=== PATIENT | male | born 1935 | race Caucasian/White ===

== ENCOUNTER 2017-10-01 02:05 | Day surgery (SDC) | payer MEDICARE, BC ==
--- NOTE | 2017-09-27 19:56 | HISTORY AND PHYSICAL ---
DATE OF ADMISSION: October 01, 2017 CHIEF COMPLAINT Lymphoma. HISTORY OF PRESENT ILLNESS This is an 82-year-old male with lung cancer who developed two asymptomatic lumps in subcutaneous tissue on his left chest. These underwent biopsy and these were found to be a lymphoma. He is admitted at this time for port placement and bone marrow biopsy. ALLERGIES IODINE. MEDICATIONS 1. Aspirin 81 mg per day. 2. Cardura. 3. Cymbalta. 4. Diltiazem. 5. Hydrochlorothiazide. 6. Metoprolol. 7. Pravastatin. PAST SURGICAL HISTORY 1. He had a back operation. 2. Bilateral hernia repair. 3. Colonoscopy. 4. Lobectomy of the lung in 2014. 5. Subcutaneous mass biopsy. PHYSICAL EXAMINATION GENERAL: An 82-year-old male in no acute distress. LUNGS: Breath sounds bilaterally. HEART: Regular rhythm. He has a healing biopsy site in the left chest. IMPRESSION Lymphoma. PLAN PowerPort placement and bone marrow biopsy. [facility]
[~2017-10-01] VITALS: Ht 172.7 cm; Wt 74.8 kg
[2017-10-01] VITALS (8 sets, daily range): BP systolic 102–154; BP diastolic 69–109
[~2017-10-01 02:05] MED LIST changes: -HYDR-4309 PO
[2017-10-01] MEDS ORDERED: HEPARIN SOD LCK FLSH 100 UN/ML ONE ×2 (06:22)
[2017-10-01] MEDS ORDERED: NS(*) 0.9% 10 ML VIAL 10 ML ONE (06:23)
[2017-10-01] MEDS ORDERED: ceFAZolin(*) 2GM/D5W 50ML 50 ML IVPB ONE (07:35)
[2017-10-01] MEDS ORDERED: NORMOSOL R SOLN(*) 1000 ML BAG 1,000 ML IV PRN (08:00)
[2017-10-01] MEDS ORDERED: LIDOCAINE/SOD BICARB 8.4% SYR ID ONE (08:00)
[2017-10-01] MEDS ORDERED: MIDAZOLAM 2 MG/2 ML VIAL IVP PRN (08:00)
[2017-10-01] MEDS ORDERED: FAMOTIDINE 20 MG TAB PO ONE (08:00)
[2017-10-01] MEDS ORDERED: LIDO/EPI 1% MDV 1:100,000 20ML INFIL ONE (08:16)
[2017-10-01 08:51] LABS: PLATELET COUNT, AUTOMATED 196 K/uL (150-450)
[2017-10-01] MEDS ORDERED: PROPOFOL EMUL(*) 10MG/ML 20 ML 60 ML ONE (09:54)
[2017-10-01] MEDS ORDERED: LIDOCAINE MPF 1% 5 ML VIAL ONE (09:54)
[2017-10-01] MEDS ORDERED: SUGAMMADEX SOD 200 MG/2 ML SDV ONE (10:00)
[2017-10-01] MEDS ORDERED: KETAMINE HCL 200 MG/20 ML MDV ONE (10:43)
[2017-10-01] MEDS ORDERED: LIDOCAINE 2% JELLY 5 ML TUBE ONE (10:55)
[2017-10-01] MEDS ORDERED: HYDR-4309 PO (11:35)
--- NOTE | 2017-10-01 13:01 | RADIOLOGY IMAGING REPORT ---
FACILITY: [facility] PATIENT NAME: Yung Jha : 1935 MR: [id number] V: [id number] EXAM DATE: ORDERING PHYSICIAN: BINU OROPEZA TECHNOLOGIST: Location: [facility] - [place] Patient: Yung Jha : 1935 Visit/Account:[id number] Date of Sevice: 10/01/2017 Exam: C-ARM FLUORO PORT/CATH Indication: CHEMO PORT PLACEMENT, RAD Comparison: None available Findings: Fluoroscopy is provided for Mediport placement images show placement of right IJ Mediport w ith catheter tip in the superior vena cava. Fluoroscopy time 9.5 seconds DOSE: DAP was 0.86795 mGy*m2. IMPRESSION: Fluoroscopy for Mediport placement Report Dictated By: Jon Harris at 10/01/2017 12:55 PM Report E-Signed By: Jon Harris at 10/01/2017 12:56 PM WSN:[email or web address]
--- NOTE | 2017-10-01 20:00 | RADIOLOGY IMAGING REPORT ---
FACILITY: [facility] - [place] PATIENT NAME: OSMAR LEIVA : [id number] MR: [id number] V: [id number] EXAM DATE: ORDERING PHYSICIAN: JOESPH MCCARTY TECHNOLOGIST: Jasmin Ricardo EXAMINATION:TWO-DIMENSIONAL ECHOCARDIOGRAPH REASON: 2D Measurements (normal values in centimeters) LV endLV endRV endVent.LV PostAorticLeftPercent DiastolicSystolicDiastolicSeptumWallRootAtriumShortening (3.5-5.7)(0.9-2.6)(0.6-1.1)(0.6-1.1)(2.0-3.7)(1.9-4.0)(25-35%) [id number]% STROKE VOLUME: 53 mL ESTIMATED EJECTION FRACTION:63% PARASTERNAL LONG AXIS: Overall left ventricular systolic function appears to be normal. Right ventricle is enlarged. The left atrium is enlarged. There is mild left ventricular thickening but no evidence for any outflow tract obstruction. Mild mitral annular calcification and some aortic sclerosis. Color examination of the valves reveals some mitral insufficiency as well as tricuspid insufficiency present. PARASTERNAL SHORT AXIS: Overall left ventricular function again appears to be normal with mild concentric left ventricular thickening present. The aortic valve is trileaflet in configuration. It is sclerotic but does not appear to be stenotic. Pulmonic valve appears to open normally. Color examination of the pulmonic valve reveals a mild amount of pulmonic insufficiency. Color examination of the aortic valve was unremarkable. Color examination of the tricuspid valve revealed some tricuspid insufficiency. APICAL FOUR AND TWO CHAMBER: Overall left ventricular systolic function appears to be normal. Right ventricle, right atrium and left atrium appear to be enlarged. The left atrium and right atrium are severely enlarged. Left atrial volume is measured at 41 mL/m2. Right atrial volume measured at 39 mL/m2. Mild to moderate amount of both mitral and tricuspid insufficiency is noted. The tricuspid regurgitation V-max is measured at 3.33 m/sec. Estimated right atrial pressure is 15 mmHg giving a total right ventricular systolic pressure of 59 mmHg. No wall motion abnormalities were noted. SUBCOSTAL VIEW: No pericardial effusion is noted. No atrial septal or ventricular septal defects were appreciated. The patient appears to be in atrial flutter with a controlled rate. No thrombi are noted in any of the chambers but the left atrial appendage is not seen. OVERALL IMPRESSION: 1. Normal left ventricular ejection fraction. We were unable to accurately identify the diastolic function as the patient is in atrial flutter. No thrombi are noted in any of the chambers. The left atrial appendage is not seen. 2. There is mild concentric left ventricular thickening. No evidence for any outflow tract obstruction. 3. Mild right ventricular enlargement and severe left atrial and right atrial enlargement. 4. A trileaflet aortic valve with aortic sclerosis but no stenosis. The valve area was measured at 2.9 cm2. 5. A moderate amount of both mitral and tricuspid insufficiency. Estimated right ventricular systolic pressure is 59 mmHg which does include an estimated right atrial pressure of 15 mmHg indicating severe pulmonary hypertension and increased right ventricular systolic pressures. 6. A mild amount of pulmonic insufficiency present. Dictated by: Silvio Torres M.D. on 10/01/2017 at 9:16 Transcribed by: SANTANA on 10/01/2017 at 13:41 Approved by: Silvio Torres M.D. on 10/01/2017 at 19:58 [facility]
--- NOTE | 2017-10-01 21:40 | OPERATIVE REPORT 1 ---
EVENT DATE: October 01, 2017 SURGEON: Gasper Hernandez MD ANESTHESIOLOGIST: Rodríguez Bird MD ANESTHESIA: Sedation. PREOPERATIVE DIAGNOSIS Lymphoma. POSTOPERATIVE DIAGNOSIS Lymphoma. PROCEDURE PERFORMED PowerPort placement. DESCRIPTION OF PROCEDURE The patient was placed in the supine position and given intravenous sedation. His right neck and chest were prepped and draped in a sterile fashion. We anesthetized the skin with 1% Xylocaine with epinephrine. We identified the right internal jugular vein with the ultrasound and used the ultrasound to help guide the needle into position into the internal jugular vein. The guidewire was then passed. Fluoroscopy was used to show the guidewire in place in the superior vena cava. We anesthetized the anterior chest wall and made an incision. We created a pocket for the port. We then tunneled the catheter from the chest site through the neck site. We passed the dilator introducer sheath over the guidewire. We removed the guidewire and dilator and passed the catheter through the sheath. We used fluoroscopy to position the catheter in the superior vena cava. We cut the catheter to the appropriate length and attached it to the port. The port was sutured down with 3-0 nylon. It was aspirated and flushed with saline and heparin. The subcutaneous tissue was reapproximated with 4-0 Maxon. The skin was closed with interrupted 4-0 Maxon. Steri-Strips and Airstrip were placed. The patient tolerated the procedure well with no apparent complications. [facility]
== END 2017-10-01 13:13 | disposition home or self-care (01) ==
LOC: OR 02:05
PROVIDERS: ATTEND Surgery
DX: C85.90 Non-Hodgkin lymphoma, unspecified, unspecified site (principal)
CPT/HCPCS: 36415; 36561; 76942; 77001; 85025; 93306; A9270; C1788; J1642; J2001; J2704; J3490; J0690

== ENCOUNTER → 2017-10-01 | Outpatient (CLI) | payer MEDICARE, BC ==
[~2017-10-01] MED LIST: ASPI-1471 PO; ASPI-715 PO; ASPI-816 PO; DILT-104 PO; DILT180C86 PO; DOXA4TAB58 PO; DOXA8TAB62 PO; DULO30CA35 PO; FLEC50TA16 PO; FLU IM; HYDR-2963 PO; HYDR-2970 PO; HYDR-385 PO; HYDR-4309 PO; METO50TA19 PO; PRAV10TA45 PO
== END ==
LOC: RAD 07:14
PROVIDERS: ATTEND Surgery Vascular Surgery
DX: I51.7 Cardiomegaly (principal); I35.8 Other nonrheumatic aortic valve disorders; I34.0 Nonrheumatic mitral (valve) insufficiency; I27.20 Pulmonary hypertension, unspecified; I37.1 Nonrheumatic pulmonary valve insufficiency

== ENCOUNTER → 2017-11-08 | Outpatient (CLI) | payer MEDICARE, BC ==
[~2017-11-08] MED LIST changes: +APIX5TAB PO; +HYDR-4309 PO; +LORA-1455 PO; +ONDA8TAB94 PO; +PRED50TA22 PO; +PROC10TA4 PO; +TRAM-420 PO
--- NOTE | 2017-11-11 19:27 | RADIOLOGY IMAGING REPORT ---
FACILITY: [facility] [place] PATIENT NAME: OSMAR LEIVA : [id number] MR: [id number] V: [id number] EXAM DATE: ORDERING PHYSICIAN: KAY CLOUD TECHNOLOGIST: Marianne Koehler EXAMINATION:TWO-DIMENSIONAL ECHOCARDIOGRAPH REASON:CHEMO 2D Measurements (normal values in centimeters) LV endLV endRV endVent.LV PostAorticLeftPercent DiastolicSystolicDiastolicSeptumWallRootAtriumShortening (3.5-5.7)(0.9-2.6)(0.6-1.1)(0.6-1.1)(2.0-3.7)(1.9-4.0)(25-35%) [id number] STROKE VOLUME: 48ml ESTIMATED EJECTION FRACTION:63% PARASTERNAL LONG AXIS: Overall left ventricular systolic function appears to be normal. Left atrium appears to be enlarged. There is mild aortic sclerosis but does not appear to be stenotic. Moderate amount of mitral insufficiency is noted. Patient appears to be in atrial flutter. No thrombi are noted & the left atrial appendage is not seen. PARASTERNAL SHORT AXIS: Overall left ventricular systolic function appears to be normal. No wall motion abnormalities are noted. Aortic valve is sclerotic but does not appear to be stenotic. It is trileaflet in configuration. Pulmonic valve also appears to open normally. There is a mild amount of pulmonic insufficiency noted. APICAL FOUR AND TWO CHAMBER: Normal left ventricular ejection fraction. Both atrium are enlarged. The left atrial volume & right atrial volume are increased at 33 & 42ml/m2. Left atrium is mild to moderately enlarged. The right atrium is severely enlarged. Right ventricle is enlarged. This also decreased right ventricular function has a TAPSE measured at 1.4 indicating mild decrease in right ventricular function. No thrombi are noted in the chambers. Left atrial appendage is not seen. Moderate amount of mitral insufficiency is noted. Mitral regurgitant volume is 5ml 10% regurgitant fraction & effective regurgitant orifice is .3. SUBCOSTAL VIEW: No pericardial effusion was noted. No atrioseptal or ventriculoseptal defects were appreciated. The PISA of the mitral regurgitation is .3cm at an aliasing velocity of 31. OVERALL IMPRESSION: 1. Normal left ventricular ejection fraction of 63%. We were unable to accurately characterize the diastolic function as the patient is in atrial fib flutter. No thrombi are noted in the chambers but the left atrial appendage is not seen. 2. Mild decrease in right ventricular function. 3. Mild enlargement of the left atrium & severe enlargement of the right atrium. The right ventricle is also mildly enlarged. 4. A trileaflet aortic valve with aortic sclerosis but no stenosis & no insufficiency was noted. 5. A mild amount of pulmonic insufficiency. 6. A moderate amount of mitral insufficiency but no mitral stenosis. 7. A mild to moderate amount of tricuspid insufficiency with estimated right ventricular systolic pressures of 63mm Hg which does include an estimated right atrial pressure of 15mm Hg indicating severe pulmonary hypertension & increased right ventricular systolic pressures. 8. In comparison to the examination done on 10/01/17 no appreciable change was noted. Dictated by: Silvio Torres M.D. on 11/08/2017 at 18:26 Transcribed by: RIGOBERTO on 11/11/2017 at 13:37 Approved by: Silvio Torres M.D. on 11/11/2017 at 19:26 [facility]
== END ==
LOC: US 14:22
PROVIDERS: ATTEND Nurse Practitioner Family
DX: I48.91 Unspecified atrial fibrillation (principal); I51.7 Cardiomegaly; I25.10 Atherosclerotic heart disease of native coronary artery without angina pectoris; I37.1 Nonrheumatic pulmonary valve insufficiency; I34.0 Nonrheumatic mitral (valve) insufficiency; I27.20 Pulmonary hypertension, unspecified
CPT/HCPCS: 93308; 93325

== ENCOUNTER 2017-11-21 10:00 | Outpatient (RCR) | payer MEDICARE, BC ==
--- NOTE | 2017-10-11 13:20 | PT INITIAL EVALUATION ---
MEDICAL DIAGNOSIS: Lymphoma TREATMENT DIAGNOSIS: Lymphoma, Neuropathy of hands and feet, Generalized Weakness DATE OF ONSET: 10/11/17 SUBJECTIVE: Yung is a 82 year old male presenting to physical therapy following development and initiation of treatment for Lymphoma. Pt is to start R-CHOP regime today, with Neulasta and is to be evaluated for functional well- being. Oncology nurse practitioner is present for pt education. 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 Pt reports that he used to be very active and would work out regularly, but over the last 6 months has had great decline in status. REHAB PROBLEM LIST: Increased Pain Decreased ROM Decreased Strength Impaired Transfers Decreased Endurance Decreased Balance Decreased Function Decreased ADL's Decreased Mobility Decreased Gait PREVIOUS MEDICAL HISTORY: See EMR OCCUPATION: Retired OBJECTIVE: B fingers are tight, swollen and shiny in appearance. Posture: Pt has forward head posture with B rounded shoulders. ROM: ROM to be tested at next visit. Strength: Strength to be tested at next visit. Sensation: Pt reports numbness in distal fingers and toes B. In addition pt reports occasional L arm numbness and numbness in feet that radiates up to the level of the knee with associated swelling. Mobility: Pt must utilize B UE for support with transfer from seated<>standing. Balance: 4 stage balance: NBOS: 30 with increased sway, Mod-Tandem: L fwd: 30 sec, R fwd: 10 sec. Other Objective Findings: ECOG Performance Status: grade 3 FACT-G: PWB: 16, SWB: , EWB: , FWB: 09/26, Total Score: 61/108 ASSESSMENT: Pt shows signs and symptoms consistent with generalized weakness, neuropathy and fatigue associated with lymphoma diagnosis. Physical therapy is indicated to address the above listed impairments as well as decrease further side-effects with oncology intervention. Short Term Goals In 3 months pt will improve static standing balance to >30 tandem B, and >15 seconds SLS B for improved functional mobility and stability, and decreased fall risk. In 3 months pt will maintain and improve FACT-G score to >66/108 for improved well being status with ongoing oncological care. In 6 months pt will be independent with neuropathy program and report no increase in neuropathy in hands or feet. In 3 months pt will maintain and improve FACT-G score to >66/108 for improved well being status with ongoing oncological care. In 6 months pt will improve ECOG Performance Status to grade 2 or lower for improved functional mobility and activity for improved oncological outcomes. In 6 months pt will be independent with HEP to maintain functional strength and mobility for ADL's. Patient's Goals Decrease neuropathy, maintain and improve function. PLAN: Patient to be seen for Manual Therapy/STM/MET Strengthening/condition Ice/Heat Range of Motion Spinal Stabilization Ultrasound Stretching Iontophoresis Neuromuscular Re-ed Closed Chain Program Electrical Stim Posture/Body mechanics Gait Trg/Balance Trg Biofeedback Home Exercise Program Mech./Manual Traction Therapeutic Activities Pelvic Floor 1x/Week for 4 Months If you have any questions, comments, or concerns about this report or plan, please contact me at . Thank you, Christine Iraheta, PT, DPT, CLT MTDD
--- NOTE | 2017-11-04 14:34 | Oncology Note ---
Patient called the clinic on 11-01-17 to report that he will not use the tramadol as prescribed. He reports that it is an opiod "strong opiod" and he was not happy that it was prescribed. In review, he is currently taking ibuprofen 400- 600mg twice daily to three times daily for pain management and is currently on Eliquis. The risks were reviewed with patient to include bleeding and bruising with instructions to avoid any NSAIDS which included Ibuprofen. Tylenol was encouraged if he will not use tramadol. Patient verbalized that he heard my words and understood what I was saying but also reported that he has been fine so far so implied that he was not inclined to make a change. KAY CLOUD JANITORIAL TECH-BC, ONC Nov 04, 2017 14:34
[2017-11-27] MEDS ORDERED: LORA1TAB69 PO (13:04)
== END 2018-01-09 ==
LOC: PT 10:00
PROVIDERS: ATTEND Internal Medicine Hematology
DX: C85.90 Non-Hodgkin lymphoma, unspecified, unspecified site (principal); G62.9 Polyneuropathy, unspecified; M62.81 Muscle weakness (generalized); M54.5 Low back pain; R20.2 Paresthesia of skin; R53.83 Other fatigue
CPT/HCPCS: 97162

== ENCOUNTER 2017-11-27 10:55 | Emergency (ER) | payer MEDICARE, BC ==
--- NOTE | 2017-11-27 11:23 | EKG ---
FACILITY: [facility] PATIENT NAME: OSMAR LEIVA : [id number] MR: [id number] V: [id number] EXAM DATE: ORDERING PHYSICIAN: MARTINEZ BATRES TECHNOLOGIST: Test Reason : AFIB Blood Pressure : / mmHG Vent. Rate : 115 BPM Atrial Rate : 101 BPM P-R Int : 000 ms QRS Dur : 128 ms QT Int : 364 ms P-R-T Axes : 000 081 -20 degrees QTc Int : 503 ms Atrial fibrillation with rapid ventricular response Right bundle branch block Abnormal ECG No previous ECGs available Confirmed by BINH ROBERTS ([id number] on 11/27/2017 7:35:13 PM Referred By: Confirmed By:BINH ROBERTS
--- NOTE | 2017-11-27 11:26 | ER Report ---
History and Physical Time Seen By MD: 11:11 Hx. of Stated Complaint: Patient reported to [facility] he had trouble breathing yesterday. Cancer center reporting weight gain and new onset afib/flutter HPI/ROS CHIEF COMPLAINT: Short of breath HISTORY OF PRESENT ILLNESS: This is an 82-year-old male who presents to the emergency department from the [facility] for a rapid heart rate. 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 Patient is currently receiving chemotherapy for the B cell lymphoma and had his 3rd round of chemotherapy last since then he has not been feeling well progressively getting worse. Patient did call the [facility] yesterday spoke with Gregoria Sloan who suggested that with his increased shortness of breath he should start wearing his oxygen 22/04, however he states that he still having some increased shortness of breath. He did go in for follow -up today to the [facility] they noted his heart rate was in the 130s and subsequently sent him to the emergency department for further evaluation. Patient does have a history of atrial fibrillation. Patient states as long as he is on his oxygen he doesn't feel short of breath. Patient also has increased swelling in his lower extremities since last . He states that normally he has a small amount of edema but not this much. He denies headaches, chills, visual changes, headaches, rashes or chest pain. REVIEW OF SYSTEMS: Constitutional: No fever, no chills. Eyes: No discharge. ENT: No sore throat. Cardiovascular: No chest pain, no palpitations. Respiratory: As above. Gastrointestinal: No abdominal pain, no vomiting. Genitourinary: No hematuria. Musculoskeletal: No back pain. Skin: As above. Neurological: No headache. Allergies: Coded Allergies: Iodinated Contrast Media - IV Dye (Verified Allergy, Mild, RASH, 06/17/15) Home Meds Reported Medications Loratadine/Pseudoephedrine (CLARITIN-D 24 HOUR TABLET) 1 Each Tab.er.24h, 1 EACH PO 11/27/17 Apixaban (ELIQUIS) 5 Mg Tablet, 5 MG PO 1-2XD 10/09/17 Metoprolol Succinate (METOPROLOL SUCCINATE) 50 Mg Tab.er.24h, 1 TAB PO QDAY for Blood Pressure, TAB 08/15/15 Diltiazem Hcl (CARTIA XT) 180 Mg Cap.er.24h, 1 CAP PO BID, #180 CAP 3 Refills 08/06/14 Doxazosin Mesylate (Cardura) 8 Mg Tablet, 8 MG PO DAILY, 0 Refills 05/21/11 Pravastatin Sodium (Pravachol) 10 Mg Tablet, 10 MG PO QDAY, 0 Refills 05/21/11 Hydrochlorothiazide (Hydrochlorothiazide) 50 Mg Tablet, 50 MG PO DAILY, 0 Refills 05/21/11 Discontinued Scripts Prednisone (PREDNISONE) 50 Mg Tablet, 100 MG PO QDAY for 5 Days, #30 TAB 1 Refill Prov:PEDRO LUISGREGORIA Lisa METAL BUFFER-BC, ONC 10/31/17 Past Medical/Surgical History Patient has a past medical and surgical history of A. fib, hypertension, hypercholesterolemia, left upper lobectomy, enlarged prostate, wears glasses, hearing aides, lymphoma, hernia repair, cataracts, tonsillectomy, laminectomy. Reviewed Nurses Notes: Yes Hx Smoking: Yes Smoking Status: Former Smoker Exposure to Second Hand Smoke?: No Hx Substance Use Disorder: No Hx Alcohol Use: Yes Constitutional Vital Sign - Last 24 Hours 11/27/17 11/27/17 11/27/17 11/27/17 11:02 11:02 11:05 11:10 Temp 97.5 Pulse 150 167 121 Resp 20 13 B/P (MAP) 136/101 136/101 (113) Pulse Ox 97 96 98 O2 Delivery Nasal Cannula O2 Flow Rate 2.0 11/27/17 11/27/17 11/27/17 11/27/17 11:25 11:40 11:45 11:50 Pulse 103 100 86 91 Resp 12 16 16 11 Pulse Ox 99 99 99 98 11/27/17 11/27/17 11/27/17 11/27/17 11:53 11:55 12:00 12:10 Pulse 93 86 Resp 15 13 12 B/P (MAP) 129/86 (100) 125/88 (100) Pulse Ox 99 99 98 11/27/17 11/27/17 11/27/17 11/27/17 12:20 12:25 12:35 12:40 Pulse 87 95 ? Resp 11 10 B/P (MAP) 119/88 (98) Pulse Ox 98 99 11/27/17 11/27/17 11/27/17 2/28/18 12:45 12:50 12:55 13:00 Pulse 95 111 111 100 Resp 21 18 15 16 B/P (MAP) 143/84 (103) Pulse Ox 97 98 98 97 11/27/17 11/27/17 11/27/17 11/27/17 13:05 13:08 13:13 13:18 Pulse 104 111 107 99 Resp 13 12 9 13 Pulse Ox 98 97 95 92 11/27/17 11/27/17 11/27/17 11/27/17 13:20 13:23 13:28 13:33 Pulse 101 97 94 Resp 19 17 13 B/P (MAP) 127/78 (94) Pulse Ox 97 97 97 11/27/17 11/27/17 11/27/17 11/27/17 13:38 13:41 13:46 13:47 Pulse 89 85 93 Resp 12 14 16 B/P (MAP) 141/90 (107) Pulse Ox 97 97 98 Physical Exam General Appearance: The patient is alert, has no immediate need for airway protection and no signs of toxicity. Eyes: Pupils equal and round no pallor or injection. ENT, Mouth: Mucous membranes are moist. Respiratory: There are no retractions, lungs are clear to auscultation, no lung sounds to the left upper lobe due to left upper lobectomy. No crackles or course sounds. Cardiovascular: Irregular rate and rhythm, no murmurs, clicks or rubs. Gastrointestinal: Abdomen is soft and non tender, no masses, bowel sounds normal. Neurological: Alert and oriented 4. Moving all extremities. Following all commands. No focal neuro deficits. Skin: Warm and dry, no rashes. Musculoskeletal: Neck is supple non tender. Extremities bilateral lower extremity 1+ pitting edema. No erythema or cellulitic appearing skin. DIFFERENTIAL DIAGNOSIS: After history and physical exam differential diagnosis was considered for shortness of breath including but not limited to pulmonary infectious process, COPD, asthma, pulmonary embolus and congestive heart failure. Medical Decision Making Data Points Result Diagram: 11/27/17 1123 11/27/17 1123 Laboratory Hematology Test 11/27/17 11:23 Red Blood Count 3.66 M/uL (4.00-5.60) Mean Corpuscular Volume 92.1 fL (80.0-96.0) Mean Corpuscular Hemoglobin 31.2 pg (26.0-33.0) Mean Corpuscular Hemoglobin Concent 33.9 g/dL (32.0-36.0) Red Cell Distribution Width 16.2 % (11.5-14.5) Mean Platelet Volume 9.4 fL (7.2-11.1) Neutrophils (%) (Auto) 91.8 % (39.4-72.5) Lymphocytes (%) (Auto) 2.5 % (17.6-49.6) Monocytes (%) (Auto) 5.0 % (4.1-12.4) Eosinophils (%) (Auto) 0.4 % (0.4-6.7) Basophils (%) (Auto) 0.3 % (0.3-1.4) Nucleated RBC Relative Count (auto) 0.0 /100WBC Neutrophils # (Auto) 12.6 K/uL (2.0-7.4) Lymphocytes # (Auto) 0.3 K/uL (1.3-3.6) Monocytes # (Auto) 0.7 K/uL (0.3-1.0) Eosinophils # (Auto) 0.0 K/uL (0.0-0.5) Basophils # (Auto) 0.0 K/uL (0.0-0.1) Nucleated RBC Absolute Count (auto) 0.00 K/uL Peripheral Blood Smear Yes Y/N D-Dimer Quantitative (PE/DVT) 1.44 ug/ml (0-0.50) Sodium Level 131 mmol/L (137-145) Potassium Level 3.6 mmol/L (3.5-5.0) Chloride Level 91 mmol/L (98-107) Carbon Dioxide Level 31 mmol/L (22-30) Blood Urea Nitrogen 21 mg/dl (9-21) Creatinine 0.80 mg/dl (0.66-1.25) Glomerular Filtration Rate Calc > 60.0 Random Glucose 90 mg/dl (75-110) Calcium Level 8.6 mg/dl (8.4-10.2) Total Bilirubin 0.9 mg/dl (0.2-1.3) Aspartate Amino Transf (AST/SGOT) 24 U/L (0-35) Alanine Aminotransferase (ALT/SGPT) 62 U/L (0-56) Alkaline Phosphatase 141 U/L (0-126) Troponin I < 0.012 ng/ml B-Type Natriuretic Peptide 205 pg/ml (0-100) Total Protein 5.9 gm/dl (6.3-8.2) Albumin 3.0 g/dl (3.5-5.0) Chemistry Test 11/27/17 11:23 White Blood Count 13.7 k/uL (4.5-11.0) Red Blood Count 3.66 M/uL (4.00-5.60) Hemoglobin 11.4 g/dL (14.0-18.0) Hematocrit 33.7 % (42.0-52.0) Mean Corpuscular Volume 92.1 fL (80.0-96.0) Mean Corpuscular Hemoglobin 31.2 pg (26.0-33.0) Mean Corpuscular Hemoglobin Concent 33.9 g/dL (32.0-36.0) Red Cell Distribution Width 16.2 % (11.5-14.5) Platelet Count 59 K/uL (150-450) Mean Platelet Volume 9.4 fL (7.2-11.1) Neutrophils (%) (Auto) 91.8 % (39.4-72.5) Lymphocytes (%) (Auto) 2.5 % (17.6-49.6) Monocytes (%) (Auto) 5.0 % (4.1-12.4) Eosinophils (%) (Auto) 0.4 % (0.4-6.7) Basophils (%) (Auto) 0.3 % (0.3-1.4) Nucleated RBC Relative Count (auto) 0.0 /100WBC Neutrophils # (Auto) 12.6 K/uL (2.0-7.4) Lymphocytes # (Auto) 0.3 K/uL (1.3-3.6) Monocytes # (Auto) 0.7 K/uL (0.3-1.0) Eosinophils # (Auto) 0.0 K/uL (0.0-0.5) Basophils # (Auto) 0.0 K/uL (0.0-0.1) Nucleated RBC Absolute Count (auto) 0.00 K/uL Peripheral Blood Smear Yes Y/N D-Dimer Quantitative (PE/DVT) 1.44 ug/ml (0-0.50) Glomerular Filtration Rate Calc > 60.0 Calcium Level 8.6 mg/dl (8.4-10.2) Total Bilirubin 0.9 mg/dl (0.2-1.3) Aspartate Amino Transf (AST/SGOT) 24 U/L (0-35) Alanine Aminotransferase (ALT/SGPT) 62 U/L (0-56) Alkaline Phosphatase 141 U/L (0-126) Troponin I < 0.012 ng/ml B-Type Natriuretic Peptide 205 pg/ml (0-100) Total Protein 5.9 gm/dl (6.3-8.2) Albumin 3.0 g/dl (3.5-5.0) Coagulation Test 11/27/17 11:23 D-Dimer Quantitative (PE/DVT) 1.44 ug/ml EKG/Imaging EKG Interpretation 12 lead EKG: Time of EKG 1113. Rhythm: Atrial fibrillation, RVR with a rate of 1:15. [place]: Right bundle branch block. QRS: normal ST segments: No ST segment elevation or depression identified. Inverted T waves in V1, V2, V3, V4. No reciprocal changes. This is significantly different from the 06/17/2015 EKG, the previous EKG showing sinus spray cardiac with a right bundle branch block. 12 lead EKG: Repeat EKG time 1227. Rhythm: Atrial fibrillation with PACs, 97 bpm. [place]: Bundle-branch block. QRS: normal ST segments: No ST depression or elevation identified. Imaging Location: [facility] Patient: Yung Jha : 1935 Visit/Account:[id number] Date of Sevice: 11/27/2017 CHEST W/O CONTRAST History: increased shortness of breath history of left lung cancer TECHNIQUE: Contiguous axial images were performed through the chest to the level of the adrenal glands. No IV contrast was administered. Coronal and sagittal reformatting was also performed. Dose Lowering Technique One of the following dose optimization techniques was utilized in the performance of this exam: Automated exposure control; adjustment of the mA and/ or kV according to the patient's size; or use of an iterative reconstruction technique. Specific details can be referenced in the facility's radiology CT exam operational policy. COMPARISON STUDIES: PET/CT September 10, 2017 Lungs / Pleura: There has been a decrease in the left pleural effusion although remains moderate in size. There is now a tiny right pleural effusion Subtle patchy groundglass opacities in the right lung appears similar to the prior study. Postsurgical changes about the left hilum with adjacent soft tissue density material appears similar to the prior study.. Mediastinum/nodes: There are calcified pretracheal and right hilar lymph nodes. The previous enlarged lymph nodes just anterior to the inferior right atrium are no longer seen Heart and vessels: At least moderate vascular calcifications are seen in the thoracic aorta and branch vessels including the coronary arteries. Musculoskeletal / Body wall: No aggressive appearing bone lesions are seen Upper abdomen: There is a large hiatal hernia. Calcified granulomas are present in the spleen IMPRESSION: Post surgical changes about the left hilum again noted with adjacent soft tissue density material that appears similar to the prior PET/CT There has been a partial decrease in left pleural effusion although remains moderate in size New tiny right pleural effusion Subtle patchy groundglass opacities throughout the right lung appears some are to the prior study may be chronic although an acute infectious/inflammatory process not excluded Evidence of a prior granulomatous process The previously enlarged lymph nodes just anterior and inferior to the right atrium are no longer seen Large hiatal hernia Report Dictated By: Tamara Flores MD at 11/27/2017 12:06 PM Report E-Signed By: Tamara Flores MD at 11/27/2017 12:18 PM WSN:TERENCE ED Course/Re-evaluation Clinical Indication for ER IV: IV Access ED Course The patient was admitted to room. His general physical obtained. Different diagnoses were considered. Patient's port was accessed. A CBC, CMP and d-dimer were obtained. Patient's WBCs 13.7, neutrophils 91.8 hemoglobin 11.4, hematocrit 33.7, sodium 131, BNP 205, d-dimer 1.44. Noncontrast CT showing similar postsurgical changes on the left hilum, decreased left pleural effusion although still moderate in size, small right pleural effusion, subtle groundglass opacities through the right lung which may be chronic or acute infectious and inflammatory. The previously enlarged lymph nodes in the right atrium are no longer seen and a large hiatal hernia. I did review these results with the patient and his . I also had Dr. Guzman with patient regarding his disease process and the concerns about the lower extremity edema his increased shortness of breath. The patient was adamant about speaking with Dr. Tellez from the oncology unit before he made any decisions. We also wanted to ultrasound his lower extremities to evaluate for possible DVTs. which he refused as noted below. We also wanted to admit the patient to the hospital for a VQ scan as his d-dimer was elevated which he refused. Could not use contrast with the chest CT as he does have an allergy to IV contrast. Dr. Biggs did come speak with patient and ultimately the patient decided to go home and will follow up with the oncology unit. Patient did sign out AMA as it was my recommendation that he stay in the hospital. The patient did not want to start any other medications at this time. Patient is very adamant about leaving and does not want stay in the hospital, does not want any further at this time. I did explain to the patient that even though he's signing out AMA he concerned they come back any time if he chooses to patient expressed understanding and was discharged home. Patient was in agreement with this plan of care. 11/27/2017 1:15:17 pm patient refused the bilateral venous ultrasound. Decision to Disposition Date: Nov 27, 2017 Decision to Disposition Time: 13:39 Depart Departure Latest Vital Signs Vital Signs Date Time Temp Pulse Resp B/P (MAP) Pulse Ox O2 Delivery O2 Flow Rate FiO2 11/27/17 13:47 141/90 (107) 11/27/17 13:46 93 16 98 11/27/17 11:02 2.0 11/27/17 11:02 97.5 Nasal Cannula Impression: Primary Impression: Lower extremity edema Additional Impressions: Atrial fibrillation with RVR Left against medical advice Condition: Condition Unchanged Disposition: AGAINST MED ADV / DISCONT CARE Referrals: DURGA TELLEZ MD Patient Instructions: A-fib (Atrial Fibrillation) (ED), Leg Edema (ED) Additional Instructions: It was our recommendation that you stay in the hospital for your edema in the legs, the afib and a possible echo and VQ scan, you have elected to go home, even though you have singed out AMA, this does not mean that you cannot return to the ED. Drink plenty of fluids. Get plenty of rest. Continue with your current medications. Follow-up with Dr. Tellez as indicated. Please return to the emergency department for any other concerns or worsening symptoms. Problem Qualifiers MARTINEZ BATRES METAL BUFFER-BC Nov 27, 2017 11:26
[2017-11-27 11:39] LABS: PLATELET COUNT, AUTOMATED 59 K/uL (150-450)
--- NOTE | 2017-11-27 12:21 | RADIOLOGY IMAGING REPORT ---
FAC[place] [facility] [place] NAME: Yung Jha : 1935 MR: [id number] V: [id number] EXAM DATE: ORDERING PHYSICIAN: MARTINEZ BATRES TECHNOLOGIST: Location: [facility] Patient: Yung Jha : 1935 Visit/Account:[id number] Date of Sevice: 11/27/2017 CHEST W/O CONTRAST History: increased shortness of breath history of left lung cancer TECHNIQUE: Contiguous axial images were performed through the chest to the level of the adrenal gla nds. No IV contrast was administered. Coronal and sagittal reformatting was also performed. Dose Lowe ring Technique One of the following dose optimization techniques was utilized in the performance of this exam: Autom ated exposure control; adjustment of the mA and/or kV according to the patient's size; or use of an i terative reconstruction technique. Specific details can be referenced in the facility's radiology C T exam operational policy. COMPARISON STUDIES: PET/CT September 10, 2017 Lungs / Pleura: There has been a decrease in the left pleural effusion although remains moderate in size. There is now a tiny right pleural effusion Subtle patchy groundglass opacities in the right lung appears similar to the prior study. Postsurgical changes about the left hilum with adjacent sof t tissue density material appears similar to the prior study.. Mediastinum/nodes: There are calcified pretracheal and right hilar lymph nodes. The previous enlarg ed lymph nodes just anterior to the inferior right atrium are no longer seen Heart and vessels: At least moderate vascular calcifications are seen in the thoracic aorta and bran ch vessels including the coronary arteries. Musculoskeletal / Body wall: No aggressive appearing bone lesions are seen Upper abdomen: There is a large hiatal hernia. Calcified granulomas are present in the spleen IMPRESSION: Post surgical changes about the left hilum again noted with adjacent soft tissue density material lisa t appears similar to the prior PET/CT There has been a partial decrease in left pleural effusion although remains moderate in size New tiny right pleural effusion Subtle patchy groundglass opacities throughout the right lung appears some are to the prior study may be chronic although an acute infectious/inflammatory process not excluded Evidence of a prior granulomatous process The previously enlarged lymph nodes just anterior and inferior to the right atrium are no longer seen Large hiatal hernia Report Dictated By: Tamara Flores MD at 11/27/2017 12:06 PM Report E-Signed By: Tamara Flores MD at 11/27/2017 12:18 PM WSN:TERENCE
[2017-11-27] MEDS ORDERED: DILTIAZEM 5 MG/ML 5ML IVPUSH IVP ONE (12:55)
[2017-11-27] MEDS ORDERED: LORA1TAB69 PO (13:04)
--- NOTE | 2017-11-27 13:04 | EKG ---
FACILITY: [facility] PATIENT NAME: OSMAR LEIVA : [id number] MR: [id number] V: [id number] EXAM DATE: ORDERING PHYSICIAN: MARTINEZ BATRES TECHNOLOGIST: DANIE Duckworth Reason : REPEAT Blood Pressure : / mmHG Vent. Rate : 097 BPM Atrial Rate : 208 BPM P-R Int : 000 ms QRS Dur : 134 ms QT Int : 370 ms P-R-T Axes : 000 082 -30 degrees QTc Int : 469 ms Atrial fibrillation Right bundle branch block Abnormal ECG Confirmed by BINH ROBERTS ([id number] on 11/27/2017 7:37:49 PM Referred By: MARTINEZ Confirmed By:BINH ROBERTS
[2017-11-27 13:47] VITALS: BP 141/90
[2017-11-27] MEDS ORDERED: HEPARIN FLSH (PORT) 500 UN/5ML ONE (13:55)
== END 2017-11-27 14:06 ==
LOC: ER 11:01
DX: I48.91 Unspecified atrial fibrillation (principal); I45.10 Unspecified right bundle-branch block; J90 Pleural effusion, not elsewhere classified; R60.0 Localized edema
CPT/HCPCS: 71250; 83880; 84484; 85025; 85379; 93005; 96374; 99284; J1642; J3490; 82040; 82247; 82310; 82374; 82435; 82565; 82947; 84075; 84132; 84155; 84295; 84450; 84460; 84520

== ENCOUNTER → 2017-12-25 | Outpatient (RCR) | payer MEDICARE, BC ==
[2017-09-27 12:28] VITALS: BP 125/77
--- NOTE | 2017-09-27 16:57 | ONC Progress Note - NP.Halsey ---
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 Patient had PET-CT scan concerning for metastatic disease which was followed by a biopsy of soft tissue nodule by Dr. Hernandez. Results indicated diffuse large B-cell lymphoma. Patient verbalized knowledge of the diagnosis and was seen today to discuss possible treatment options with R CHOP or R CVP. In preparation patient will need a bone marrow biopsy for complete staging studies, echocardiogram, port placement , and education. In discussion of staging studies and the necessity, patient shares that he does not have recurrent lung cancer and that on the recent PET there was no evidence of recurrent lung cancer. I did not argue with the patient or disagree because there is no proof of what the disease may be, however he does have interval development of hypermetabolic subcutaneous nodules within the chest, left chest wall, left neck, right cardiophrenic angle and curvilinear soft tissue anterior to the left heart metabolic activity. In addition there is new osseous metastasis within the proximal left humerus as well as multiple ribs which are concerning for lung metastasis versus B-cell lymphoma. Problem List (1) Fatigue (2) Adenocarcinoma of left lung (3) Encounter for peripherally inserted central catheter flush (4) Bilateral inguinal hernia (5) Bronchospasm (6) Dyspnea on exertion (7) History of lung cancer (8) Hypertension (9) Hypercholesteremia Oncology History 1. 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 April 15, 2017, CT chest: No significant change from September 2016; previous left upper lobectomy without locally recurrent or measurable metastatic disease; small partially loculated left pleural effusion, moderate-sized hiatal hernia, moderate coronary artery and aortic valve calcification. Stage IIIA (pT2a N2 M0) adenocarcinoma of the left upper lobe, status post left upper lobectomy with mediastinal sampling. A MET splice site variant is present (exon 14) Medical Oncologist: Dr. Tellez. Radiation Oncologist: Dr. Shaikh. Cardiothoracic Surgeon: Dr. Zavala. Certified Procedural Coder: Dr. Carballo. - April 03, 2015 CT Chest: Left upper lobe mass abutting left superior mediastinum and upper left hilum with mildly prominent left hilar lymph nodes, borderline prominent mediastinal lymph nodes. - April 20, 2015: Bronchoscopy. Pathology: Subcarinal lymph node negative, hilar lymph node negative, left upper lobe brushing consistent with adenocarcinoma, left upper lobe needle aspirate consistent with adenocarcinoma. - April 25, 2015 CT-PET: Spiculated mass of the medial left upper lobe measuring 3 x 4.6 cm, SUV = 21.4. Left suprahilar lymph node with an SUV of 9.6 , but no hypermetabolic mediastinal lymphadenopathy and no evidence of metastatic disease. - May 11, 2015: Left upper lobectomy with mediastinal sampling complicated by pneumothorax. 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 Perineural invasion was present, however. One peribronchial lymph node was positive and one AP window lymph node was positive (2 of 20 lymph nodes total). Surgical stage: pT2a pN0 cM0. Molecular profiling: ALK, EGFR, BRAF, and HER2/dayne are negative. The sample was positive for a KRAS mutation as well as a MET splice site variant (exon 14). - July 18, 2015: Initiation of adjuvant carboplatin/paclitaxel with plan for two cycles, followed by adjuvant radiation therapy. All treatment was complete in September 2015. - January 02, 2016 CT-PET: Interval left lobectomy, moderate left pleural effusion ; no evidence of residual or metastatic glucose-active disease; minimal ascites. - April 13, 2016 CT Chest: Postop changes to the left lung, moderate left pleural effusion; no evidence of recurrent disease. - October 15, 2016 CT Chest: Stable postoperative changes of left upper lobectomy. No evidence of recurrent lung carcinoma or metastatic disease. There is a large gastric hiatal hernia. - September 10, 2017 CT PET Scan: Interval development of multifocal areas of hypermetabolic metastatic disease; multiple hypermetabolic subcutaneous nodules within chest; interval development of hypermetabolic left neck base lymph node, right cardiophrenic angle lymph nodes; ill-defined curvilinear soft tissue anterior to left heart with new hypermetabolic activity; new osseous metastasis within proximal left humerus and multiple ribs; sclerosis within right cricoid cartilage with low level metabolic uptake; post surgical changes from left upper lobectomy. 10/01/2017, bone marrow biopsy and port placement with Dr. Hernandez. Medical History Family History: CLL (chronic lymphoid leukemia) BROTHER OR SISTER (CLL) FH: bladder cancer FATHER (95) Psychosocial History Smoking History: Yes Smoking Status: Former Smoker Medications and Allergies Reported Medications Duloxetine Hcl (CYMBALTA) 30 Mg Capsule.dr, 30 MG PO QDAY, #5 CAP 08/28/17 Aspirin (ASPIR 81) 81 Mg Tablet.dr, 162 MG PO QDAY, TAB 10/23/16 Metoprolol Succinate (METOPROLOL SUCCINATE) 50 Mg Tab.er.24h, 1 TAB PO QDAY for Blood Pressure, TAB 08/15/15 Diltiazem Hcl (CARTIA XT) 180 Mg Cap.er.24h, 1 CAP PO BID, #180 CAP 3 Refills 08/06/14 Doxazosin Mesylate (Cardura) 8 Mg Tablet, 8 MG PO DAILY, 0 Refills 05/21/11 Pravastatin Sodium (Pravachol) 10 Mg Tablet, 10 MG PO QDAY, 0 Refills 05/21/11 Hydrochlorothiazide (Hydrochlorothiazide) 50 Mg Tablet, 50 MG PO DAILY, 0 Refills 05/21/11 Allergies: Coded Allergies: Iodinated Contrast Media - IV Dye (Verified Allergy, Mild, RASH, 06/17/15) Review of System/Physical Exam Review of Systems All Systems Reviewed/Normal: Yes, Except as Noted Respiratory: Positive for Shortness of Breath Hematologic: Positive for Fatigue, Positive for Weakness Psychiatric: Anxiety, Depression Physical Exam Vital Signs Temperature: 97.1 Pulse: 76 BP Systolic: 125 BP Diastolic: 77 Respiratory Rate: 16 O2 SAT: 92 O2 Delivery: Height (inches) 68.50 Weight lb: 188 Weight oz: Weight Kg (Bryant): Pain: 0 ECOG Score: 2 General: Stable, Well Developed, Well Nourished, Not In Acute Distress Psychiatric: Mood appears normal, Affect appears normal Other The rest of the exam was deferred today. I'm was spent reviewing pathology, PET/ CT, and upcoming studies and the necessity of the studies. Assessment and Plan Assessment & Plan 1. Stage III adenocarcinoma of the left lung: PET/CT suggesting new osseous metastasis within the proximal left humerus as well as multiple ribs on 2016. This is only suggestive of metastatic recurrence 2. 09/18/2017 subcutaneous nodule biopsy indicating diffuse large B-cell lymphoma. Staging studies to be completed include bone marrow biopsy, FISH on the current pathology 2-D echocardiogram for left ventricular ejection fraction , and a port placement. Discussion regarding possible treatment with R CHOP or RV CP reviewed with patient today. Patient is concerned of his current cardiac status. I had a lengthy discussion with patient regarding treatment, side effects, management of side effects and his current status with increasing fatigue and weakness causing the inability for him to do any physical activity at this time. Patient is willing to complete staging studies with Dr. Hernandez which will occur next Saturday. Results will be obtained and patient will follow with Dr. Chris on 10/07/2017 to discuss plan of care. I spent a total of 40 minutes of time face to face with the patient today with over 50% of the time spent in direct counseling and coordination of care. Copies to: YENI FONG MD; DURGA TELLEZ MD, NANCY J RED HAT ENGINEER-BC, ONC Sep 27, 2017 16:57
[2017-10-09 15:10] VITALS: BP 115/69
--- NOTE | 2017-10-09 22:48 | ONCOLOGY FOLLOW UP NOTE ---
EVENT DATE: October 09, 2017 REASON FOR FOLLOWUP 1. Stage III adenocarcinoma of left lung, status post resection and sequential adjuvant chemotherapy and radiation. 2. Newly diagnosed diffuse large B cell lymphoma. INTERIM HISTORY Geovany returns to clinic for a follow-up visit today. He is accompanied by his . He reports that he still continues to feel rather miserable in general. He feels quite fatigued, but he does his best to push through it. His pain is about the same as prior, he reports no high spiking fevers or drenching sweats. He feels like he may have lost some weight. He just feels generally run down. He reports that the "knots" under his skin have grown since our prior visit. He has undergone a biopsy of one of these nodules, and the biopsy has revealed evidence of diffuse large B cell lymphoma, as opposed to lung cancer recurrence that had previously been suspected. Since that time, he has undergone port placement, echocardiogram, and bone marrow biopsy. REVIEW OF SYSTEMS Otherwise negative, and all systems were reviewed. ONCOLOGY HISTORY 1. 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 April 15, 2017, CT chest: No significant change from September 2016; previous left upper lobectomy without locally recurrent or measurable metastatic disease; small partially loculated left pleural effusion, moderate-sized hiatal hernia, moderate coronary artery and aortic valve calcification. * Stage IIIA (pT2a N2 M0) adenocarcinoma of the left upper lobe, status post left upper lobectomy with mediastinal sampling. A MET splice site variant is present (exon 14) * Medical Oncologist: Dr. Kelly. * Radiation Oncologist: Dr. Shaikh. * Cardiothoracic Surgeon: Dr. Zavala. * Assistant Professor Sculpture: Dr. Carballo. - April 03, 2015 CT Chest: Left upper lobe mass abutting left superior mediastinum and upper left hilum with mildly prominent left hilar lymph nodes, borderline prominent mediastinal lymph nodes. - April 20, 2015: Bronchoscopy. Pathology: Subcarinal lymph node negative, hilar lymph node negative, left upper lobe brushing consistent with adenocarcinoma, left upper lobe needle aspirate consistent with adenocarcinoma. - April 25, 2015 CT-PET: Spiculated mass of the medial left upper lobe measuring 3 x 4.6 cm, SUV = 21.4. Left suprahilar lymph node with an SUV of 9.6 , but no hypermetabolic mediastinal lymphadenopathy and no evidence of metastatic disease. - May 11, 2015: Left upper lobectomy with mediastinal sampling complicated by pneumothorax. 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 Perineural invasion was present, however. One peribronchial lymph node was positive and one AP window lymph node was positive (2 of 20 lymph nodes total). Surgical stage: pT2a pN0 cM0. Molecular profiling: ALK, EGFR, BRAF, and HER2/dayne are negative. The sample was positive for a KRAS mutation as well as a MET splice site variant (exon 14). - July 18, 2015: Initiation of adjuvant carboplatin/paclitaxel with plan for two cycles, followed by adjuvant radiation therapy. All treatment was complete in September 2015. - January 02, 2016 CT-PET: Interval left lobectomy, moderate left pleural effusion ; no evidence of residual or metastatic glucose-active disease; minimal ascites. - April 13, 2016 CT Chest: Postop changes to the left lung, moderate left pleural effusion; no evidence of recurrent disease. - October 15, 2016 CT Chest: Stable postoperative changes of left upper lobectomy. No evidence of recurrent lung carcinoma or metastatic disease. There is a large gastric hiatal hernia. - September 10, 2017 CT PET Scan: Interval development of multifocal areas of hypermetabolic metastatic disease; multiple hypermetabolic subcutaneous nodules within chest; interval development of hypermetabolic left neck base lymph node, right cardiophrenic angle lymph nodes; ill-defined curvilinear soft tissue anterior to left heart with new hypermetabolic activity; new osseous metastasis within proximal left humerus and multiple ribs; sclerosis within right cricoid cartilage with low level metabolic uptake; post surgical changes from left upper lobectomy. 2. Diffuse large B cell lymphoma. - Diagnosis made by way of biopsy of subcutaneous nodule that had presented on follow-up imaging for surveillance of his lung cancer. - Status post bone marrow biopsy that shows no involvement of diffuse large B cell lymphoma. PAST MEDICAL HISTORY 1. Hyperlipidemia. 2. Hypertension. 3. History of paroxysmal atrial fibrillation. 4. Gastroesophageal reflux disease with hiatal hernia. 5. History of reflux esophagitis. 6. History of renal insufficiency. 7. BPH. 8. Stage 3 chronic kidney disease. 9. History of nocturia. CURRENT MEDICATIONS 1. Cymbalta (patient recently discontinued due to fatigue). 2. Metoprolol. 3. Diltiazem. 4. Cardura. 5. Pravastatin. 6. Hydrochlorothiazide. 7. Eliquis. ALLERGIES IV CONTRAST DYE, which reportedly causes rash. IMAGING Please see recent CT PET scan results. Echocardiogram recently performed reveals an estimated ejection fraction of 63%. The patient was in atrial flutter at the time of his study, making estimation of diastolic function difficult. PATHOLOGY Recent bone biopsy reveals no evidence of diffuse large B cell lymphoma involvement. ASSESSMENT AND PLAN 1. Diffuse large B cell lymphoma. I had an extensive visit with Geovany and his today. We discussed his recent diagnosis of diffuse large B cell lymphoma , the nature of the malignancy, and the goals of treatment, should he choose to receive it. He understands well that the cornerstone of therapy for diffuse large B cell lymphoma is chemotherapy, and the CT-PET scan is indicative of multifocal extranodal disease. We also did discuss that we cannot guarantee 100 % that he is not simultaneously experiencing a relapse of his lung cancer. Geovany understands this. We did discuss the possibility of having him go for an additional biopsy, perhaps of the humerus lesion, but he would much rather get started on treatment for his lymphoma, and this is certainly reasonable. We discussed that if he receives chemotherapy, and he has follow-up imaging that shows somewhat of a "mixed response" to lymphoma-directed chemo, the likelihood of simultaneous recurrence of his lung cancer is made much more likely. We will need to pay particular attention to this on follow-up imaging. The next topic today was for his atrial flutter. He has been aware of this for some time, but he has absolutely refused to start any type of anticoagulation despite recommendations for this by Cardiology. He has recently discussed things with Cardiology, and he has agreed to begin Eliquis. He started it a few days ago, and so far it is going well. He has had no abnormal bleeding. As discussed, I would like to discuss his situation further with Dr. Chan, who is his umbrella tipper in Electrophysiology. I would like to have his input, as we do need to make important decisions about his chemotherapy regimen (R-CHOP versus omission of adriamycin for R-CVP). We extensively discussed this decision today, as well. For his current age and performance status, as well as comorbidities, R-CHOP is likely the most aggressive regimen that Geovany would be able to tolerate. That said, R-CHOP would be our preference for his chemotherapy regimen to give him the best chance at complete remission that is sustained over time. If there is particular concern for cardiotoxicity, I would opt to either dose reduce or omit his adriamycin completely. Today, we have decided to have Geovany start with R-CVP, as he is very anxious to get started with treatment. After review with Cardiology, we may be able to add adriamycin to his regimen. Stage III lung adenocarcinoma. We had previously planned to try crizotinib therapy on the assumption that his CT-PET scan findings represented metastatic recurrence of his previously diagnosed lung adenocarcinoma, which does harbor a MET splice site variant. Please see above discussion. At this point, we will hold off on any further systemic therapy for his lung cancer, unless we have solid evidence in the future to strongly suggest that he is dealing with both a recurrence of his lung cancer and simultaneous new diagnosis of diffuse large B cell lymphoma. 2. Atrial flutter. As above. I spent a total of 45 minutes of [id number] time with Geovany and his today, and 40 minutes of this was spent in direct counseling and coordination of care. I will plan to see him back during my next visit to [facility] [place]. He will need to undergo chemotherapy education, and begin his chemotherapy as soon as possible. MTDD
[2017-10-11 08:14] VITALS: BP 118/75
[2017-10-11] MEDS: NS(*) 0.9% 500 ML BAG 500 ML IV PRN (08:37)
[2017-10-11] MEDS: PALONOSETRON 0.25 MG/5 ML VIAL IVP PRN (09:35)
[2017-10-11] MEDS: diphenhydrAMINE 50 MG/ML VIAL IVP PRN (09:36)
[2017-10-11] MEDS: ACETAMINOPHEN 325 MG TAB PO PRN (09:36)
--- NOTE | 2017-10-11 10:03 | ONC Progress Note - NP.Halsey ---
Patient History Date of Service Oct 11, 2017 Reason For Visit/HPI Patient is seen in the clinic today for education prior to starting R CVP for his newly diagnosed diffuse large B-cell lymphoma. Patient recently followed with Dr. Kelly and plan of care was discussed. Dr. Kelly plans to visit with Dr. Chan regarding Adriamycin therapy. Cycle 2 may be changed to R CHOP depending on their decision. Patient is aware of side effects related to treatment. Patient currently is experiencing increased fatigue, night sweats last night, weakness related to the fatigue and occasional cough. 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 Recent PET/CT scan was concerning for metastatic disease of the lung. Currently the plan of care will be to monitor with a repeat PET/CT scan post 2-3 cycles and this information should help determine how patient is responding to current chemotherapy. If there are areas that are not responding this may highly suggest recurrent lung cancer. Patient verbalizes understanding. Oncology History 1. 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 April 15, 2017, CT chest: No significant change from September 2016; previous left upper lobectomy without locally recurrent or measurable metastatic disease; small partially loculated left pleural effusion, moderate-sized hiatal hernia, moderate coronary artery and aortic valve calcification. Stage IIIA (pT2a N2 M0) adenocarcinoma of the left upper lobe, status post left upper lobectomy with mediastinal sampling. A MET splice site variant is present (exon 14) Medical Oncologist: Dr. Kelly. Radiation Oncologist: Dr. Shaikh. Cardiothoracic Surgeon: Dr. Zavala. Golf Course Manager: Dr. Carballo. - April 03, 2015 CT Chest: Left upper lobe mass abutting left superior mediastinum and upper left hilum with mildly prominent left hilar lymph nodes, borderline prominent mediastinal lymph nodes. - April 20, 2015: Bronchoscopy. Pathology: Subcarinal lymph node negative, hilar lymph node negative, left upper lobe brushing consistent with adenocarcinoma, left upper lobe needle aspirate consistent with adenocarcinoma. - April 25, 2015 CT-PET: Spiculated mass of the medial left upper lobe measuring 3 x 4.6 cm, SUV = 21.4. Left suprahilar lymph node with an SUV of 9.6 , but no hypermetabolic mediastinal lymphadenopathy and no evidence of metastatic disease. - May 11, 2015: Left upper lobectomy with mediastinal sampling complicated by pneumothorax. 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 Perineural invasion was present, however. One peribronchial lymph node was positive and one AP window lymph node was positive (2 of 20 lymph nodes total). Surgical stage: pT2a pN0 cM0. Molecular profiling: ALK, EGFR, BRAF, and HER2/dayne are negative. The sample was positive for a KRAS mutation as well as a MET splice site variant (exon 14). - July 18, 2015: Initiation of adjuvant carboplatin/paclitaxel with plan for two cycles, followed by adjuvant radiation therapy. All treatment was complete in September 2015. - January 02, 2016 CT-PET: Interval left lobectomy, moderate left pleural effusion ; no evidence of residual or metastatic glucose-active disease; minimal ascites. - April 13, 2016 CT Chest: Postop changes to the left lung, moderate left pleural effusion; no evidence of recurrent disease. - October 15, 2016 CT Chest: Stable postoperative changes of left upper lobectomy. No evidence of recurrent lung carcinoma or metastatic disease. There is a large gastric hiatal hernia. - September 10, 2017 CT PET Scan: Interval development of multifocal areas of hypermetabolic metastatic disease; multiple hypermetabolic subcutaneous nodules within chest; interval development of hypermetabolic left neck base lymph node, right cardiophrenic angle lymph nodes; ill-defined curvilinear soft tissue anterior to left heart with new hypermetabolic activity; new osseous metastasis within proximal left humerus and multiple ribs; sclerosis within right cricoid cartilage with low level metabolic uptake; post surgical changes from left upper lobectomy. 10/01/2017, bone marrow biopsy and port placement with Dr. Hernandez indicating diffuse large B cell lymphoma. 10/11/2017, patient to start RVC P which may changed to R CHOP in the future after discussion with speech assistant, Dr. Chan regarding use of anthracycline. Medical History Family History: CLL (chronic lymphoid leukemia) BROTHER OR SISTER (CLL) FH: bladder cancer FATHER (95) Psychosocial History Social History Patient is . He is retired Alcohol History He denies abuse Smoking History: Yes Smoking Status: Former Smoker Exposure to Second Hand Smoke?: No Medications and Allergies Active Scripts Ondansetron (ZOFRAN ODT) 8 Mg Tab.rapdis, 8 MG PO Q8H for Nausea, #30 TAB 3 Refills Prov:KAY CLOUD ELECTRIC SWITCH TESTER-BC, ONC 10/11/17 Prednisone (PREDNISONE) 50 Mg Tablet, 100 MG PO QDAY for 5 Days, #10 TAB 7 Refills Prov:KAY CLOUD ELECTRIC SWITCH TESTER-BC, ONC 10/11/17 Hydrocodone Bit/Acetaminophen (NORCO 5-325 TABLET) 1 Each Tablet, 1 EACH PO Q4H Y for PAIN, #20 TAB Prov:BINU HERNANDEZ MD 10/01/17 Reported Medications Apixaban (ELIQUIS) 5 Mg Tablet, 5 MG PO 1-2XD 10/09/17 Metoprolol Succinate (METOPROLOL SUCCINATE) 50 Mg Tab.er.24h, 1 TAB PO QDAY for Blood Pressure, TAB 08/15/15 Diltiazem Hcl (CARTIA XT) 180 Mg Cap.er.24h, 1 CAP PO BID, #180 CAP 3 Refills 08/06/14 Doxazosin Mesylate (Cardura) 8 Mg Tablet, 8 MG PO DAILY, 0 Refills 05/21/11 Pravastatin Sodium (Pravachol) 10 Mg Tablet, 10 MG PO QDAY, 0 Refills 05/21/11 Hydrochlorothiazide (Hydrochlorothiazide) 50 Mg Tablet, 50 MG PO DAILY, 0 Refills 05/21/11 Discontinued Reported Medications Duloxetine Hcl (CYMBALTA) 30 Mg Capsule.dr, 30 MG PO QDAY, #5 CAP 08/28/17 Aspirin (ASPIR 81) 81 Mg Tablet.dr, 162 MG PO QDAY, TAB 10/23/16 Discontinued Scripts Lorazepam (ATIVAN) 0.5 Mg Tablet, 0.5 MG PO Q4-6H Y for NAUSEA for 14 Days, #30 TAB 0 Refills Prov:KAY CLOUD ELECTRIC SWITCH TESTER-BC, ONC 10/11/17 Prochlorperazine Maleate (Compazine) 10 Mg Tablet, 10 MG PO Q6-8H for Nausea, # 30 TAB 3 Refills Prov:KAY CLOUD ELECTRIC SWITCH TESTER-BC, ONC 10/11/17 Allergies: Coded Allergies: Iodinated Contrast Media - IV Dye (Verified Allergy, Mild, RASH, 06/17/15) Review of System/Physical Exam Review of Systems All Systems Reviewed/Normal: Yes, Except as Noted Hematologic: Positive for Fatigue, Positive for Weakness Neurologic: Numbness of Hands, Numbness of Feet, Other (numbness in the left arm and lower legs bilaterally) Psychiatric: Depression Physical Exam Vital Signs Temperature: 97.4 Pulse: 93 BP Systolic: 118 BP Diastolic: 75 Respiratory Rate: 16 O2 SAT: 95 O2 Delivery: Height (inches) 68.00 Weight lb: 169 Weight oz: Weight Kg (Bryant): Pain: 0 ECOG Score: 1 General: Stable, Well Developed, Well Nourished, Not In Acute Distress HEENT: No Trauma, No Conjunctivitis, No Oral Thrush Psychiatric: Mood appears normal, Affect appears normal Chemo Education Chemotherapy Education: Patient is seen today for education regarding chemotherapy with RVC P for his diffuse large B-cell lymphoma. The treatment schedule and associated appointments were discussed and reviewed. A print out will be given to the patient. The intent for treatment is unknown at this time due to patient's primary diagnosis of stage III lung cancer with the possibility of metastatic disease. Consent for treatment was completed prior to receiving treatment. Mechanism of action and associated side effects of chemotherapy with Rituxan, vincristine and Cytoxan and premedications were discussed. The patient is at increased risk for infection related to bone marrow suppression with chemotherapy. Signs and symptoms of infection were reviewed with recommendation of calling the clinic if fever, chills or a temperature of 100.5 or greater is experienced. Regular monitoring of blood work will be completed. The patient is at increased risk of nausea and vomiting related to chemotherapy. Home antiemetics were reviewed with a schedule of when to take them. Script (s) for Zofran and prednisone 100 mg given on days 1 through 5 with each cycle were called to [facility]. Patient refused Ativan and Compazine at this time. Increased bowel movements or diarrhea may occur. The use of [id number] antidiarrheal other then Imodium which patient reports that he cannot tolerate was reviewed and encouraged to have on hand. Dehydration from decreased intake, nausea or diarrhea could also occur. Side effects of dehydration were reviewed and hydration will be given as needed. Self-care strategies to minimize any symptoms from treatment were taught and written material was given for further review at home. The strategies included: dietary modifications for nausea, diarrhea, fatigue and/or mouth sores, exercise and resting for fatigue, hydration for dehydration, and skin care for dry skin reactions. In addition, safety measures for IV and oral chemotherapy to prevent teratogenic side effects to others was reviewed in detail to include good hand washing, double flushing, and what to do during sexual intercourse. Physical therapy evaluated patient and discussed plan of care. A consent was signed Diagnostic Studies Diagnostic Studies Laboratory Laboratory Tests 10/11/17 08:30 Laboratory Tests 10/11/17 08:30: White Blood Count 4.8, Hemoglobin 13.1, Hematocrit 38.0, Platelet Count 181, Neutrophils (%) (Auto) 71.9, Lymphocytes (%) (Auto) 10.7, Neutrophils # (Auto) 3.5, Lymphocytes # (Auto) 0.5, Sodium Level 136, Potassium Level 3.3, Chloride Level 98, Carbon Dioxide Level 28, Blood Urea Nitrogen 14, Creatinine 1.00, Glomerular Filtration Rate Calc > 60.0, Random Glucose 110, Uric Acid 4.3, Calcium Level 8.9, Phosphorus Level 2.9, Total Bilirubin 1.0, Aspartate Amino Transf (AST/SGOT) 28, Alanine Aminotransferase (ALT/SGPT) 39, Alkaline Phosphatase 162, Lactate Dehydrogenase 341, Total Protein 6.9, Albumin 3.5, Hepatitis B Surface Antigen Negative Assessment and Plan Assessment & Plan 1. Diffuse large B cell lymphoma. I Patient has discussed with Dr. Biggs his recent diagnosis of diffuse large B cell lymphoma, the nature of the malignancy, and the goals of treatment.He understands well that the cornerstone of therapy for diffuse large B cell lymphoma is chemotherapy, and the CT PET scan is indicative of multifocal extranodal disease. Patient will start cycle 1 of R VCP today. He will receive Neulasta using the on body injector 27 hours posttreatment. Side effects and management of side effects as well as consent were completed today. Patient verbalized understanding that he needs to take 100 mg of prednisone on days one through 5 with each treatment. 2. Stage III lung adenocarcinoma. He previously was scheduled to try crizotinib therapy on the assumption that his CT PET scan findings represented metastatic recurrence of his previously diagnosed lung adenocarcinoma, which does harbor a MET splice site variant. At this point, disease will be montiored and plan of care may change if he has increased disease rather than a response as expected with R-CVP. 3. Atrial flutter. Dr. Biggs will review treatment with Adriamycin with Cardiology and may add it to cycle 2 treatment for his B-cell lymphoma. He is currently tolerating anticoagulation well with Eliquis. His rate is normal. I spent a total of 40 minutes of [id number] time with Geovany today, and 35 minutes of this was spent in direct counseling and coordination of care, education and management of side effects with education. Zofran and prednisone were called in to [facility]. Patient refused Compazine and Ativan at this time. I spent a total of 40 minutes of time face to face with the patient today with over 50% of the time spent in direct counseling and coordination of care. KAY CLOUD ELECTRIC SWITCH TESTER-BC, ONC Oct 11, 2017 10:03
[2017-10-11 16:00] VITALS: BP 126/81
[2017-10-11] MEDS: PEGFILGRASTIM 6 MG/0.6 ML KIT SUBQ PRN (16:02)
[2017-10-17 09:23] VITALS: BP 148/98
[2017-10-17 09:44] LABS: PLATELET COUNT, AUTOMATED 88 K/uL (150-450)
[2017-10-24 09:10] VITALS: BP 113/85
[2017-10-24 09:13] LABS: PLATELET COUNT, AUTOMATED 122 K/uL (150-450)
[2017-10-30 09:32] VITALS: BP 140/79
--- NOTE | 2017-10-30 17:28 | ONCOLOGY FOLLOW UP NOTE ---
EVENT DATE: October 30, 2017 REASON FOR FOLLOWUP 1. Stage III adenocarcinoma of left lung, status post resection and sequential adjuvant chemotherapy and radiation. 2. Diffuse large B cell lymphoma, status post initiation of chemotherapy. INTERIM HISTORY Geovany returns to clinic for a follow-up visit today. He is accompanied by his . He has received his first cycle of chemotherapy for his diffuse large B cell lymphoma. He received R-CVP while cardiac considerations continued. He reports that the first cycle was generally horrible. Fatigue was rather profound for both the first and second week of chemotherapy. His peripheral neuropathy has worsened somewhat. He has had no significant nausea. His appetite has been good, although his eating habits have changed somewhat. He denies fever. He notes that the previously palpable cutaneous nodules are now gone. REVIEW OF SYSTEMS Positive for diffuse arthralgias, which also seemingly have worsened. Otherwise negative. All systems reviewed. ONCOLOGY HISTORY 1. 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 April 15, 2017, CT chest: No significant change from September 2016; previous left upper lobectomy without locally recurrent or measurable metastatic disease; small partially loculated left pleural effusion, moderate-sized hiatal hernia, moderate coronary artery and aortic valve calcification. * Stage IIIA (pT2a N2 M0) adenocarcinoma of the left upper lobe, status post left upper lobectomy with mediastinal sampling. A MET splice site variant is present (exon 14) * Medical Oncologist: Dr. Kelly. * Radiation Oncologist: Dr. Shaikh. * Cardiothoracic Surgeon: Dr. Zavala. * Fur Designer: Dr. Carballo. - April 03, 2015 CT Chest: Left upper lobe mass abutting left superior mediastinum and upper left hilum with mildly prominent left hilar lymph nodes, borderline prominent mediastinal lymph nodes. - April 20, 2015: Bronchoscopy. Pathology: Subcarinal lymph node negative, hilar lymph node negative, left upper lobe brushing consistent with adenocarcinoma, left upper lobe needle aspirate consistent with adenocarcinoma. - April 25, 2015 CT-PET: Spiculated mass of the medial left upper lobe measuring 3 x 4.6 cm, SUV = 21.4. Left suprahilar lymph node with an SUV of 9.6 , but no hypermetabolic mediastinal lymphadenopathy and no evidence of metastatic disease. - May 11, 2015: Left upper lobectomy with mediastinal sampling complicated by pneumothorax. 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 Perineural invasion was present, however. One peribronchial lymph node was positive and one AP window lymph node was positive (2 of 20 lymph nodes total). Surgical stage: pT2a pN0 cM0. Molecular profiling: ALK, EGFR, BRAF, and HER2/dayne are negative. The sample was positive for a KRAS mutation as well as a MET splice site variant (exon 14). - July 18, 2015: Initiation of adjuvant carboplatin/paclitaxel with plan for two cycles, followed by adjuvant radiation therapy. All treatment was complete in September 2015. - January 02, 2016 CT-PET: Interval left lobectomy, moderate left pleural effusion ; no evidence of residual or metastatic glucose-active disease; minimal ascites. - April 13, 2016 CT Chest: Postop changes to the left lung, moderate left pleural effusion; no evidence of recurrent disease. - October 15, 2016 CT Chest: Stable postoperative changes of left upper lobectomy. No evidence of recurrent lung carcinoma or metastatic disease. There is a large gastric hiatal hernia. - September 10, 2017 CT PET Scan: Interval development of multifocal areas of hypermetabolic metastatic disease; multiple hypermetabolic subcutaneous nodules within chest; interval development of hypermetabolic left neck base lymph node, right cardiophrenic angle lymph nodes; ill-defined curvilinear soft tissue anterior to left heart with new hypermetabolic activity; new osseous metastasis within proximal left humerus and multiple ribs; sclerosis within right cricoid cartilage with low level metabolic uptake; post surgical changes from left upper lobectomy. 2. Diffuse large B cell lymphoma. - Diagnosis made by way of biopsy of subcutaneous nodule that had presented on follow-up imaging for surveillance of his lung cancer. - Status post bone marrow biopsy that shows no involvement of diffuse large B cell lymphoma. - September 2015: Initiation of chemotherapy with R-CVP, potential future plans for R-CHOP, based on cardiac input. PAST MEDICAL HISTORY 1. Hyperlipidemia. 2. Hypertension. 3. History of paroxysmal atrial fibrillation. 4. Gastroesophageal reflux disease with hiatal hernia. 5. History of reflux esophagitis. 6. History of renal insufficiency. 7. BPH. 8. Stage 3 chronic kidney disease. 9. History of nocturia. CURRENT MEDICATIONS 1. Cymbalta (patient recently discontinued due to fatigue). 2. Metoprolol. 3. Diltiazem. 4. Cardura. 5. Pravastatin. 6. Hydrochlorothiazide. 7. Eliquis. 8. Prednisone as part of his chemotherapy regimen. 9. Apixaban. ALLERGIES IV CONTRAST DYE, which reportedly causes rash. VITAL SIGNS Temperature 96.4, blood pressure 140/79, heart rate is 88, respirations 86, oxygen saturation is 93% on room air. Weight is 76.9 kg. PHYSICAL EXAMINATION GENERAL: Patient is alert and oriented times three, in no apparent distress, sitting in the exam room chair. Affect is somewhat flat, but he is pleasant and interactive. HEENT: Exam reveals anicteric sclerae. NEUROLOGIC: Exam is grossly nonfocal and his gait is normal. EXTREMITIES: Exam reveals no edema, clubbing or cyanosis. SKIN: Exam reveals no concerning rash or lesions. LABORATORY STUDIES Reviewed per the Wardrobe Housekeeper record. ASSESSMENT AND PLAN 1. Diffuse large B cell lymphoma. Geovany has received his first cycle of chemotherapy (R-CVP). He initially had stated that the experience was horrible , but with further discussion today, it did seem that his tolerance of chemotherapy was reasonable. Fatigue is going to be a problem for him, which we discussed today. His peripheral neuropathy has worsened a bit, as well. We spent a great deal of time today discussing his oncologic history, including his lung cancer, the surprise diagnosis of diffuse large B cell lymphoma, and decisions made since then. We have gotten cardiac clearance for the use of adriamycin, if we choose to do so. We also discussed this in detail today. Geovany , despite his reported experience with his first cycle, is very much in favor of adding the adriamycin. As such, we will move forward with R-CHOP, but his dose of adriamycin will be reduced 50%. Also, given his worsening peripheral neuropathy, we will take his vincristine dose down by 20%. He will continue to have close followup here. I will plan to see him during my next trip to [facility]. 2. Stage IIIA Lung Adenocarcinoma. There is no definitive evidence of recurrence of lung cancer at this time. We will evaluate his upcoming reimaging in the context of his known risk for lung cancer recurrence. I spent a total of 30 minutes of [id number] time with the patient and his today. Twenty-five minutes of this was spent in direct counseling and coordination of care. TORI
[2017-10-31 09:46] VITALS: BP 126/88
[2017-10-31] MEDS: ACETAMINOPHEN 325 MG TAB PO PRN (10:33)
[2017-10-31] MEDS: PALONOSETRON 0.25 MG/5 ML VIAL IVP PRN (10:33)
[2017-10-31] MEDS: diphenhydrAMINE 50 MG/ML VIAL IVP PRN (10:34)
--- NOTE | 2017-10-31 10:48 | ONC Progress Note - NP.Halsey ---
Patient History Date of Service Oct 31, 2017 Reason For Visit/HPI Patient is seen in the clinic today for follow-up prior to starting cycle 2 of chemotherapy with R CHOP. His dose of Adriamycin was decreased by 50% and due to worsening of his peripheral neuropathy to vincristine was decreased by 20%. Patient followed with Dr. Kelly yesterday to discuss plan of care and the addition of Adriamycin to his regimen. He reports that overall he is feeling relatively well and feels like he has recovered from cycle 1 to at least 80% recovery. Patient does report that he has continued pain in his pelvis and discomfort in his left scapular area status post lobectomy approximately 2 years ago. He is following with physical therapy. Patient reports that he has been taken ibuprofen 2-3 tablets 1-2 times a day for pain and discomfort. He was reminded that ibuprofen is not recommended while he is on eliquis. I have recommended that we try tramadol because he is not interested in a narcotic pain med at this time. Status post Neulasta he does report having difficulty sleeping due to bone aches. Patient also had insomnia related to oral prednisone that he takes on days 1 through 5 with treatment. He is not willing to take Ativan or any sleep agent at this time. He does report that the previous palpable cutaneous nodules are no longer palpable. We did discuss the addition of Adriamycin and a new consent was signed today. Review of the chemotherapy regimen was completed today. Patient has not taken his oral prednisone so he will receive a prescription from the hospital pharmacy for today's dose. Problem List (1) Peripheral neuropathy (2) Adenocarcinoma of left lung (3) Lymphoma (4) Hypertension (5) Hypercholesteremia (6) Fatigue (7) S/P lobectomy of lung Oncology History 1. 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 April 15, 2017, CT chest: No significant change from September 2016; previous left upper lobectomy without locally recurrent or measurable metastatic disease; small partially loculated left pleural effusion, moderate-sized hiatal hernia, moderate coronary artery and aortic valve calcification. Stage IIIA (pT2a N2 M0) adenocarcinoma of the left upper lobe, status post left upper lobectomy with mediastinal sampling. A MET splice site variant is present (exon 14) Medical Oncologist: Dr. Kelly. Radiation Oncologist: Dr. Shaikh. Cardiothoracic Surgeon: Dr. Zavala. Funeral Greeter: Dr. Carballo. - April 03, 2015 CT Chest: Left upper lobe mass abutting left superior mediastinum and upper left hilum with mildly prominent left hilar lymph nodes, borderline prominent mediastinal lymph nodes. - April 20, 2015: Bronchoscopy. Pathology: Subcarinal lymph node negative, hilar lymph node negative, left upper lobe brushing consistent with adenocarcinoma, left upper lobe needle aspirate consistent with adenocarcinoma. - April 25, 2015 CT-PET: Spiculated mass of the medial left upper lobe measuring 3 x 4.6 cm, SUV = 21.4. Left suprahilar lymph node with an SUV of 9.6 , but no hypermetabolic mediastinal lymphadenopathy and no evidence of metastatic disease. - May 11, 2015: Left upper lobectomy with mediastinal sampling complicated by pneumothorax. 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 Perineural invasion was present, however. One peribronchial lymph node was positive and one AP window lymph node was positive (2 of 20 lymph nodes total). Surgical stage: pT2a pN0 cM0. Molecular profiling: ALK, EGFR, BRAF, and HER2/dayne are negative. The sample was positive for a KRAS mutation as well as a MET splice site variant (exon 14). - July 18, 2015: Initiation of adjuvant carboplatin/paclitaxel with plan for two cycles, followed by adjuvant radiation therapy. All treatment was complete in September 2015. - January 02, 2016 CT-PET: Interval left lobectomy, moderate left pleural effusion ; no evidence of residual or metastatic glucose-active disease; minimal ascites. - April 13, 2016 CT Chest: Postop changes to the left lung, moderate left pleural effusion; no evidence of recurrent disease. - October 15, 2016 CT Chest: Stable postoperative changes of left upper lobectomy. No evidence of recurrent lung carcinoma or metastatic disease. There is a large gastric hiatal hernia. - September 10, 2017 CT PET Scan: Interval development of multifocal areas of hypermetabolic metastatic disease; multiple hypermetabolic subcutaneous nodules within chest; interval development of hypermetabolic left neck base lymph node, right cardiophrenic angle lymph nodes; ill-defined curvilinear soft tissue anterior to left heart with new hypermetabolic activity; new osseous metastasis within proximal left humerus and multiple ribs; sclerosis within right cricoid cartilage with low level metabolic uptake; post surgical changes from left upper lobectomy. 2. Diffuse large B cell lymphoma. - Diagnosis made by way of biopsy of subcutaneous nodule that had presented on follow-up imaging for surveillance of his lung cancer. - Status post bone marrow biopsy that shows no involvement of diffuse large B cell lymphoma. - September 2015: Initiation of chemotherapy with R-CVP, potential future plans for R-CHOP, based on cardiac input. -10/31/2017 R CHOP initiated, Adriamycin 50% dose reduction, vincristine 20% dose reduction. She is scheduled for 5 total cycles. Medical History Family History: CLL (chronic lymphoid leukemia) BROTHER OR SISTER (CLL) FH: bladder cancer FATHER (95) Psychosocial History Social History Patient is . He is retired Alcohol History He denies abuse Smoking History: Yes Smoking Status: Former Smoker Exposure to Second Hand Smoke?: No Medications and Allergies Active Scripts Prednisone (PREDNISONE) 50 Mg Tablet, 100 MG PO QDAY for 5 Days, #30 TAB 1 Refill Prov:KAY CLOUD TIN FLOPPER-BC, ONC 10/31/17 Reported Medications Apixaban (ELIQUIS) 5 Mg Tablet, 5 MG PO 1-2XD 10/09/17 Metoprolol Succinate (METOPROLOL SUCCINATE) 50 Mg Tab.er.24h, 1 TAB PO QDAY for Blood Pressure, TAB 08/15/15 Diltiazem Hcl (CARTIA XT) 180 Mg Cap.er.24h, 1 CAP PO BID, #180 CAP 3 Refills 08/06/14 Doxazosin Mesylate (Cardura) 8 Mg Tablet, 8 MG PO DAILY, 0 Refills 05/21/11 Pravastatin Sodium (Pravachol) 10 Mg Tablet, 10 MG PO QDAY, 0 Refills 05/21/11 Hydrochlorothiazide (Hydrochlorothiazide) 50 Mg Tablet, 50 MG PO DAILY, 0 Refills 05/21/11 Discontinued Scripts Ondansetron (ZOFRAN ODT) 8 Mg Tab.rapdis, 8 MG PO Q8H for Nausea, #30 TAB 3 Refills Prov:KAY CLOUD TIN FLOPPER-BC, ONC 10/11/17 Hydrocodone Bit/Acetaminophen (NORCO 5-325 TABLET) 1 Each Tablet, 1 EACH PO Q4H Y for PAIN, #20 TAB Prov:BINU OROPEZA MD 10/01/17 Allergies: Coded Allergies: Iodinated Contrast Media - IV Dye (Verified Allergy, Mild, RASH, 06/17/15) Review of System/Physical Exam Review of Systems All Systems Reviewed/Normal: Yes, Except as Noted HEENT: Hearing Problems (patient wears hearing aids) Hematologic: Positive for Fatigue, Positive for Weakness Musculoskeletal: Positive for Muscle Pain, Positive for Bone Pain Neurologic: Numbness of Hands Psychiatric: Other (patient is alone today) Physical Exam Vital Signs Temperature: 97.0 Pulse: 83 BP Systolic: 126 BP Diastolic: 88 Respiratory Rate: 16 O2 SAT: 96 O2 Delivery: Height (inches) 68.00 Weight lb: 169 Weight oz: Weight Kg (Bryant): Pain: 0 General: Stable, Well Developed, Well Nourished, Not In Acute Distress HEENT: No Trauma, No Conjunctivitis, No Icterus, No Mucositis, No Oral Thrush Neck: Supple Lungs: Clear to Auscultation Heart: Irregular Rate, Irregular Rhythm Abdomen: Soft and Nontender, No Hepatosplenomegaly, No Masses, Other (bowel sounds are active) Lymphadenopathy: No Cervical Psychiatric: Mood appears normal, Affect appears normal Skin: No Skin Rashes, No Bruising, No Purpura Diagnostic Studies Diagnostic Studies Laboratory Laboratory Tests 10/31/17 09:21 Laboratory Tests 10/11/17 08:30: Phosphorus Level 2.9, Hepatitis B Surface Antigen Negative, Hepatitis B Core Total Antibody Negative 10/24/17 09:04: Red Blood Count 4.51, Mean Corpuscular Volume 90.8, Mean Corpuscular Hemoglobin 30.8, Mean Corpuscular Hemoglobin Concent 33.9, Red Cell Distribution Width 14.2 , Mean Platelet Volume 8.5, Monocytes (%) (Auto) , Eosinophils (%) (Auto) , Basophils (%) (Auto) , Nucleated RBC Relative Count (auto) , Monocytes # (Auto) , Eosinophils # (Auto) , Basophils # (Auto) , Nucleated RBC Absolute Count (auto ) , Neutrophils % (Manual) 52, Band Neutrophils % 35, Lymphocytes % (Manual) 8, Monocytes % (Manual) 5, Eosinophils % (Manual) 0, Basophils % (Manual) 0, Peripheral Blood Smear Yes 10/31/17 09:21: White Blood Count 6.9, Hemoglobin 12.6, Hematocrit 36.5, Platelet Count 200, Neutrophils (%) (Auto) 81.7, Lymphocytes (%) (Auto) 6.0, Neutrophils # (Auto) 5.7, Lymphocytes # (Auto) 0.4, Sodium Level 132, Potassium Level 3.4, Chloride Level 95, Carbon Dioxide Level 26, Blood Urea Nitrogen 16, Creatinine 1.00, Glomerular Filtration Rate Calc > 60.0, Random Glucose 141, Uric Acid 5.0, Calcium Level 8.9, Total Bilirubin 0.8, Aspartate Amino Transf (AST/SGOT) 30, Alanine Aminotransferase (ALT/SGPT) 41, Alkaline Phosphatase 161, Lactate Dehydrogenase 335, Total Protein 6.8, Albumin 3.4 Assessment and Plan Assessment & Plan 1. Diffuse large B cell lymphoma. Patient received his 1st cycle of chemotherapy (R-CVP) with fairly reasonable tolerance and expected side effects. Patient has recovered approximately 80% on today's exam. Patient had increased fatigue and neuropathy which will probably be continued throughout his treatment. Patient completed cardiac clearance for Adriamycin. This was added to his regimen and he will complete cycle one today. Dose is decreased by 50% as well as vincristine decreased by 20%. Education regarding side effects were reviewed with patient today and written information was given to him to review. A new consent was signed. We will continue close follow-up and possibly repeat an echocardiogram if indicated. -Patient had insomnia probably related to the oral prednisone on days 1 through 5 posttreatment. At this time he is not interested in Ativan or any sleep agent. -Patient experienced bone ache probably related to Neulasta after his 1st treatment. Patient has been taking ibuprofen which was reviewed with him today has been contraindicated with Eliquis. Patient is not interested in a pain medication such as hydrocodone but is willing to try tramadol. I will send a prescription in to his pharmacy. Side effects were reviewed with patient especially to watch for constipation. Patient verbalized understanding. -He is currently receiving physical therapy for his discomfort in his left shoulder and pelvis area on the right. He seems to be very happy with the services and the thought that they can help decrease his fatigue. We will continue. I spent a total of 30 minutes of time face to face with the patient today with over 50% of the time spent in direct counseling and coordination of care. KAY CLOUD TIN FLOPPER-BC, ONC Oct 31, 2017 10:48
[2017-10-31] MEDS: FOSAPREPITANT DIM 150 MG/5 ML 150 MG in NS(*) 0.9% 250 ML BAG 245 ML IVPB PRN (11:08)
[2017-10-31] MEDS: PEGFILGRASTIM 6 MG/0.6 ML KIT SUBQ PRN (15:45)
[2017-11-06 09:21] VITALS: BP 112/74
[2017-11-06 09:32] LABS: PLATELET COUNT, AUTOMATED 52 K/uL (150-450)
--- NOTE | 2017-11-06 11:13 | ONC Progress Note - NP.Halsey ---
Patient History Date of Service Nov 06, 2017 Reason For Visit/HPI Patient is seen in follow-up one week post cycle 2 of chemotherapy with R CHOP. Adriamycin was added to this cycle at a 50% dose reduction and due to peripheral neuropathy from cycle one vincristine was decreased by 20%. Patient reports today that he has had increased restlessness to the legs out to be produced by the prednisone that he takes post-each cycle. This causes decreased sleep. He feels that this is resolving. Patient has had postnasal discharge with blood noted. Patient reports that his eyes have a change in vision but he denies blurring or burning. Patient has a cough that is dry and nonproductive but reports that it is resolving today. He shares that his heart rate has increased and he feels more palpitations in his chest. Patient has a history of atrial fib and is currently on Eliquis for management. Patient had no nausea or vomiting. He has been taking stool softeners and vegetable laxatives to prevent constipation. This is worked well however he is having some rectal bleeding with each stool thought to be caused by irritation from increased stool amount. Patient continues to have muscle pain and joint pain. He has avoided ibuprofen until last night he took 600 mg prior to bedtime because both hips were hurting significantly. He did have Neulasta and believes that this is caused from the injection. We have had that discussion regarding avoiding ibuprofen with this current to coagulation therapy. He was prescribed Tramadol and has refused to take it due to the possible side effects that it could cause. He is not interested in any type of narcotic. He does not like to use Tylenol. He feels that he has more neuropathy in his legs than he experienced with this 1st cycle. His fatigue is increased with this 2nd cycle and he does not feel that he recovered from the 1st cycle back to his baseline. Problem List (1) TYPICAL ATRIAL FLUTTER (2) Adenocarcinoma of left lung (3) History of lung cancer (4) Peripheral neuropathy (5) Hypertension (6) Hypercholesteremia (7) Fatigue Oncology History 1. 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 April 15, 2017, CT chest: No significant change from September 2016; previous left upper lobectomy without locally recurrent or measurable metastatic disease; small partially loculated left pleural effusion, moderate-sized hiatal hernia, moderate coronary artery and aortic valve calcification. Stage IIIA (pT2a N2 M0) adenocarcinoma of the left upper lobe, status post left upper lobectomy with mediastinal sampling. A MET splice site variant is present (exon 14) Medical Oncologist: Dr. Tellez. Radiation Oncologist: Dr. Shaikh. Cardiothoracic Surgeon: Dr. Zavala. Python Django Developer: Dr. Carballo. - April 03, 2015 CT Chest: Left upper lobe mass abutting left superior mediastinum and upper left hilum with mildly prominent left hilar lymph nodes, borderline prominent mediastinal lymph nodes. - April 20, 2015: Bronchoscopy. Pathology: Subcarinal lymph node negative, hilar lymph node negative, left upper lobe brushing consistent with adenocarcinoma, left upper lobe needle aspirate consistent with adenocarcinoma. - April 25, 2015 CT-PET: Spiculated mass of the medial left upper lobe measuring 3 x 4.6 cm, SUV = 21.4. Left suprahilar lymph node with an SUV of 9.6 , but no hypermetabolic mediastinal lymphadenopathy and no evidence of metastatic disease. - May 11, 2015: Left upper lobectomy with mediastinal sampling complicated by pneumothorax. 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 Perineural invasion was present, however. One peribronchial lymph node was positive and one AP window lymph node was positive (2 of 20 lymph nodes total). Surgical stage: pT2a pN0 cM0. Molecular profiling: ALK, EGFR, BRAF, and HER2/dayne are negative. The sample was positive for a KRAS mutation as well as a MET splice site variant (exon 14). - July 18, 2015: Initiation of adjuvant carboplatin/paclitaxel with plan for two cycles, followed by adjuvant radiation therapy. All treatment was complete in September 2015. - January 02, 2016 CT-PET: Interval left lobectomy, moderate left pleural effusion ; no evidence of residual or metastatic glucose-active disease; minimal ascites. - April 13, 2016 CT Chest: Postop changes to the left lung, moderate left pleural effusion; no evidence of recurrent disease. - October 15, 2016 CT Chest: Stable postoperative changes of left upper lobectomy. No evidence of recurrent lung carcinoma or metastatic disease. There is a large gastric hiatal hernia. - September 10, 2017 CT PET Scan: Interval development of multifocal areas of hypermetabolic metastatic disease; multiple hypermetabolic subcutaneous nodules within chest; interval development of hypermetabolic left neck base lymph node, right cardiophrenic angle lymph nodes; ill-defined curvilinear soft tissue anterior to left heart with new hypermetabolic activity; new osseous metastasis within proximal left humerus and multiple ribs; sclerosis within right cricoid cartilage with low level metabolic uptake; post surgical changes from left upper lobectomy. 2. Diffuse large B cell lymphoma. - Diagnosis made by way of biopsy of subcutaneous nodule that had presented on follow-up imaging for surveillance of his lung cancer. - Status post bone marrow biopsy that shows no involvement of diffuse large B cell lymphoma. - September 2015: Initiation of chemotherapy with R-CVP x 1 cycle. -10/31/2017 R CHOP initiated, Adriamycin 50% dose reduction, vincristine 20% dose reduction. He is scheduled for 5 total cycles. Patient experienced increased heart rate and fatigue. Echocardiogram for left ventricular ejection fraction was scheduled. Medical History Family History: CLL (chronic lymphoid leukemia) BROTHER OR SISTER (CLL) FH: bladder cancer FATHER (95) Psychosocial History Social History Patient is . He is retired Alcohol History He denies abuse Smoking History: Yes Smoking Status: Former Smoker Exposure to Second Hand Smoke?: No Medications and Allergies Active Scripts Prednisone (PREDNISONE) 50 Mg Tablet, 100 MG PO QDAY for 5 Days, #30 TAB 1 Refill Prov:KAY CLOUD SOFTWARE TEST AUTOMATION ENGINEER-BC, ONC 10/31/17 Reported Medications Apixaban (ELIQUIS) 5 Mg Tablet, 5 MG PO 1-2XD 10/09/17 Metoprolol Succinate (METOPROLOL SUCCINATE) 50 Mg Tab.er.24h, 1 TAB PO QDAY for Blood Pressure, TAB 08/15/15 Diltiazem Hcl (CARTIA XT) 180 Mg Cap.er.24h, 1 CAP PO BID, #180 CAP 3 Refills 08/06/14 Doxazosin Mesylate (Cardura) 8 Mg Tablet, 8 MG PO DAILY, 0 Refills 05/21/11 Pravastatin Sodium (Pravachol) 10 Mg Tablet, 10 MG PO QDAY, 0 Refills 05/21/11 Hydrochlorothiazide (Hydrochlorothiazide) 50 Mg Tablet, 50 MG PO DAILY, 0 Refills 05/21/11 Discontinued Scripts Tramadol Hcl (TRAMADOL HCL) 50 Mg Tablet, 50-100 MG PO Q4-6H, #30 TAB 2 Refills Prov:KAY CLOUD, ONC 10/31/17 Ondansetron (ZOFRAN ODT) 8 Mg Tab.rapdis, 8 MG PO Q8H for Nausea, #30 TAB 3 Refills Prov:KAY CLOUDBC, ONC 10/11/17 Hydrocodone Bit/Acetaminophen (NORCO 5-325 TABLET) 1 Each Tablet, 1 EACH PO Q4H Y for PAIN, #20 TAB Prov:BINU OROPEZA MD 10/01/17 Allergies: Coded Allergies: Iodinated Contrast Media - IV Dye (Verified Allergy, Mild, RASH, 06/17/15) Review of System/Physical Exam Review of Systems All Systems Reviewed/Normal: Yes, Except as Noted Cardiovascular: Positive for Palpitations Respiratory: Positive for Cough, Positive for Shortness of Breath Gastrointestinal: Diarrhea, Constipation Hematologic: Positive for Fatigue, Positive for Weakness Musculoskeletal: Positive for Muscle Pain, Positive for Joint Pain, Positive for Bone Pain Psychiatric: Depression Physical Exam Vital Signs Temperature: 97.1 Pulse: 100 BP Systolic: 112 BP Diastolic: 74 Respiratory Rate: 18 O2 SAT: 93 O2 Delivery: Height (inches) 68.00 Weight lb: 169 Weight oz: Weight Kg (Bryant): Pain: 4 ECOG Score: 1 General: Stable, Well Developed, Well Nourished, Not In Acute Distress HEENT: No Trauma, No Conjunctivitis, No Icterus, No Mucositis, No Oral Thrush Neck: Supple Lungs: Clear to Auscultation Heart: Irregular Rate, Irregular Rhythm Abdomen: Soft and Nontender, No Hepatosplenomegaly Extremities: No Cyanosis, No Clubbing, No Edema Lymphadenopathy: No Cervical Psychiatric: Mood appears normal, Affect appears normal Skin: No Skin Rashes, No Bruising, No Purpura Diagnostic Studies Diagnostic Studies Laboratory Laboratory Tests 11/06/17 09:15 Laboratory Tests 10/11/17 08:30: Phosphorus Level 2.9, Hepatitis B Surface Antigen Negative, Hepatitis B Core Total Antibody Negative 10/24/17 09:04: Neutrophils % (Manual) 52, Band Neutrophils % 35, Lymphocytes % (Manual) 8, Monocytes % (Manual) 5, Eosinophils % (Manual) 0, Basophils % (Manual) 0, Peripheral Blood Smear Yes 10/31/17 09:21: Uric Acid 5.0, Lactate Dehydrogenase 335 11/06/17 09:15: White Blood Count 6.7, Red Blood Count 3.85, Hemoglobin 12.1, Hematocrit 35.6, Mean Corpuscular Volume 92.4, Mean Corpuscular Hemoglobin 31.4, Mean Corpuscular Hemoglobin Concent 34.0, Red Cell Distribution Width 15.3, Platelet Count 52, Mean Platelet Volume 9.7, Neutrophils (%) (Auto) 89.6, Lymphocytes (% ) (Auto) 3.6, Monocytes (%) (Auto) 6.1, Eosinophils (%) (Auto) 0.5, Basophils (% ) (Auto) 0.2, Nucleated RBC Relative Count (auto) 0.0, Neutrophils # (Auto) 6.0 , Lymphocytes # (Auto) 0.2, Monocytes # (Auto) 0.4, Eosinophils # (Auto) 0.0, Basophils # (Auto) 0.0, Nucleated RBC Absolute Count (auto) 0.00, Sodium Level 133, Potassium Level 3.5, Chloride Level 94, Carbon Dioxide Level 30, Blood Urea Nitrogen 27, Creatinine 1.00, Glomerular Filtration Rate Calc > 60.0, Random Glucose 104, Calcium Level 8.7, Total Bilirubin 1.1, Aspartate Amino Transf (AST/SGOT) 27, Alanine Aminotransferase (ALT/SGPT) 55, Alkaline Phosphatase 149, Total Protein 6.0, Albumin 3.0 Assessment and Plan Assessment & Plan 1. Diffuse large B cell lymphoma. Patient received his 1st cycle of chemotherapy (R-CVP) with fairly reasonable tolerance and expected side effects. Patient has recovered approximately 80% Post cycle 2 with Adriamycin at a 50% dose reduction in vincristine at a 20% dose reduction, patient reports increased fatigue, cough, increased atrial fib with palpitations and generalized cardiac changes that patient reports he feels, loose stools related to stool softeners for prevention of constipation, bone pain related to Neulasta , increased neuropathy in the legs bilaterally, and generally not feeling well. 2. Thrombocytopenia. Patient's platelet level is currently at 52,000. I had a long discussion regarding if his platelets drop below 50,000 that I would hold Eliquis until platelet recovery above 50,000. In addition it is recommended the patient does not take ibuprofen. He verbalized understanding however this does not mean that he will be compliant. I shared the risks of any trauma to the head increasing a brain bleed. I will repeat a CBC this Steve and if platelet level is below 50,000 patient is instructed to hold Eliquis and labs will be repeated on Saturday and if above 50,000 he can restart the medication. Patient agrees with this plan of care. 3. Increased cardiac symptoms with elevated pulse rate and palpitations. I will repeat a 2-D echocardiogram for left ventricular ejection fraction this Saturday. If there are changes it may be most appropriate to discontinue Adriamycin. 4. Patient has a previous history of lung cancer with known lung nodules. Patient reports a decreased trust in Dr. Tellez at this time related to his treatment and in regards to our the lung nodules a lymphoma or recurrent cancer of the lung. It has been explained to the patient previously by Dr. Tellez and myself that without a biopsy of those lung nodules it is unknown at this time. The plan of care was to treat the B-cell lymphoma and rescan to see if patient is responding. If these lung nodules decrease in size then it is most evident that they are related to lymphoma. If the lung nodules increase in size then it is more probable that they are recurrent lung cancer. This was explained to patient again today. I would like to repeat either a CT scan or a PET scan for evaluation of patient's disease given the fact that he is having significant side effects with current treatment. I have placed a phone call out to Dr. Tellez to ask for his expertise and recommendation of when he would like to repeat a scan. We could do one prior to cycle 3 or we could do it post cycle 3. I have explained this to the patient, he verbalizes understanding and believes that I am an advocate for his healthcare. 5. Bone pain related to Neulasta. Patient took ibuprofen 600 mg last night with relief. He refuses to use tramadol or any narcotic. He refuses to use Tylenol. Risks of concurrent ibuprofen with Eliquis was again reviewed today. Patient has decreased his dose of ibuprofen since our last conversation. 6. Patient continues to receive physical therapy but reports that today he does not feel well and will not go to his appointment. Plan: Repeat CBC this Saturday for evaluation of platelet level and management of eliquis Echocardiogram for left ventricular ejection fraction to determine appropriate agents for cycle 3 of treatment Phone call to Dr. Tellez regarding when to repeat CT scan or PET scan for evaluation of disease process. Patient would like to have his scans completed in [facility]. I spent a total of 40 minutes of time face to face with the patient today with over 50% of the time spent in direct counseling and coordination of care. Copies to: DURGA TELLEZ MD,KAY Gonzalez SOFTWARE TEST AUTOMATION ENGINEER-BC, ONC Nov 06, 2017 11:12
[2017-11-08 14:04] VITALS: BP 125/73
[2017-11-13 12:43] LABS: PLATELET COUNT, AUTOMATED 172 K/uL (150-450)
[2017-11-13 13:17] VITALS: BP 102/57
--- NOTE | 2017-11-13 22:01 | ONCOLOGY FOLLOW UP NOTE ---
EVENT DATE: November 13, 2017 REASON FOR FOLLOWUP 1. Stage III adenocarcinoma of left lung, status post resection and sequential adjuvant chemotherapy and radiation. 2. Diffuse large B cell lymphoma, status post initiation of chemotherapy. INTERIM HISTORY Geovany is seen today in the [facility], accompanied by his . He has now received two cycles of chemotherapy for his diffuse large B cell lymphoma. The first cycle was R-CVP, and the second cycle was R-CHOP, after clearance from Cardiology. Geovany reports that his second cycle was expectedly a bit more difficult than his first to tolerate. He has difficulty today reiterating why it was more difficult. He did have a bit more fatigue, but his pain complaints have lessened. He reports no fever. His appetite has been fair. Nausea has been controlled. He remains in general frustrated with his situation, and his overall lack of well-being. He has had ongoing peripheral neuropathy that he thinks may be getting a bit worse, but it has been tolerable. REVIEW OF SYSTEMS Otherwise negative, and all systems were reviewed. ONCOLOGY HISTORY 1. 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 April 15, 2017, CT chest: No significant change from September 2016; previous left upper lobectomy without locally recurrent or measurable metastatic disease; small partially loculated left pleural effusion, moderate-sized hiatal hernia, moderate coronary artery and aortic valve calcification. * Stage IIIA (pT2a N2 M0) adenocarcinoma of the left upper lobe, status post left upper lobectomy with mediastinal sampling. A MET splice site variant is present (exon 14) * Medical Oncologist: Dr. Kelly. * Radiation Oncologist: Dr. Shaikh. * Cardiothoracic Surgeon: Dr. Zavala. * Medical Research Associate: Dr. Carballo. - April 03, 2015 CT Chest: Left upper lobe mass abutting left superior mediastinum and upper left hilum with mildly prominent left hilar lymph nodes, borderline prominent mediastinal lymph nodes. - April 20, 2015: Bronchoscopy. Pathology: Subcarinal lymph node negative, hilar lymph node negative, left upper lobe brushing consistent with adenocarcinoma, left upper lobe needle aspirate consistent with adenocarcinoma. - April 25, 2015 CT-PET: Spiculated mass of the medial left upper lobe measuring 3 x 4.6 cm, SUV = 21.4. Left suprahilar lymph node with an SUV of 9.6 , but no hypermetabolic mediastinal lymphadenopathy and no evidence of metastatic disease. - May 11, 2015: Left upper lobectomy with mediastinal sampling complicated by pneumothorax. 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 Perineural invasion was present, however. One peribronchial lymph node was positive and one AP window lymph node was positive (2 of 20 lymph nodes total). Surgical stage: pT2a pN0 cM0. Molecular profiling: ALK, EGFR, BRAF, and HER2/dayne are negative. The sample was positive for a KRAS mutation as well as a MET splice site variant (exon 14). - July 18, 2015: Initiation of adjuvant carboplatin/paclitaxel with plan for two cycles, followed by adjuvant radiation therapy. All treatment was complete in September 2015. - January 02, 2016 CT-PET: Interval left lobectomy, moderate left pleural effusion ; no evidence of residual or metastatic glucose-active disease; minimal ascites. - April 13, 2016 CT Chest: Postop changes to the left lung, moderate left pleural effusion; no evidence of recurrent disease. - October 15, 2016 CT Chest: Stable postoperative changes of left upper lobectomy. No evidence of recurrent lung carcinoma or metastatic disease. There is a large gastric hiatal hernia. - September 10, 2017 CT PET Scan: Interval development of multifocal areas of hypermetabolic metastatic disease; multiple hypermetabolic subcutaneous nodules within chest; interval development of hypermetabolic left neck base lymph node, right cardiophrenic angle lymph nodes; ill-defined curvilinear soft tissue anterior to left heart with new hypermetabolic activity; new osseous metastasis within proximal left humerus and multiple ribs; sclerosis within right cricoid cartilage with low level metabolic uptake; post surgical changes from left upper lobectomy. 2. Diffuse large B cell lymphoma. - Diagnosis made by way of biopsy of subcutaneous nodule that had presented on follow-up imaging for surveillance of his lung cancer. - Status post bone marrow biopsy that shows no involvement of diffuse large B cell lymphoma. - September 2015: Initiation of chemotherapy with R-CVP for cycle one. Cycle two, R-CHOP, has now been administered. PAST MEDICAL HISTORY 1. Hyperlipidemia. 2. Hypertension. 3. History of paroxysmal atrial fibrillation. 4. Gastroesophageal reflux disease with hiatal hernia. 5. History of reflux esophagitis. 6. History of renal insufficiency. 7. BPH. 8. Stage 3 chronic kidney disease. 9. History of nocturia. CURRENT MEDICATIONS 1. Cymbalta (patient recently discontinued due to fatigue). 2. Metoprolol. 3. Diltiazem. 4. Cardura. 5. Pravastatin. 6. Hydrochlorothiazide. 7. Eliquis. 8. Prednisone as part of his chemotherapy regimen. 9. Apixaban. ALLERGIES IV CONTRAST DYE, which reportedly causes rash. VITAL SIGNS Temperature 97.2, blood pressure 102/57, heart rate is 96, respirations 86, oxygen saturation is 93% on room air. Weight is 76.2 kg. PHYSICAL EXAMINATION GENERAL: Patient is alert and oriented times three, in no apparent distress, sitting in the exam room chair. He is interactive and pleasant. HEENT: Exam reveals anicteric sclerae. No significant oropharyngeal lesions. NEUROLOGIC: Exam is grossly nonfocal and his gait is normal. EXTREMITIES: Exam reveals no edema, clubbing or cyanosis. SKIN: Exam reveals no concerning rash or lesion. LABORATORY STUDIES Reviewed per the [facility] record. IMAGING Recent follow-up echocardiogram is essentially stable from his pretreatment echocardiogram. ASSESSMENT AND PLAN 1. Diffuse large B cell lymphoma. Geovany has now completed two cycles of chemotherapy, the first with R-CVP and the second with R-CHOP. The second was expectedly more difficult for him to tolerate, and although he does have quite a few complaints today, it does seem that he tolerated it with reasonable toxicity. There had been some concerns for tachycardia during his second cycle , but we reviewed that his follow-up echocardiogram was essentially unchanged. He has a regular rhythm today. His peripheral neuropathy seems stable. We spent time discussing timing for follow-up imaging. We are in agreement that he will move forward with his third cycle of chemotherapy (R-CHOP). We will arrange for him to have a CT/PET scan performed late in his third cycle, and this will need to be done in [place]. As he is making a trip to [place], we will do our best to arrange a follow-up visit with me in my clinic there on the same day. We will make no further adjustments to the dosing of his chemotherapy for the time being. 2. Stage IIIA lung adenocarcinoma. We will pay particular attention to residual areas of hypermetabolism, if there are any, as Geovany is aware that a recurrence of his lung cancer could conceivably be happening simultaneously with ongoing treatment of his diffuse large B cell lymphoma. I spent a total of 30 minutes of [id number] time with the patient and his today. Twenty-five minutes of this was spent in direct counseling and coordination of care. TORI
[2017-11-21 09:17] VITALS: BP 129/82
--- NOTE | 2017-11-21 09:50 | ONC Progress Note - NP.Halsey ---
Patient History Date of Service Nov 21, 2017 Reason For Visit/HPI Patient is seen in the clinic for cycle 3 of chemotherapy with R CHOP, Adriamycin at a 50% dose reduction in vincristine at a 20% dose reduction due to peripheral neuropathy from cycle one for his Diffuse large B cell lymphoma. He is also followed in the clinic for his history of Stage III adenocarcinoma of left lung, status post resection and sequential adjuvant chemotherapy and radiation. He has now received two cycles of chemotherapy for his diffuse large B cell lymphoma. The first cycle was R-CVP, and the second cycle was R-CHOP, after clearance from Cardiology. Patient reports that cycle 2 was more difficult than cycle 1 including increased fatigue and possibly palpitations in the heart. Repeat echocardiogram was completed and Dr. Kelly reviewed this with patient previously. Today patient reports he has continued symptoms from previous, these include fatigue and weakness, neuropathy and pain but this has improved. Patient reports that he had a few days of dysuria and a slow stream. He drink cranberry juice and feels that his symptoms have completely resolved. He is not interested in doing a urine sample today but agrees that if it recurs that he will come into the clinic at that time. He reports that his appetite has been stable and nausea has been controlled. He is trying to exercise on the treadmill. He will continue to follow with physical therapy. Problem List (1) Fatigue (2) Lymphoma Oncology History 1. 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 April 15, 2017, CT chest: No significant change from September 2016; previous left upper lobectomy without locally recurrent or measurable metastatic disease; small partially loculated left pleural effusion, moderate-sized hiatal hernia, moderate coronary artery and aortic valve calcification. Stage IIIA (pT2a N2 M0) adenocarcinoma of the left upper lobe, status post left upper lobectomy with mediastinal sampling. A MET splice site variant is present (exon 14) Medical Oncologist: Dr. Kelly. Radiation Oncologist: Dr. Shaikh. Cardiothoracic Surgeon: Dr. Zavala. Park Ranger: Dr. Carballo. - April 03, 2015 CT Chest: Left upper lobe mass abutting left superior mediastinum and upper left hilum with mildly prominent left hilar lymph nodes, borderline prominent mediastinal lymph nodes. - April 20, 2015: Bronchoscopy. Pathology: Subcarinal lymph node negative, hilar lymph node negative, left upper lobe brushing consistent with adenocarcinoma, left upper lobe needle aspirate consistent with adenocarcinoma. - April 25, 2015 CT-PET: Spiculated mass of the medial left upper lobe measuring 3 x 4.6 cm, SUV = 21.4. Left suprahilar lymph node with an SUV of 9.6 , but no hypermetabolic mediastinal lymphadenopathy and no evidence of metastatic disease. - May 11, 2015: Left upper lobectomy with mediastinal sampling complicated by pneumothorax. 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 Perineural invasion was present, however. One peribronchial lymph node was positive and one AP window lymph node was positive (2 of 20 lymph nodes total). Surgical stage: pT2a pN0 cM0. Molecular profiling: ALK, EGFR, BRAF, and HER2/dayne are negative. The sample was positive for a KRAS mutation as well as a MET splice site variant (exon 14). - July 18, 2015: Initiation of adjuvant carboplatin/paclitaxel with plan for two cycles, followed by adjuvant radiation therapy. All treatment was complete in September 2015. - January 02, 2016 CT-PET: Interval left lobectomy, moderate left pleural effusion ; no evidence of residual or metastatic glucose-active disease; minimal ascites. - April 13, 2016 CT Chest: Postop changes to the left lung, moderate left pleural effusion; no evidence of recurrent disease. - October 15, 2016 CT Chest: Stable postoperative changes of left upper lobectomy. No evidence of recurrent lung carcinoma or metastatic disease. There is a large gastric hiatal hernia. - September 10, 2017 CT PET Scan: Interval development of multifocal areas of hypermetabolic metastatic disease; multiple hypermetabolic subcutaneous nodules within chest; interval development of hypermetabolic left neck base lymph node, right cardiophrenic angle lymph nodes; ill-defined curvilinear soft tissue anterior to left heart with new hypermetabolic activity; new osseous metastasis within proximal left humerus and multiple ribs; sclerosis within right cricoid cartilage with low level metabolic uptake; post surgical changes from left upper lobectomy. 2. Diffuse large B cell lymphoma. - Diagnosis made by way of biopsy of subcutaneous nodule that had presented on follow-up imaging for surveillance of his lung cancer. - Status post bone marrow biopsy that shows no involvement of diffuse large B cell lymphoma. - September 2015: Initiation of chemotherapy with R-CVP x 1 cycle. -10/31/2017 R CHOP initiated, Adriamycin 50% dose reduction, vincristine 20% dose reduction. He is scheduled for 5 total cycles. Patient experienced increased heart rate and fatigue. Echocardiogram for left ventricular ejection fraction was repeated. Left ventricular ejection fraction was at 63% and in comparison to the examination done on 10-17 no appreciable change was noted. Medical History Family History: CLL (chronic lymphoid leukemia) BROTHER OR SISTER (CLL) FH: bladder cancer FATHER (95) Psychosocial History Social History Patient is . He is retired Alcohol History He denies abuse Smoking History: Yes Smoking Status: Former Smoker Exposure to Second Hand Smoke?: No Medications and Allergies Active Scripts Prednisone (PREDNISONE) 50 Mg Tablet, 100 MG PO QDAY for 5 Days, #30 TAB 1 Refill Prov:KAY CLOUD CENA-BC, ONC 10/31/17 Reported Medications Apixaban (ELIQUIS) 5 Mg Tablet, 5 MG PO 1-2XD 10/09/17 Metoprolol Succinate (METOPROLOL SUCCINATE) 50 Mg Tab.er.24h, 1 TAB PO QDAY for Blood Pressure, TAB 08/15/15 Diltiazem Hcl (CARTIA XT) 180 Mg Cap.er.24h, 1 CAP PO BID, #180 CAP 3 Refills 08/06/14 Doxazosin Mesylate (Cardura) 8 Mg Tablet, 8 MG PO DAILY, 0 Refills 05/21/11 Pravastatin Sodium (Pravachol) 10 Mg Tablet, 10 MG PO QDAY, 0 Refills 05/21/11 Hydrochlorothiazide (Hydrochlorothiazide) 50 Mg Tablet, 50 MG PO DAILY, 0 Refills 05/21/11 Allergies: Coded Allergies: Iodinated Contrast Media - IV Dye (Verified Allergy, Mild, RASH, 06/17/15) Review of System/Physical Exam Physical Exam Vital Signs Temperature: 96.4 Pulse: 77 BP Systolic: 129 BP Diastolic: 82 Respiratory Rate: 16 O2 SAT: 92 O2 Delivery: Height (inches) 68.00 Weight lb: 169 Weight oz: Weight Kg (Bryant): Pain: 0 Skin: No Skin Rashes, No Bruising, No Purpura Diagnostic Studies Diagnostic Studies Laboratory Patient continues to have a decreased sodium value. He reports that he is increasing his sodium intake through soups and other products with high sodium value Laboratory Tests 11/21/17 09:25 Laboratory Tests 10/11/17 08:30: Hepatitis B Surface Antigen Negative, Hepatitis B Core Total Antibody Negative 10/24/17 09:04: Neutrophils % (Manual) 52, Band Neutrophils % 35, Lymphocytes % (Manual) 8, Monocytes % (Manual) 5, Eosinophils % (Manual) 0, Basophils % (Manual) 0 11/13/17 12:37: Red Blood Count 4.29, Mean Corpuscular Volume 92.1, Mean Corpuscular Hemoglobin 31.6, Mean Corpuscular Hemoglobin Concent 34.4, Red Cell Distribution Width 15.0 , Mean Platelet Volume 8.2, Monocytes (%) (Auto) 10.2, Eosinophils (%) (Auto) 0.4, Basophils (%) (Auto) 0.8, Nucleated RBC Relative Count (auto) 0.0, Monocytes # (Auto) 1.1, Eosinophils # (Auto) 0.0, Basophils # (Auto) 0.1, Nucleated RBC Absolute Count (auto) 0.00, Peripheral Blood Smear Yes 11/21/17 09:25: White Blood Count 7.9, Hemoglobin 12.6, Hematocrit 35.9, Platelet Count 212, Neutrophils (%) (Auto) 91.7, Lymphocytes (%) (Auto) 3.1, Neutrophils # (Auto) 7.2, Lymphocytes # (Auto) 0.2, Sodium Level 130, Potassium Level 4.0, Chloride Level 93, Carbon Dioxide Level 29, Blood Urea Nitrogen 12, Creatinine 0.90, Glomerular Filtration Rate Calc > 60.0, Random Glucose 83, Uric Acid 4.1, Calcium Level 9.2, Phosphorus Level 3.3, Total Bilirubin 0.7, Aspartate Amino Transf (AST/SGOT) 30, Alanine Aminotransferase (ALT/SGPT) 41, Alkaline Phosphatase 143, Lactate Dehydrogenase 317, Total Protein 6.7, Albumin 3.5 Assessment and Plan Assessment & Plan 1. Diffuse large B cell lymphoma. Patient received his 1st cycle of chemotherapy (R-CVP) with fairly reasonable tolerance and expected side effects. Patient has recovered approximately 80% Post cycle 2 with Adriamycin at a 50% dose reduction in vincristine at a 20% dose reduction, patient reports increased fatigue, cough, increased atrial fib with palpitations and generalized cardiac changes. He experienced loose stools related to stool softeners for prevention of constipation, bone pain related to Neulasta, increased neuropathy in the legs bilaterally, and generally not feeling well. On exam today prior to cycle 3 patient reports that he continues to have fatigue , neuropathy, irregular rhythm without chest pains and generalized weakness. He is trying to exercise as much as possible. 2. Thrombocytopenia. Platelets have recovered in a currently at 212,000. Patient continues on Eliquis. 3. Increased cardiac symptoms with elevated pulse rate and palpitations. Repeated 2-D echocardiogram for left ventricular ejection fraction was at 63% and essentially no changes from previous diagnostic study 4. Patient has a previous history of lung cancer with known lung nodules. Patient reports a decreased trust in Dr. Kelly at this time related to his treatment and in regards to our the lung nodules a lymphoma or recurrent cancer of the lung. It has been explained to the patient previously by Dr. Kelly and myself that without a biopsy of those lung nodules it is unknown at this time. The plan of care was to treat the B-cell lymphoma and rescan to see if patient is responding. If these lung nodules decrease in size then it is most evident that they are related to lymphoma. If the lung nodules increase in size then it is more probable that they are recurrent lung cancer. 5. Bone pain related to Neulasta. Patient took ibuprofen 600 mg last night with relief. He refuses to use tramadol or any narcotic. He refuses to use Tylenol. Risks of concurrent ibuprofen with Eliquis have been reviewed multiple times with patient. 6. Patient continues to receive physical therapy and will see them today. He reports neuropathy is his biggest concern. Plan: Cycle 3 of R CHOP to be completed today. Weekly CBC and CMP. PET/CT to be performed late after cycle 3 in [place] and patient will follow with Dr. Kelly on the same day to review the results. Patient to contact the clinic if he has questions or concerns prior his next office visit. Cycle 4 of R CHOP tentatively scheduled in 3 weeks. I spent a total of 20 minutes of time face to face with the patient today with over 50% of the time spent in direct counseling and coordination of care. KAY CLOUD CENA-BC, ONC Nov 21, 2017 09:50
[2017-11-21] MEDS: PALONOSETRON 0.25 MG/5 ML VIAL IVP PRN (10:07)
[2017-11-21] MEDS: FOSAPREPITANT DIM 150 MG/5 ML 150 MG in NS(*) 0.9% 250 ML BAG 245 ML IVPB PRN (10:30)
[2017-11-21] MEDS: ACETAMINOPHEN 325 MG TAB PO PRN (10:33)
[2017-11-21] MEDS: diphenhydrAMINE 50 MG/ML VIAL IVP PRN (11:09)
[2017-11-21] MEDS: HEPARIN FLSH (PORT) 500 UN/5ML IVP PRN (15:42)
[2017-11-21] MEDS: PEGFILGRASTIM 6 MG/0.6 ML KIT SUBQ PRN (15:43)
[2017-11-21 16:43] VITALS: BP 119/75
[2017-11-27 10:23] VITALS: BP 128/65
--- NOTE | 2017-11-27 18:10 | ONCOLOGY FOLLOW UP NOTE ---
EVENT DATE: November 27, 2017 REASON FOR FOLLOW-UP VISIT 1. Urgent followup for worsening dyspnea, fatigue, weakness. 2. Stage III adenocarcinoma of left lung, status post resection and sequential adjuvant chemotherapy and radiation. 3. Diffuse large B cell lymphoma, ongoing chemotherapy. INTERIM HISTORY Geovany is seen urgently in clinic today after calling in with worsening symptoms at home. Since our last visit, he has been placed on oxygen. He has received his third cycle of chemotherapy, the first with R-CVP, and the second and third with R-CHOP. He reports that he has been feeling worse, and worse. He reports no fever, and his appetite has been okay. He has gained a significant amount of weight which he believes is water weight. He has developed much more swelling in his legs, but he denies redness and new pain in his legs. He has become more short of breath, and he is just feeling generally weak, tired, and miserable. He has given his situation some thought, and irrespective of what is discussed today, he has decided to discontinue adriamycin as part of his chemotherapy regimen. He has a PET/CT scan planned for next Saturday, and he hopes to keep this appointment. REVIEW OF SYSTEMS Otherwise negative, and all systems were reviewed. ONCOLOGY HISTORY 1. 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 April 15, 2017, CT chest: No significant change from September 2016; previous left upper lobectomy without locally recurrent or measurable metastatic disease; small partially loculated left pleural effusion, moderate-sized hiatal hernia, moderate coronary artery and aortic valve calcification. * Stage IIIA (pT2a N2 M0) adenocarcinoma of the left upper lobe, status post left upper lobectomy with mediastinal sampling. A MET splice site variant is present (exon 14) * Medical Oncologist: Dr. Kelly. * Radiation Oncologist: Dr. Shaikh. * Cardiothoracic Surgeon: Dr. Zavala. * Manager Cath Lab: Dr. Carballo. - April 03, 2015 CT Chest: Left upper lobe mass abutting left superior mediastinum and upper left hilum with mildly prominent left hilar lymph nodes, borderline prominent mediastinal lymph nodes. - April 20, 2015: Bronchoscopy. Pathology: Subcarinal lymph node negative, hilar lymph node negative, left upper lobe brushing consistent with adenocarcinoma, left upper lobe needle aspirate consistent with adenocarcinoma. - April 25, 2015 CT-PET: Spiculated mass of the medial left upper lobe measuring 3 x 4.6 cm, SUV = 21.4. Left suprahilar lymph node with an SUV of 9.6 , but no hypermetabolic mediastinal lymphadenopathy and no evidence of metastatic disease. - May 11, 2015: Left upper lobectomy with mediastinal sampling complicated by pneumothorax. 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 Perineural invasion was present, however. One peribronchial lymph node was positive and one AP window lymph node was positive (2 of 20 lymph nodes total). Surgical stage: pT2a pN0 cM0. Molecular profiling: ALK, EGFR, BRAF, and HER2/dayne are negative. The sample was positive for a KRAS mutation as well as a MET splice site variant (exon 14). - July 18, 2015: Initiation of adjuvant carboplatin/paclitaxel with plan for two cycles, followed by adjuvant radiation therapy. All treatment was complete in September 2015. - January 02, 2016 CT-PET: Interval left lobectomy, moderate left pleural effusion ; no evidence of residual or metastatic glucose-active disease; minimal ascites. - April 13, 2016 CT Chest: Postop changes to the left lung, moderate left pleural effusion; no evidence of recurrent disease. - October 15, 2016 CT Chest: Stable postoperative changes of left upper lobectomy. No evidence of recurrent lung carcinoma or metastatic disease. There is a large gastric hiatal hernia. - September 10, 2017 CT PET Scan: Interval development of multifocal areas of hypermetabolic metastatic disease; multiple hypermetabolic subcutaneous nodules within chest; interval development of hypermetabolic left neck base lymph node, right cardiophrenic angle lymph nodes; ill-defined curvilinear soft tissue anterior to left heart with new hypermetabolic activity; new osseous metastasis within proximal left humerus and multiple ribs; sclerosis within right cricoid cartilage with low level metabolic uptake; post surgical changes from left upper lobectomy. 2. Diffuse large B cell lymphoma. - Diagnosis made by way of biopsy of subcutaneous nodule that had presented on follow-up imaging for surveillance of his lung cancer. - Status post bone marrow biopsy that shows no involvement of diffuse large B cell lymphoma. - September 2015: Initiation of chemotherapy with R-CVP for cycle one. Cycle two, R-CHOP, has now been administered. PAST MEDICAL HISTORY 1. Hyperlipidemia. 2. Hypertension. 3. History of paroxysmal atrial fibrillation. 4. Gastroesophageal reflux disease with hiatal hernia. 5. History of reflux esophagitis. 6. History of renal insufficiency. 7. BPH. 8. Stage 3 chronic kidney disease. 9. History of nocturia. CURRENT MEDICATIONS 1. Cymbalta (patient recently discontinued due to fatigue). 2. Metoprolol. 3. Diltiazem. 4. Cardura. 5. Pravastatin. 6. Hydrochlorothiazide. 7. Eliquis. 8. Prednisone as part of his chemotherapy regimen. 9. Apixaban. ALLERGIES IV CONTRAST DYE, which reportedly causes rash. VITAL SIGNS Patient is afebrile. Blood pressure 128/63, pulse 132 (140-150 upon my exam), respirations 18, oxygen saturation is 77% on room air. Weight is 81 kg. PHYSICAL EXAMINATION GENERAL: Patient is alert and oriented times three, in no apparent distress, sitting in the exam room chair. He appears tired. He is interactive and pleasant. HEENT: Exam reveals anicteric sclerae. He is wearing O2 by nasal cannula. LUNGS: Clear to auscultation bilaterally. HEART: Exam reveals a rapid, irregularly irregular rhythm. NEUROLOGIC: Exam is grossly nonfocal, and his gait appears fairly steady. EXTREMITIES: Exam reveals significant bilateral lower extremity edema, but no overlying erythema, and no tenderness to palpation. LABORATORY STUDIES Pending. ASSESSMENT AND PLAN 1. Rapid atrial fibrillation/flutter. I visited with Geovany and his today and we discussed his recent and worsening symptoms. The biggest concern at this point is for his tachycardia, but he is holding his blood pressure at this point. He has become more hypoxic with time, and he has developed new/ worsening peripheral edema. Obviously, this raises concern for congestive heart failure, especially given his history. He is not having any chest pain, however. I have reviewed his situation with the emergency room physician here at [facility]. He will be taken to the emergency department immediately for evaluation. While he is there, I would favor 12-lead EKG, transthoracic echocardiogram, troponins, and CBC and CMP to start. He has had a falling sodium level, but he has had no seizure activity. As discussed with Geovany and his , I will be visiting with him later in the emergency department to discuss his situation and determine disposition. 2. Diffuse large B cell lymphoma. Geovany has decided to omit adriamycin from his regimen. If he had not made this decision prior, I would have recommended it. He does have a PET/CT scan coming up next Saturday, and he will be visiting with me thereafter to review the results. At this point, he does have an open mind for continuing with R-CVP, but this determination will be made after review of his imaging. 3. Stage IIIA lung adenocarcinoma. Again, this will be followed up with his upcoming PET/CT scan. MTDD
[2017-12-12 09:12] VITALS: BP 128/82
[2017-12-12] MEDS: ACETAMINOPHEN 325 MG TAB PO PRN (09:46)
[2017-12-12] MEDS: diphenhydrAMINE 50 MG/ML VIAL IVP PRN (09:47)
[2017-12-12] MEDS: PALONOSETRON 0.25 MG/5 ML VIAL IVP PRN (09:47)
[2017-12-12] MEDS: HEPARIN FLSH (PORT) 500 UN/5ML IVP PRN ×2 (09:47→15:15)
[2017-12-12] MEDS: NS(*) 0.9% 500 ML BAG 500 ML IV PRN (09:47)
[2017-12-12] MEDS: FOSAPREPITANT DIM 150 MG/5 ML 150 MG in NS(*) 0.9% 250 ML BAG 245 ML IVPB PRN (10:47)
[2017-12-12 15:11] VITALS: BP 139/78
[2017-12-12] MEDS: PEGFILGRASTIM 6 MG/0.6 ML KIT SUBQ PRN (15:18)
[2017-12-19 10:20] LABS: PLATELET COUNT, AUTOMATED 83 K/uL (150-450)
[2017-12-19 10:48] VITALS: BP 111/64
[~2017-12-25] VITALS: Ht 172.7 cm; Wt 77.6 kg
[~2017-12-25] MED LIST changes: +ALTEPLASE RECOMB 2 MG VIAL IVP PRN; +CYCLOPHOSPHAMIDE IVPB ONE; +CYCLOPHOSPHAMIDE IVPB PRN; +DEXTROSE 5%(*) 100 ML BAG 100 ML IVPB PRN; +DOXOrubicin 50 MG/25 ML VIAL IVP ONE; +LIDOCAINE/SOD BICARB 8.4% SYR ID PRN; +LORA1TAB69 PO; +NS(*) 0.9% 100 ML BAG 100 ML IVPB PRN; +SODIUM CHLORIDE 0.9% IVP ONE; +VINCRISTINE IVP ONE; +WATER STERILE 10 ML VIAL IVP PRN; +[UNRECOGNIZED DRUG - OTHER] IVPB ONE; +[UNRECOGNIZED DRUG - OTHER] IVPB PRN; +predniSONE 20 MG TAB PO ONE; +riTUXimab 500 MG/50 ML SDV 500 MG, riTUXimab 100 MG/10 ML SDV 200 MG in NS(*) 0.9% 1000... IV ONE; +riTUXimab 500 MG/50 ML SDV 500 MG, riTUXimab 100 MG/10 ML SDV 200 MG in NS(*) 0.9% 500 ... IV PRN; +vinCRIStine SULF 2 MG/2ML VIAL 2 MG in NS(*) 0.9% 50 ML BAG 50 ML IVP PRN
[2017-12-25 14:34] VITALS: BP 129/64
--- NOTE | 2017-12-26 04:17 | ONCOLOGY FOLLOW UP NOTE ---
EVENT DATE: December 25, 2017 REASON FOR FOLLOW-UP VISIT 1. Stage III adenocarcinoma of left lung, status post resection and sequential adjuvant chemotherapy and radiation; in remission. 2. Diffuse large B cell lymphoma, undergoing chemotherapy. INTERIM HISTORY Geovany is seen in the clinic today with his . He has now received four cycles of chemotherapy for his diffuse large B cell lymphoma. Geovany reports that as his cycles have moved on, they have gotten more difficult, independent of whether Adriamycin has been part of the regimen or not. Unfortunately, during his recent cycle, he was seen in the emergency department in [place] with rapid atrial fibrillation/flutter. He was treated appropriately and discharged from the emergency department. He reports that he has had some ongoing episodes of fast heart rate and shortness of breath. These tend to occur when he is up and around, getting activity, but they happen much less frequently at rest. He currently reports no problems with chest pain, shortness of breath, productive cough or fever. His appetite has been fair, and his weight has been pretty stable. His biggest complaint today is frustration with his overall status, concern for recurrence of lymphoma, and whether further chemotherapy is worth it. He misses his youth, and he misses being active in general. He has not been able to go to the gym. He states today that if he were to have a recurrence of either of his cancers, he would likely "call it quits". At this time, however, he is leaning in the direction of receiving more chemotherapy for his lymphoma, however. REVIEW OF SYSTEMS Otherwise negative, and all systems were reviewed. ONCOLOGY HISTORY 1. 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 April 15, 2017, CT chest: No significant change from September 2016; previous left upper lobectomy without locally recurrent or measurable metastatic disease; small partially loculated left pleural effusion, moderate-sized hiatal hernia, moderate coronary artery and aortic valve calcification. * Stage IIIA (pT2a N2 M0) adenocarcinoma of the left upper lobe, status post left upper lobectomy with mediastinal sampling. A MET splice site variant is present (exon 14) * Medical Oncologist: Dr. Kelly. * Radiation Oncologist: Dr. Shaikh. * Cardiothoracic Surgeon: Dr. Zavala. * [employer]: Dr. Carballo. - April 03, 2015 CT Chest: Left upper lobe mass abutting left superior mediastinum and upper left hilum with mildly prominent left hilar lymph nodes, borderline prominent mediastinal lymph nodes. - April 20, 2015: Bronchoscopy. Pathology: Subcarinal lymph node negative, hilar lymph node negative, left upper lobe brushing consistent with adenocarcinoma, left upper lobe needle aspirate consistent with adenocarcinoma. - April 25, 2015 CT-PET: Spiculated mass of the medial left upper lobe measuring 3 x 4.6 cm, SUV = 21.4. Left suprahilar lymph node with an SUV of 9.6 , but no hypermetabolic mediastinal lymphadenopathy and no evidence of metastatic disease. - May 11, 2015: Left upper lobectomy with mediastinal sampling complicated by pneumothorax. 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 Perineural invasion was present, however. One peribronchial lymph node was positive and one AP window lymph node was positive (2 of 20 lymph nodes total). Surgical stage: pT2a pN0 cM0. Molecular profiling: ALK, EGFR, BRAF, and HER2/dayne are negative. The sample was positive for a KRAS mutation as well as a MET splice site variant (exon 14). - July 18, 2015: Initiation of adjuvant carboplatin/paclitaxel with plan for two cycles, followed by adjuvant radiation therapy. All treatment was complete in September 2015. - January 02, 2016 CT-PET: Interval left lobectomy, moderate left pleural effusion ; no evidence of residual or metastatic glucose-active disease; minimal ascites. - April 13, 2016 CT Chest: Postop changes to the left lung, moderate left pleural effusion; no evidence of recurrent disease. - October 15, 2016 CT Chest: Stable postoperative changes of left upper lobectomy. No evidence of recurrent lung carcinoma or metastatic disease. There is a large gastric hiatal hernia. - September 10, 2017 CT PET Scan: Interval development of multifocal areas of hypermetabolic metastatic disease; multiple hypermetabolic subcutaneous nodules within chest; interval development of hypermetabolic left neck base lymph node, right cardiophrenic angle lymph nodes; ill-defined curvilinear soft tissue anterior to left heart with new hypermetabolic activity; new osseous metastasis within proximal left humerus and multiple ribs; sclerosis within right cricoid cartilage with low level metabolic uptake; post surgical changes from left upper lobectomy. 2. Diffuse large B cell lymphoma. - Diagnosis made by way of biopsy of subcutaneous nodule that had presented on follow-up imaging for surveillance of his lung cancer. - Status post bone marrow biopsy that shows no involvement of diffuse large B cell lymphoma. - September 2015: Initiation of chemotherapy with R-CVP for cycle one. Cycle two, R-CHOP, has now been administered. Cycle three and four with R-CVP have been completed. PAST MEDICAL HISTORY 1. Hyperlipidemia. 2. Hypertension. 3. History of paroxysmal atrial fibrillation. 4. Gastroesophageal reflux disease with hiatal hernia. 5. History of reflux esophagitis. 6. History of renal insufficiency. 7. BPH. 8. Stage 3 chronic kidney disease. 9. History of nocturia. CURRENT MEDICATIONS 1. Cymbalta (patient recently discontinued due to fatigue). 2. Metoprolol. 3. Diltiazem. 4. Cardura. 5. Pravastatin. 6. Hydrochlorothiazide. 7. Eliquis. 8. Prednisone as part of his chemotherapy regimen. 9. Apixaban. ALLERGIES IV CONTRAST DYE, which reportedly causes rash. VITAL SIGNS Temperature is 98.8. Blood pressure 124/72. Heart rate is 82. Respirations 16. Oxygen saturation is 91% on room air. Weight is 77.6 kg. PHYSICAL EXAMINATION GENERAL: Patient is alert and oriented x 3, in no apparent distress, sitting in the exam room chair. He is interactive and talkative. HEENT: Exam reveals anicteric sclerae. NEUROLOGIC: Exam is grossly nonfocal, and his gait is normal. SKIN: Exam reveals no concerning rash or lesion. EXTREMITIES: Exam reveals no cyanosis. He does have some edema of the lower extremities. The rest of physical exam is deferred for extensive discussion. LABORATORY STUDIES Laboratory studies are reviewed per the [facility] record. ASSESSMENT AND PLAN 1. Diffuse large B cell lymphoma. I had a lengthy visit with Geovany and his today. We spent time discussing his most recent trip to the emergency department with rapid atrial fibrillation/flutter. He was not admitted to the hospital. Geovany does not want to be seen in the emergency department here in [place] should this happen again, but he understands that learning from his history, this is not unlikely to happen again. With extensive discussion today , and listening about his concerns for general toxicity with chemotherapy, all of which are expected, we have made the decision to have him move forward with his fifth cycle of chemotherapy with R-CVP. We discussed the possibility of relapse of his lymphoma, or recurrence of his lung cancer today as well. I have acknowledged the fact that Geovany would not want to receive any additional therapy if either of his cancers were to recur in the future. This is not unreasonable. We spent time today discussing quality of life and how we could improve this. I will plan to see him back in clinic in three weeks. 2. Stage IIIA lung adenocarcinoma. At this point, there is no definitive recurrence of his lung cancer. 3. Rapid atrial fibrillation/flutter. The patient did have cardiology evaluation during his recent emergency room trip to [place]. His Cardizem has been increased, and his rate is currently controlled. Again, I would not be surprised if he has an episode of this with future chemotherapy administrations. The patient accepts this. I spent a total of 30 minutes of time face to face with the patient and his today, and 25 minutes of this was spent in direct counseling and coordination of care. TORI
== END ==
LOC: ONC 09-26 13:41 → SPU 10-17 08:53 → ONC 10-30 09:26 → SPU 11-06 09:00 → ONC 11-21 09:00 → SPU 12-19 09:30
PROVIDERS: ATTEND Internal Medicine Medical Oncology
DX: Z51.11 Encounter for antineoplastic chemotherapy (principal); C34.92 Malignant neoplasm of unspecified part of left bronchus or lung; C83.30 Diffuse large B-cell lymphoma, unspecified site; R53.83 Other fatigue; Z87.891 Personal history of nicotine dependence; Z79.899 Other long term (current) drug therapy; G62.9 Polyneuropathy, unspecified; G47.00 Insomnia, unspecified; M25.512 Pain in left shoulder; R10.2 Pelvic and perineal pain; I10 Essential (primary) hypertension; E78.00 Pure hypercholesterolemia, unspecified; H91.90 Unspecified hearing loss, unspecified ear; R53.1 Weakness; M79.1 Myalgia; Z79.01 Long term (current) use of anticoagulants; M62.81 Muscle weakness (generalized); M54.5 Low back pain; R20.2 Paresthesia of skin
CPT/HCPCS: 36415; 83615; 84100; 84550; 85025; 85027; 86704; 87340; 96367; 96372; 96375; 96411; 96413; 96415; 96417; A9270; G0463; J1200; J1453; J1642; J2469; J2505; J7030; J7040; J7050; J7512; J9000; J9070; J9310; J9370; 82040; 82247; 82310; 82374; 82435; 82565; 82947; 84075; 84132; 84155; 84295; 84450; 84460; 84520; 96416; 99212

== ENCOUNTER 2018-03-24 10:00 | Outpatient (RCR) | payer MEDICARE, BC ==
[2018-01-02 09:22] LABS: PLATELET COUNT, AUTOMATED 137 K/uL (150-450)
[2018-01-02 09:24] VITALS: BP 120/64
[2018-01-02] MEDS: ACETAMINOPHEN 325 MG TAB PO PRN (09:42)
[2018-01-02] MEDS: PALONOSETRON 0.25 MG/5 ML VIAL IVP PRN (09:42)
[2018-01-02] MEDS: diphenhydrAMINE 50 MG/ML VIAL IVP PRN (09:43)
[2018-01-02] MEDS: NS(*) 0.9% 500 ML BAG 500 ML IV PRN (09:48)
[2018-01-02] MEDS: HEPARIN FLSH (PORT) 500 UN/5ML IVP PRN (09:49)
[2018-01-02] MEDS: FOSAPREPITANT DIM 150 MG/5 ML 150 MG in NS(*) 0.9% 250 ML BAG 245 ML IVPB PRN (10:21)
[2018-01-02 14:52] VITALS: BP 113/70
[2018-01-09 09:21] VITALS: BP 129/74
[2018-01-09 09:43] LABS: PLATELET COUNT, AUTOMATED 131 K/uL (150-450)
[2018-01-16 08:47] LABS: PLATELET COUNT, AUTOMATED 120 K/uL (150-450)
[2018-01-16 09:05] VITALS: BP 106/58
--- NOTE | 2018-01-17 03:53 | ONCOLOGY FOLLOW UP NOTE ---
EVENT DATE: January 16, 2018 REASON FOR FOLLOW-UP VISIT 1. Stage III adenocarcinoma of left lung, status post resection and sequential adjuvant chemotherapy and radiation; in remission. 2. Diffuse large B cell lymphoma, undergoing chemotherapy. INTERIM HISTORY Geovany is here with his today. He has completed five cycles of chemotherapy to date for his diffuse large B cell lymphoma. He again reports that he basically just feels miserable in general. This has not changed over the long-term, per the patient and his . He has ongoing fatigue, ongoing frustration with his overall wellbeing, and general concern for his lack of capacity to ever feel better in general. He reports no fever. His appetite has been fine. His bowel habits have not changed. He does have some ongoing musculoskeletal aches and pains, but these have not changed. His fatigue has been worse as a cumulative side effect from his chemotherapy. He does note occasional shortness of breath with exertion, and he does use oxygen as he needs it. He is not wearing oxygen today. He reports no problems with chest pain or palpitations during his recent fifth cycle of chemotherapy. REVIEW OF SYSTEMS Otherwise negative, and all systems were reviewed. ONCOLOGY HISTORY 1. 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 April 15, 2017, CT chest: No significant change from September 2016; previous left upper lobectomy without locally recurrent or measurable metastatic disease; small partially loculated left pleural effusion, moderate-sized hiatal hernia, moderate coronary artery and aortic valve calcification. * Stage IIIA (pT2a N2 M0) adenocarcinoma of the left upper lobe, status post left upper lobectomy with mediastinal sampling. A MET splice site variant is present (exon 14) * Medical Oncologist: Dr. Kelly. * Radiation Oncologist: Dr. Shaikh. * Cardiothoracic Surgeon: Dr. Zavala. * Cna Gna: Dr. Carballo. - April 03, 2015 CT Chest: Left upper lobe mass abutting left superior mediastinum and upper left hilum with mildly prominent left hilar lymph nodes, borderline prominent mediastinal lymph nodes. - April 20, 2015: Bronchoscopy. Pathology: Subcarinal lymph node negative, hilar lymph node negative, left upper lobe brushing consistent with adenocarcinoma, left upper lobe needle aspirate consistent with adenocarcinoma. - April 25, 2015 CT-PET: Spiculated mass of the medial left upper lobe measuring 3 x 4.6 cm, SUV = 21.4. Left suprahilar lymph node with an SUV of 9.6 , but no hypermetabolic mediastinal lymphadenopathy and no evidence of metastatic disease. - May 11, 2015: Left upper lobectomy with mediastinal sampling complicated by pneumothorax. 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 Perineural invasion was present, however. One peribronchial lymph node was positive and one AP window lymph node was positive (2 of 20 lymph nodes total). Surgical stage: pT2a pN0 cM0. Molecular profiling: ALK, EGFR, BRAF, and HER2/dayne are negative. The sample was positive for a KRAS mutation as well as a MET splice site variant (exon 14). - July 18, 2015: Initiation of adjuvant carboplatin/paclitaxel with plan for two cycles, followed by adjuvant radiation therapy. All treatment was complete in September 2015. - January 02, 2016 CT-PET: Interval left lobectomy, moderate left pleural effusion ; no evidence of residual or metastatic glucose-active disease; minimal ascites. - April 13, 2016 CT Chest: Postop changes to the left lung, moderate left pleural effusion; no evidence of recurrent disease. - October 15, 2016 CT Chest: Stable postoperative changes of left upper lobectomy. No evidence of recurrent lung carcinoma or metastatic disease. There is a large gastric hiatal hernia. - September 10, 2017 CT PET Scan: Interval development of multifocal areas of hypermetabolic metastatic disease; multiple hypermetabolic subcutaneous nodules within chest; interval development of hypermetabolic left neck base lymph node, right cardiophrenic angle lymph nodes; ill-defined curvilinear soft tissue anterior to left heart with new hypermetabolic activity; new osseous metastasis within proximal left humerus and multiple ribs; sclerosis within right cricoid cartilage with low level metabolic uptake; post surgical changes from left upper lobectomy. 2. Diffuse large B cell lymphoma. - Diagnosis made by way of biopsy of subcutaneous nodule that had presented on follow-up imaging for surveillance of his lung cancer. - Status post bone marrow biopsy that shows no involvement of diffuse large B cell lymphoma. - September 2015: Initiation of chemotherapy with R-CVP for cycle one. Cycle two, R-CHOP, has now been administered. Cycle five of chemotherapy has been completed. PAST MEDICAL HISTORY 1. Hyperlipidemia. 2. Hypertension. 3. History of paroxysmal atrial fibrillation. 4. Gastroesophageal reflux disease with hiatal hernia. 5. History of reflux esophagitis. 6. History of renal insufficiency. 7. BPH. 8. Stage 3 chronic kidney disease. 9. History of nocturia. CURRENT MEDICATIONS 1. Cymbalta (patient recently discontinued due to fatigue). 2. Metoprolol. 3. Diltiazem. 4. Cardura. 5. Pravastatin. 6. Hydrochlorothiazide. 7. Eliquis. 8. Prednisone as part of his chemotherapy regimen. 9. Apixaban. ALLERGIES IV CONTRAST DYE, which reportedly causes rash. VITAL SIGNS Temperature is 97.8. Blood pressure 108/56. Heart rate is 95. Respirations 16. Oxygen saturation 94% on room air. Weight is 78.9 kg. PHYSICAL EXAMINATION GENERAL: Patient is alert and oriented x 3, in no apparent distress, sitting in the exam room chair. He is interactive and pleasant, but mood is not particularly good. HEENT: Exam reveals anicteric sclerae and moist mucous membranes. NEUROLOGIC: Exam is grossly nonfocal, and his gait is normal. EXTREMITIES: Exam reveals some edema of the lower extremities, unchanged, and no erythema or tenderness to palpation. LABORATORY STUDIES Laboratory studies are reviewed per the [facility] record. IMAGING None today. ASSESSMENT AND PLAN 1. Diffuse large B cell lymphoma. I visited again with Geovany and his today. He has successfully completed five cycles of chemotherapy (R-CHOP/R-CVP ) for his diffuse large B cell lymphoma. He does seem quite motivated to complete six cycles of chemotherapy, "Because that is what I said I was going to do". He remains frustrated as always with his overall lack of wellbeing. We spent some time again discussing this today. I have estimated that it will take him a few months after chemotherapy to find a better semblance of quality of life. He was frustrated again to hear this. I am concerned that Geovany may have expectations that are not particularly reasonable in terms of his overall function and eventual wellbeing after he completes chemotherapy. We also moved on to discuss expectations for ongoing imaging. I do think it would be reasonable for him to have a repeat CT PET scan about a month or so after he completes his sixth cycle. I would not foresee further therapy from that point forward, but that he would continue with ongoing surveillance and symptom directed care. He has expressed in the past he would not want anything to do with further treatment should he have a recurrence of either his lung cancer or relapse of his lymphoma. 2. Stage IIIA lung adenocarcinoma. Again, there is no definitive evidence of recurrence. 3. Atrial fibrillation. The patient's rate is normal today, and he did not have concerning symptoms to bring another visit to the emergency department during his most recent cycle of chemotherapy. I will plan to see to the patient back for followup in about one month here in my [place] clinic, or sooner if there are questions or concerns. I spent a total of 30 minutes of time face to face with the patient and his today, and 25 minutes of this was spent in direct counseling and coordination of care. TORI
[2018-01-23] MEDS: NS(*) 0.9% 500 ML BAG 500 ML IV PRN ×2 (09:38→15:49)
[2018-01-23 09:42] VITALS: BP 131/73
[2018-01-23] MEDS: ACETAMINOPHEN 325 MG TAB PO PRN (10:36)
[2018-01-23] MEDS: PALONOSETRON 0.25 MG/5 ML VIAL IVP PRN (10:38)
[2018-01-23] MEDS: diphenhydrAMINE 50 MG/ML VIAL IVP PRN (10:43)
[2018-01-23] MEDS: FOSAPREPITANT DIM 150 MG/5 ML 150 MG in NS(*) 0.9% 250 ML BAG 245 ML IVPB PRN (11:05)
[2018-01-23] MEDS: HEPARIN FLSH (PORT) 500 UN/5ML IVP PRN (16:31)
[2018-01-23 16:34] VITALS: BP 102/71
[2018-03-03 10:00] VITALS: BP 125/71
[2018-03-03 10:36] LABS: PLATELET COUNT, AUTOMATED 111 K/uL (150-450)
[2018-03-03] MEDS: HEPARIN FLSH (PORT) 500 UN/5ML IVP PRN (10:40)
[2018-03-05 13:50] VITALS: BP 111/68
--- NOTE | 2018-03-06 09:08 | ONCOLOGY FOLLOW UP NOTE ---
EVENT DATE: March 05, 2018 REASON FOR FOLLOW-UP VISIT 1. Stage III adenocarcinoma of left lung, status post resection and sequential adjuvant chemotherapy and radiation; in remission. 2. Diffuse large B cell lymphoma, undergoing chemotherapy. INTERIM HISTORY Geovany returns to the clinic for a followup visit today. He is accompanied by his . He has now completed six cycles of chemotherapy for his diffuse large B cell lymphoma. Unfortunately, after his sixth cycle of chemotherapy he was hospitalized for hyponatremia. He was subsequently discharged to a rehab facility in [place], where he stayed for about three weeks. He is now home but reports that he has not made much more progress since leaving rehab. He continues to feel tired in general and he continues to be frustrated with his lack of overall wellbeing, as is the usual case. He reports no fever. He has no noticed no new lumps or bumps. He is very frustrated with his current plan of fluid restriction and having to take salt tablets. He expresses skepticism that any of his chemotherapy for his lymphomas has "done the job". He requests that his fluid restriction and other variables, including his antihypertensives, regain stability after his discharge from rehab before he goes for another CT PET scan. REVIEW OF SYSTEMS Otherwise negative, and all systems were reviewed. ONCOLOGY HISTORY 1. 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 April 15, 2017, CT chest: No significant change from September 2016; previous left upper lobectomy without locally recurrent or measurable metastatic disease; small partially loculated left pleural effusion, moderate-sized hiatal hernia, moderate coronary artery and aortic valve calcification. * Stage IIIA (pT2a N2 M0) adenocarcinoma of the left upper lobe, status post left upper lobectomy with mediastinal sampling. A MET splice site variant is present (exon 14) * Medical Oncologist: Dr. Kelly. * Radiation Oncologist: Dr. Shaikh. * Cardiothoracic Surgeon: Dr. Zavala. * Director Of Corporate Sales: Dr. Carballo. - April 03, 2015 CT Chest: Left upper lobe mass abutting left superior mediastinum and upper left hilum with mildly prominent left hilar lymph nodes, borderline prominent mediastinal lymph nodes. - April 20, 2015: Bronchoscopy. Pathology: Subcarinal lymph node negative, hilar lymph node negative, left upper lobe brushing consistent with adenocarcinoma, left upper lobe needle aspirate consistent with adenocarcinoma. - April 25, 2015 CT-PET: Spiculated mass of the medial left upper lobe measuring 3 x 4.6 cm, SUV = 21.4. Left suprahilar lymph node with an SUV of 9.6 , but no hypermetabolic mediastinal lymphadenopathy and no evidence of metastatic disease. - May 11, 2015: Left upper lobectomy with mediastinal sampling complicated by pneumothorax. 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 Perineural invasion was present, however. One peribronchial lymph node was positive and one AP window lymph node was positive (2 of 20 lymph nodes total). Surgical stage: pT2a pN0 cM0. Molecular profiling: ALK, EGFR, BRAF, and HER2/dayne are negative. The sample was positive for a KRAS mutation as well as a MET splice site variant (exon 14). - July 18, 2015: Initiation of adjuvant carboplatin/paclitaxel with plan for two cycles, followed by adjuvant radiation therapy. All treatment was complete in September 2015. - January 02, 2016 CT-PET: Interval left lobectomy, moderate left pleural effusion ; no evidence of residual or metastatic glucose-active disease; minimal ascites. - April 13, 2016 CT Chest: Postop changes to the left lung, moderate left pleural effusion; no evidence of recurrent disease. - October 15, 2016 CT Chest: Stable postoperative changes of left upper lobectomy. No evidence of recurrent lung carcinoma or metastatic disease. There is a large gastric hiatal hernia. - September 10, 2017 CT PET Scan: Interval development of multifocal areas of hypermetabolic metastatic disease; multiple hypermetabolic subcutaneous nodules within chest; interval development of hypermetabolic left neck base lymph node, right cardiophrenic angle lymph nodes; ill-defined curvilinear soft tissue anterior to left heart with new hypermetabolic activity; new osseous metastasis within proximal left humerus and multiple ribs; sclerosis within right cricoid cartilage with low level metabolic uptake; post surgical changes from left upper lobectomy. 2. Diffuse large B cell lymphoma. - Diagnosis made by way of biopsy of subcutaneous nodule that had presented on follow-up imaging for surveillance of his lung cancer. - Status post bone marrow biopsy that shows no involvement of diffuse large B cell lymphoma. - September 2015: Initiation of chemotherapy with R-CVP for cycle one. Cycle two, R-CHOP, has now been administered. Cycle five of chemotherapy has been completed. - December 2015: Completion of his sixth cycle of chemotherapy. All cycles except cycle two were R-CVP. PAST MEDICAL HISTORY 1. Hyperlipidemia. 2. Hypertension. 3. History of paroxysmal atrial fibrillation. 4. Gastroesophageal reflux disease with hiatal hernia. 5. History of reflux esophagitis. 6. History of renal insufficiency. 7. BPH. 8. Stage 3 chronic kidney disease. 9. History of nocturia. CURRENT MEDICATIONS The patient is currently unsure of his current medication last as he forgot it at home. He reports his metoprolol has been stopped, however. ALLERGIES IV CONTRAST DYE, which reportedly causes rash. VITAL SIGNS Temperature is 96.9. Blood pressure 111/68. Heart rate is 105. Respirations 16. Oxygen saturation 93% on room air. Weight is 72.3 kg. PHYSICAL EXAMINATION GENERAL: Patient is alert and oriented x 3, in no apparent distress, sitting in the exam room chair. He is interactive but not in a good mood. HEENT: Exam reveals anicteric sclerae. NEUROLOGIC: Exam is grossly nonfocal, and his gait is normal. EXTREMITIES: Exam reveals no clubbing or cyanosis but he does have edema of the bilateral lower extremities. SKIN: Exam reveals no concerning rash or lesion. LABORATORY STUDIES Laboratory studies are reviewed per the [facility] record. ASSESSMENT AND PLAN 1. Diffuse large B cell lymphoma. Geovany has now completed six cycles of chemotherapy for his lymphoma. We spent time today discussing the plan moving forward, which will be to have him go for a CT/PET scan. He requests that I be in touch with both cardiology and nephrology for further management of his medications as well as his fluid restriction, which has become nearly intolerable for him. I have agreed to do so. We will have him return to see Amira, nurse practitioner, here in the clinic in the next week or two, and I will plan to see him at the end of this month. Hopefully, we will have a CT/ PET scan to review at that time. He will continue on his fluid restriction and sodium tablets for the time being. We did review his followup labs today and these are quite encouraging. Namely, his sodium has normalized. 2. Stage IIIA lung adenocarcinoma. Again, we will await the results of his upcoming CT/PET scan to assess for any evidence of lung cancer recurrence. I spent 30 minutes of time face to face with the patient and his today, and 25 minutes of this was spent in direct counseling and coordination of care. TORI
[2018-03-10 10:04] VITALS: BP 126/86
[2018-03-10 10:13] LABS: PLATELET COUNT, AUTOMATED 112 K/uL (150-450)
--- NOTE | 2018-03-10 11:36 | ONC Progress Note - NP.Halsey ---
Patient History: CLL (chronic lymphoid leukemia) BROTHER OR SISTER (CLL) FH: bladder cancer FATHER (95) Social History: Social History This is a 83 Yr old White male, he is M and has [] Children Hx Smoking: Yes Smoking Status: Former Smoker Exposure to Second Hand Smoke?: No Oncology History ONCOLOGY HISTORY 1. 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 April 15, 2017, CT chest: No significant change from September 2016; previous left upper lobectomy without locally recurrent or measurable metastatic disease; small partially loculated left pleural effusion, moderate-sized hiatal hernia, moderate coronary artery and aortic valve calcification. * Stage IIIA (pT2a N2 M0) adenocarcinoma of the left upper lobe, status post left upper lobectomy with mediastinal sampling. A MET splice site variant is present (exon 14) * Medical Oncologist: Dr. Kelly. * Radiation Oncologist: Dr. Shaikh. * Cardiothoracic Surgeon: Dr. Zavala. * Satellite Tv Installer: Dr. Carballo. - April 03, 2015 CT Chest: Left upper lobe mass abutting left superior mediastinum and upper left hilum with mildly prominent left hilar lymph nodes, borderline prominent mediastinal lymph nodes. - April 20, 2015: Bronchoscopy. Pathology: Subcarinal lymph node negative, hilar lymph node negative, left upper lobe brushing consistent with adenocarcinoma, left upper lobe needle aspirate consistent with adenocarcinoma. - April 25, 2015 CT-PET: Spiculated mass of the medial left upper lobe measuring 3 x 4.6 cm, SUV = 21.4. Left suprahilar lymph node with an SUV of 9.6 , but no hypermetabolic mediastinal lymphadenopathy and no evidence of metastatic disease. - May 11, 2015: Left upper lobectomy with mediastinal sampling complicated by pneumothorax. 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 Perineural invasion was present, however. One peribronchial lymph node was positive and one AP window lymph node was positive (2 of 20 lymph nodes total). Surgical stage: pT2a pN0 cM0. Molecular profiling: ALK, EGFR, BRAF, and HER2/dayne are negative. The sample was positive for a KRAS mutation as well as a MET splice site variant (exon 14). - July 18, 2015: Initiation of adjuvant carboplatin/paclitaxel with plan for two cycles, followed by adjuvant radiation therapy. All treatment was complete in September 2015. - January 02, 2016 CT-PET: Interval left lobectomy, moderate left pleural effusion ; no evidence of residual or metastatic glucose-active disease; minimal ascites. - April 13, 2016 CT Chest: Postop changes to the left lung, moderate left pleural effusion; no evidence of recurrent disease. - October 15, 2016 CT Chest: Stable postoperative changes of left upper lobectomy. No evidence of recurrent lung carcinoma or metastatic disease. There is a large gastric hiatal hernia. - September 10, 2017 CT PET Scan: Interval development of multifocal areas of hypermetabolic metastatic disease; multiple hypermetabolic subcutaneous nodules within chest; interval development of hypermetabolic left neck base lymph node, right cardiophrenic angle lymph nodes; ill-defined curvilinear soft tissue anterior to left heart with new hypermetabolic activity; new osseous metastasis within proximal left humerus and multiple ribs; sclerosis within right cricoid cartilage with low level metabolic uptake; post surgical changes from left upper lobectomy. 2. Diffuse large B cell lymphoma. - Diagnosis made by way of biopsy of subcutaneous nodule that had presented on follow-up imaging for surveillance of his lung cancer. - Status post bone marrow biopsy that shows no involvement of diffuse large B cell lymphoma. - September 2015: Initiation of chemotherapy with R-CVP for cycle one. Cycle two, R-CHOP, has now been administered. Cycle five of chemotherapy has been completed. - December 2015: Completion of his sixth cycle of chemotherapy. All cycles except cycle two were R-CVP. - 01/2018 developed hyponatremia. Normalized to date 03/10/18 Na+of 141. on 1G Sodium Tabs. & fluid restriction. Review of Systems Cardiovascular: No Chest Pain, No Orthopnea, No Edema, No Palpitations, OTHER ( elevated heart rate 106 today) Respiratory: No Cough, No Expectoration, No Hemoptysis, No Shortness of Breath , No Wheezing, No OTHER HEENT: No EARS: Tinnitus, No NOSE: Nasal Discharge, No THROAT: Sore Throat, No EYES: Dipolpia, No EARS: Hearing Problems, No NOSE: Epistaxis, No THROAT: Mouth Ulcers, No EYES: Vision Change, No OTHER Gastrointestinal: No Nausea, No Vomitting, No Diarrehea, No Constipation, No Heart Burn, No Swallowing Difficulties, No Abdominal Pain, No Other Gentiourinary: No Hematuria, No Dysuria, No Nocturia, No Other Hematological: No Bleeding, Weakness, No Enlarged Lyph Nodes, No Bruising, No Fatigue, No Other Musculogskeletal: Muscle Pain, Joint Pain, Bone Pain Psychiatric: Anxiety, Depression Physical Exam Vital Sign Temperature: 97.3 Pulse: 106 BP Systolic: 126 BP Diastolic: 86 Respiratory Rate: 16 O2 SAT: 97 O2 Delivery: Height (feet) Height (inches) 68.00 Weight lb: 171 Weight oz: Weight Kg (Bryant): Pain: 0 Heart: No Gallops, No Murmurs, Other (tachycardia pulse 106) Abdomen: No Soft and Nontender, No Hepatosplenomegaly, No Masses, No Other Lymphatics: No Peripheral Lymphadenopathy, No Other Psychiatric: Mood appears normal, Affect appears normal Skin: No Skin Rashes, No Bruising, No Purpura, No Moist Desquamation, No Dry Desquamation, No Errythema, No Mild Errythema, No Moderate Errythema, No Severe Errythema, No Induration, No Other Laboratory Laboratory Tests 03/10/18 10:00 Laboratory Tests 01/02/18 09:15: Peripheral Blood Smear No 01/16/18 08:38: Neutrophils % (Manual) 76, Band Neutrophils % 0, Lymphocytes % (Manual) 5, Monocytes % (Manual) 16, Eosinophils % (Manual) 3, Basophils % (Manual) 0, Platelet Estimate Low, Polychromasia 1+, Macrocytosis 1+, Spherocytes 2+ 01/23/18 07:00: Uric Acid 3.8, Lactate Dehydrogenase 355 03/03/18 10:29: Magnesium Level 2.1 03/10/18 10:00: White Blood Count 5.0, Red Blood Count 4.53, Hemoglobin 13.3, Hematocrit 39.6, Mean Corpuscular Volume 87.4, Mean Corpuscular Hemoglobin 29.5, Mean Corpuscular Hemoglobin Concent 33.7, Red Cell Distribution Width 18.6, Platelet Count 112, Mean Platelet Volume 8.2, Neutrophils (%) (Auto) 63.2, Lymphocytes (% ) (Auto) 20.8, Monocytes (%) (Auto) 13.1, Eosinophils (%) (Auto) 2.0, Basophils (%) (Auto) 0.9, Nucleated RBC Relative Count (auto) 0.1, Neutrophils # (Auto) 3.1, Lymphocytes # (Auto) 1.0, Monocytes # (Auto) 0.6, Eosinophils # (Auto) 0.1 , Basophils # (Auto) 0.0, Nucleated RBC Absolute Count (auto) 0.00, Sodium Level 141, Potassium Level 3.8, Chloride Level 101, Carbon Dioxide Level 30, Blood Urea Nitrogen 14, Creatinine 1.00, Glomerular Filtration Rate Calc > 60.0 , Random Glucose 87, Calcium Level 9.0, Total Bilirubin 0.6, Aspartate Amino Transf (AST/SGOT) 30, Alanine Aminotransferase (ALT/SGPT) 29, Alkaline Phosphatase 129, Total Protein 6.6, Albumin 3.4 Radiology PLEASE SEE [facility] Microbiology PLEASE SEE [facility] Miscellaneous/Other PLESAE SEE [facility] Allergies & Medications Allergies: Coded Allergies: Iodinated Contrast Media - IV Dye (Verified Allergy, Mild, RASH, 06/17/15) Home Meds Reported Medications Sodium Chloride (SODIUM CHLORIDE) 1 Gm Tab, 1 TAB PO TID, TAB 03/10/18 Potassium Chloride (POTASSIUM CHLORIDE) 20 Meq Tab.er.prt, 1 TAB PO QDAY 03/10/18 Magnesium Hydroxide (MILK OF MAGNESIA) 400 Mg/5 Ml Oral.susp, 250 MG PO BID, BOTTLE 03/10/18 Furosemide (LASIX) 20 Mg Tablet, 1 TAB PO BID, TAB 03/10/18 Diltiazem Hcl (DILTIAZEM HCL) 120 Mg Tablet, 1 TAB PO BID 03/10/18 Apixaban (ELIQUIS) 5 Mg Tablet, 1 TAB PO BID 10/09/17 Pravastatin Sodium (Pravachol) 10 Mg Tablet, 1 TAB PO QDAY, 0 Refills 05/21/11 Discontinued Reported Medications Loratadine/Pseudoephedrine (CLARITIN-D 24 HOUR TABLET) 1 Each Tab.er.24h, 1 EACH PO 11/27/17 Metoprolol Succinate (METOPROLOL SUCCINATE) 50 Mg Tab.er.24h, 1 TAB PO QDAY for Blood Pressure, TAB 08/15/15 Diltiazem Hcl (CARTIA XT) 180 Mg Cap.er.24h, 1 CAP PO BID, #180 CAP 3 Refills 08/06/14 Doxazosin Mesylate (Cardura) 8 Mg Tablet, 8 MG PO DAILY, 0 Refills 05/21/11 Hydrochlorothiazide (Hydrochlorothiazide) 50 Mg Tablet, 50 MG PO DAILY, 0 Refills 05/21/11 Assessment/Plan REASON FOR FOLLOW-UP VISIT 1. Stage III adenocarcinoma of left lung, status post resection and sequential adjuvant chemotherapy and radiation; in remission. 2. Diffuse large B cell lymphoma, undergoing chemotherapy. INTERIM HISTORY Mr. Armenta returns to the clinic for his lab check, and requested to speak to a provider.. He is accompanied by his . He is AA)X3 and hemodynamically stable, afebrile and vitals stable. Except Hear rate of 106 for which he is concern, and reports that is due for him not being on his Metoprolol. he reports fatigue for which he attributes to the fact of his elevated heart rate and fluid restriction. He recently completed six cycles of chemotherapy for his diffuse large B cell lymphoma. Unfortunately, after his sixth cycle of chemotherapy he was hospitalized for hyponatremia. He was subsequently discharged to a rehab facility in [place], where he stayed for about three weeks. He continues to feel tired in general and he continues to be frustrated with his lack of overall wellbeing, as is the usual case. He reports no fever. He has no noticed no new lumps or bumps. He is very frustrated with his current plan of fluid restriction and having to take salt tablets. He expresses skepticism that any of his chemotherapy for his lymphomas has "done the job". He requests that his fluid restriction and other variables, including his antihypertensives , regain stability after his discharge from rehab before he goes for another CT PET scan. REVIEW OF SYSTEMS Otherwise negative, and all systems were reviewed. ONCOLOGY HISTORY 1. 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 April 15, 2017, CT chest: No significant change from September 2016; previous left upper lobectomy without locally recurrent or measurable metastatic disease; small partially loculated left pleural effusion, moderate-sized hiatal hernia, moderate coronary artery and aortic valve calcification. * Stage IIIA (pT2a N2 M0) adenocarcinoma of the left upper lobe, status post left upper lobectomy with mediastinal sampling. A MET splice site variant is present (exon 14) * Medical Oncologist: Dr. Kelly. * Radiation Oncologist: Dr. Shaikh. * Cardiothoracic Surgeon: Dr. Zavala. * Satellite Tv Installer: Dr. Carballo. - April 03, 2015 CT Chest: Left upper lobe mass abutting left superior mediastinum and upper left hilum with mildly prominent left hilar lymph nodes, borderline prominent mediastinal lymph nodes. - April 20, 2015: Bronchoscopy. Pathology: Subcarinal lymph node negative, hilar lymph node negative, left upper lobe brushing consistent with adenocarcinoma, left upper lobe needle aspirate consistent with adenocarcinoma. - April 25, 2015 CT-PET: Spiculated mass of the medial left upper lobe measuring 3 x 4.6 cm, SUV = 21.4. Left suprahilar lymph node with an SUV of 9.6 , but no hypermetabolic mediastinal lymphadenopathy and no evidence of metastatic disease. - May 11, 2015: Left upper lobectomy with mediastinal sampling complicated by pneumothorax. 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 Perineural invasion was present, however. One peribronchial lymph node was positive and one AP window lymph node was positive (2 of 20 lymph nodes total). Surgical stage: pT2a pN0 cM0. Molecular profiling: ALK, EGFR, BRAF, and HER2/dayne are negative. The sample was positive for a KRAS mutation as well as a MET splice site variant (exon 14). - July 18, 2015: Initiation of adjuvant carboplatin/paclitaxel with plan for two cycles, followed by adjuvant radiation therapy. All treatment was complete in September 2015. - January 02, 2016 CT-PET: Interval left lobectomy, moderate left pleural effusion ; no evidence of residual or metastatic glucose-active disease; minimal ascites. - April 13, 2016 CT Chest: Postop changes to the left lung, moderate left pleural effusion; no evidence of recurrent disease. - October 15, 2016 CT Chest: Stable postoperative changes of left upper lobectomy. No evidence of recurrent lung carcinoma or metastatic disease. There is a large gastric hiatal hernia. - September 10, 2017 CT PET Scan: Interval development of multifocal areas of hypermetabolic metastatic disease; multiple hypermetabolic subcutaneous nodules within chest; interval development of hypermetabolic left neck base lymph node, right cardiophrenic angle lymph nodes; ill-defined curvilinear soft tissue anterior to left heart with new hypermetabolic activity; new osseous metastasis within proximal left humerus and multiple ribs; sclerosis within right cricoid cartilage with low level metabolic uptake; post surgical changes from left upper lobectomy. 2. Diffuse large B cell lymphoma. - Diagnosis made by way of biopsy of subcutaneous nodule that had presented on follow-up imaging for surveillance of his lung cancer. - Status post bone marrow biopsy that shows no involvement of diffuse large B cell lymphoma. - September 2015: Initiation of chemotherapy with R-CVP for cycle one. Cycle two, R-CHOP, has now been administered. Cycle five of chemotherapy has been completed. - December 2015: Completion of his sixth cycle of chemotherapy. All cycles except cycle two were R-CVP. PAST MEDICAL HISTORY 1. Hyperlipidemia. 2. Hypertension. 3. History of paroxysmal atrial fibrillation. 4. Gastroesophageal reflux disease with hiatal hernia. 5. History of reflux esophagitis. 6. History of renal insufficiency. 7. BPH. 8. Stage 3 chronic kidney disease. 9. History of nocturia. CURRENT MEDICATIONS The patient reports resuming all his medications as prescribed except for Metoprolol, for which he usually takes 50mg PO daily. ALLERGIES IV CONTRAST DYE, which reportedly causes rash. VITAL SIGNS Temperature is 97.3. Blood pressure 126/86. Heart rate is 106. Respirations 16. Oxygen saturation 97% on room air. Weight is 72.3 kg. PHYSICAL EXAMINATION GENERAL: Patient is alert and oriented x 3, in no apparent distress, sitting in the exam room chair. He is interactive but not in a good mood. HEENT: Exam reveals anicteric sclerae. NEUROLOGIC: Exam is grossly nonfocal, and his gait is normal. EXTREMITIES: Exam reveals no clubbing or cyanosis but he does have edema of the bilateral lower extremities. SKIN: Exam reveals no concerning rash or lesion. LABORATORY STUDIES [facility]. ASSESSMENT AND PLAN 1. Diffuse large B cell lymphoma. Geovany has now completed six cycles of chemotherapy for his lymphoma. Treatment Plan reinforced as discussed on 03/05/18 of the visit with Dr. Kelly plan moving forward, which will be to have him go for a CT/PET scan. I will get in touch with dr. Kelly to review as to when and if indicated to resume his Metoprolol that was discontinued during rehab encounter due to low blood pressure. He requests that I be in touch with both cardiology and nephrology for further management of his medications as well as his fluid restriction, which has become nearly intolerable for him. Labs reviewed today and are stable and Na+ Normalized at 141on 6/11/18. we will address his Metoprolol, and fluid restriction. -We will have him return Return to clinic as needed for any new concerns, otherwise we will see him end of this month with CT/PET scan to review at that time. Hyponatremia, Na+ Normalized at 141on 03/10/18. patient instructed to continue on his fluid restriction and sodium tablets until further instructions. Stable and asymptomatic Tachycardia heart rate of 106, Hx of Afib previous at Hr 105. patient is on Cardizem 240mg BID and Eliquis 5mg Daily. Denies chest pain, SOB, diaphoresis. Plan is to resume his Metoprolol. 2. Stage IIIA lung adenocarcinoma. Again, we will await the results of his upcoming CT/PET scan to assess for any evidence of lung cancer recurrence. I spent 30 minutes of time face to face with the patient and his today, and 25 minutes of this was spent in direct counseling and coordination of care. NORA JASON, ONC Mar 10, 2018 11:36
[2018-03-17 10:41] LABS: PLATELET COUNT, AUTOMATED 137 K/uL (150-450)
[2018-03-17 12:42] VITALS: BP 118/86
[2018-03-18 16:27] VITALS: BP 125/83
--- NOTE | 2018-03-19 19:51 | ONCOLOGY FOLLOW UP NOTE ---
EVENT DATE: March 18, 2018 REASON FOR FOLLOW-UP VISIT 1. Stage III adenocarcinoma of left lung, status post resection and sequential adjuvant chemotherapy and radiation; in remission. 2. Diffuse large B cell lymphoma, undergoing chemotherapy. INTERIM HISTORY Geovany returns to clinic for a followup visit today. Since our last visit, he has established care with Dr. Andrew here in [place]. There are adjustments being made to his medications. In general, Geovany continues to not feel particularly well. He has some ongoing fatigue and some aches and pains. He does not have a lot of endurance. He continues on his fluid restriction. He has cut back on his sodium pills. He had labs drawn today. He is here to review the results. He has not yet gone for a CT PET scan. He denies fevers, chills, and sweats. His appetite has been fair. He has had no abnormal bruising or bleeding. REVIEW OF SYSTEMS Otherwise negative in all systems reviewed. ONCOLOGY HISTORY 1. 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 April 15, 2017, CT chest: No significant change from September 2016; previous left upper lobectomy without locally recurrent or measurable metastatic disease; small partially loculated left pleural effusion, moderate-sized hiatal hernia, moderate coronary artery and aortic valve calcification. * Stage IIIA (pT2a N2 M0) adenocarcinoma of the left upper lobe, status post left upper lobectomy with mediastinal sampling. A MET splice site variant is present (exon 14) * Medical Oncologist: Dr. Kelly. * Radiation Oncologist: Dr. Shaikh. * Cardiothoracic Surgeon: Dr. Zavala. * Technical Maintenance Technician: Dr. Carballo. - April 03, 2015 CT Chest: Left upper lobe mass abutting left superior mediastinum and upper left hilum with mildly prominent left hilar lymph nodes, borderline prominent mediastinal lymph nodes. - April 20, 2015: Bronchoscopy. Pathology: Subcarinal lymph node negative, hilar lymph node negative, left upper lobe brushing consistent with adenocarcinoma, left upper lobe needle aspirate consistent with adenocarcinoma. - April 25, 2015 CT-PET: Spiculated mass of the medial left upper lobe measuring 3 x 4.6 cm, SUV = 21.4. Left suprahilar lymph node with an SUV of 9.6 , but no hypermetabolic mediastinal lymphadenopathy and no evidence of metastatic disease. - May 11, 2015: Left upper lobectomy with mediastinal sampling complicated by pneumothorax. 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 Perineural invasion was present, however. One peribronchial lymph node was positive and one AP window lymph node was positive (2 of 20 lymph nodes total). Surgical stage: pT2a pN0 cM0. Molecular profiling: ALK, EGFR, BRAF, and HER2/dayne are negative. The sample was positive for a KRAS mutation as well as a MET splice site variant (exon 14). - July 18, 2015: Initiation of adjuvant carboplatin/paclitaxel with plan for two cycles, followed by adjuvant radiation therapy. All treatment was complete in September 2015. - January 02, 2016 CT-PET: Interval left lobectomy, moderate left pleural effusion ; no evidence of residual or metastatic glucose-active disease; minimal ascites. - April 13, 2016 CT Chest: Postop changes to the left lung, moderate left pleural effusion; no evidence of recurrent disease. - October 15, 2016 CT Chest: Stable postoperative changes of left upper lobectomy. No evidence of recurrent lung carcinoma or metastatic disease. There is a large gastric hiatal hernia. - September 10, 2017 CT PET Scan: Interval development of multifocal areas of hypermetabolic metastatic disease; multiple hypermetabolic subcutaneous nodules within chest; interval development of hypermetabolic left neck base lymph node, right cardiophrenic angle lymph nodes; ill-defined curvilinear soft tissue anterior to left heart with new hypermetabolic activity; new osseous metastasis within proximal left humerus and multiple ribs; sclerosis within right cricoid cartilage with low level metabolic uptake; post surgical changes from left upper lobectomy. 2. Diffuse large B cell lymphoma. - Diagnosis made by way of biopsy of subcutaneous nodule that had presented on follow-up imaging for surveillance of his lung cancer. - Status post bone marrow biopsy that shows no involvement of diffuse large B cell lymphoma. - September 2015: Initiation of chemotherapy with R-CVP for cycle one. Cycle two, R-CHOP, has now been administered. Cycle five of chemotherapy has been completed. - December 2015: Completion of his sixth cycle of chemotherapy. All cycles except cycle two were R-CVP. PAST MEDICAL HISTORY 1. Hyperlipidemia. 2. Hypertension. 3. History of paroxysmal atrial fibrillation. 4. Gastroesophageal reflux disease with hiatal hernia. 5. History of reflux esophagitis. 6. History of renal insufficiency. 7. BPH. 8. Stage 3 chronic kidney disease. 9. History of nocturia. CURRENT MEDICATIONS 1. Sodium chloride tablets. 2. Potassium. 3. Lasix. 4. Diltiazem. 5. Apixaban. 6. Pravastatin. 7. Claritin D p.r.n. 8. Metoprolol. 9. Doxazosin. 10. Hydrochlorothiazide (per his printed medication list today). ALLERGIES IV CONTRAST DYE, which reportedly causes rash. PHYSICAL EXAMINATION VITAL SIGNS: Temperature is 97.5, blood pressure 125/83, heart rate is 86, respirations 16, oxygen saturation is 91% on room air. Weight is 73.4 kg. GENERAL: Patient is alert and oriented times three, no apparent distress, sitting in the exam room chair. He is thin. He is interactive. HEENT: Anicteric sclerae. NEUROLOGIC: Grossly nonfocal, although his gait is slow and antalgic. EXTREMITIES: Some ongoing peripheral edema of the lower extremities without erythema or tenderness. SKIN: No concerning rash or lesions. LABORATORY STUDIES Reviewed per the [facility] record. ASSESSMENT AND PLAN 1. Diffuse large B cell lymphoma. I had a good visit with Geovany and his today. He had a very positive experience with Dr. Andrew in the clinic recently , and he feels that things are on the right track in terms of his sodium and blood pressure management. We spent time today discussing his laboratory studies as well as his blood pressure trends over time. He continues to feel fatigued and frustrated. He has not yet gone for a followup CT PET scan. He is open-minded to doing this, and he would like to have a CT PET scan in the morning and visit with me at my [facility] clinic later that day. This is certainly reasonable. We will work on getting this arranged. He does not have any new or focal symptoms to suggest recurrence of malignancy at this time. 2. Stage IIIA lung adenocarcinoma. We will await the results of his upcoming CT PET scan. 3. Hyponatremia. His sodium is currently normal. He does continue on sodium tablets as well as fluid restriction. I appreciate Dr. Andrew's attention to this and his management. 4. Hypertension, atrial fibrillation. Help with this from Dr. Andrew, Renal, and Cardiology is also appreciated. [facility]
[~2018-03-24] VITALS: Ht 172.7 cm; Wt 73.4 kg
[~2018-03-24 10:00] MED LIST changes: -ASPI-816 PO; +ASPI-870 PO; -CYCLOPHOSPHAMIDE IVPB PRN; +DILT-145 PO; +DILT120T13 PO; +DILT240C2 PO; +DOCU-202 PO; -DOXOrubicin 50 MG/25 ML VIAL IVP ONE; +FURO20TA19 PO; +MOM PO; +POTA20TA94 PO; +SENN-90 PO; +SODCTAB PO; +WATER FOR INJ,STERILE 20 ML IVP PRN; -WATER STERILE 10 ML VIAL IVP PRN; -[UNRECOGNIZED DRUG - OTHER] IVPB PRN; -predniSONE 20 MG TAB PO ONE; +riTUXimab 500 MG/50 ML SDV 500 MG, riTUXimab 100 MG/10 ML SDV 200 MG in NS(*) 0.9% 500 ... IV ONE; -riTUXimab 500 MG/50 ML SDV 500 MG, riTUXimab 100 MG/10 ML SDV 200 MG in NS(*) 0.9% 500 ... IV PRN; -vinCRIStine SULF 2 MG/2ML VIAL 2 MG in NS(*) 0.9% 50 ML BAG 50 ML IVP PRN
[2018-03-24 10:39] LABS: PLATELET COUNT, AUTOMATED 140 K/uL (150-450)
[2018-03-25] MEDS ORDERED: DILT240C PO (16:49)
[2018-03-25] MEDS ORDERED: TAMS0.4C70 PO (16:54)
== END 2018-04-01 ==
LOC: SPU 10:00
PROVIDERS: ATTEND Internal Medicine Medical Oncology
DX: Z51.11 Encounter for antineoplastic chemotherapy (principal); C83.30 Diffuse large B-cell lymphoma, unspecified site; C34.92 Malignant neoplasm of unspecified part of left bronchus or lung; I10 Essential (primary) hypertension; E78.00 Pure hypercholesterolemia, unspecified; R53.83 Other fatigue; I48.91 Unspecified atrial fibrillation; E87.1 Hypo-osmolality and hyponatremia
CPT/HCPCS: 36415; 36591; 83615; 83735; 84550; 85025; 85027; 96361; 96367; 96375; 96411; 96413; 96415; 96417; A9270; G0463; J1200; J1453; J1642; J2469; J7030; J7040; J7050; J9070; J9310; J9370; 82040; 82247; 82310; 82374; 82435; 82565; 82947; 84075; 84132; 84155; 84295; 84450; 84460; 84520; 99212

== ENCOUNTER → 2018-04-15 | Outpatient (CLI) | payer MEDICARE, BC ==
[~2018-04-15] MED LIST changes: -ALTEPLASE RECOMB 2 MG VIAL IVP PRN; -CYCLOPHOSPHAMIDE IVPB ONE; -DEXTROSE 5%(*) 100 ML BAG 100 ML IVPB PRN; +DILT240C PO; -LIDOCAINE/SOD BICARB 8.4% SYR ID PRN; -NS(*) 0.9% 100 ML BAG 100 ML IVPB PRN; -SODIUM CHLORIDE 0.9% IVP ONE; +TAMS0.4C70 PO; -VINCRISTINE IVP ONE; -WATER FOR INJ,STERILE 20 ML IVP PRN; -[UNRECOGNIZED DRUG - OTHER] IVPB ONE; -riTUXimab 500 MG/50 ML SDV 500 MG, riTUXimab 100 MG/10 ML SDV 200 MG in NS(*) 0.9% 1000... IV ONE; -riTUXimab 500 MG/50 ML SDV 500 MG, riTUXimab 100 MG/10 ML SDV 200 MG in NS(*) 0.9% 500 ... IV ONE
--- NOTE | 2018-04-15 11:35 | RADIOLOGY IMAGING REPORT ---
FAC[place]: [facility] [place]IENT NAME: Yung Jha : 1935 MR: [id number] V: [id number] EXAM DATE: ORDERING PHYSICIAN: MARIO SORTO TECHNOLOGIST: Location: [facility] Patient: Yung Jha : 1935 Visit/Account:[id number] Date of Sevice: 04/15/2018 CHEST PA AND LAT HISTORY: History of lung cancer left side. COMPARISON: CT scan chest November 19, 2017, 2017. FINDINGS: Cardiomediastinal contours: Heart and mediastinal structures are shifted to the left following lobect pablo on the left side. There is a residual left pleural effusion. There is a large hiatal hernia. T he aortic arch is calcified. Lungs and pleura: There is volume loss on the left side related to prior left lobectomy. There is re sidual loculated pleural fluid around the entire left chest. A recurrent mass cannot be seen. Bones/soft tissues: There are no findings of a fracture. Catheters: Right internal jugular vein chest port with catheter tip in the distal SVC. IMPRESSION: 1. Volume loss on the left side related to prior lobectomy. There is shift of the heart and mediast inal structures to the left. 2. There is parenchymal scarring in the left lung base but no recurrent mass is seen. Irregularity of the left hilum could be related to prior surgery. 3. Compensatory hyperinflation of the right lung. 4. Right chest port. 5. Large hiatal hernia. 2. Loculated pleural fluid on the left side. Report Dictated By: Justo Panchal MD at 04/15/2018 11:27 AM Report E-Signed By: Justo Panchal MD at 04/15/2018 11:30 AM WSN:[email or web address]
--- NOTE | 2018-04-15 11:55 | EKG ---
FACILITY: [facility] - [place] PATIENT NAME: OSMAR LEIVA : [id number] MR: [id number] V: [id number] EXAM DATE: ORDERING PHYSICIAN: MARIO SORTO TECHNOLOGIST: KANDY BAXTER Test Reason : AFIB Blood Pressure : / mmHG Vent. Rate : 068 BPM Atrial Rate : 202 BPM P-R Int : 000 ms QRS Dur : 138 ms QT Int : 438 ms P-R-T Axes : 000 082 -37 degrees QTc Int : 465 ms Atrial fibrillation Right bundle branch block Abnormal ECG No previous ECGs available Referred By: Confirmed By:
== END ==
LOC: RESP 10:55
PROVIDERS: ATTEND Internal Medicine
DX: R60.0 Localized edema (principal); I48.91 Unspecified atrial fibrillation; J44.9 Chronic obstructive pulmonary disease, unspecified; E83.42 Hypomagnesemia
CPT/HCPCS: 71046

== ENCOUNTER → 2018-05-28 | Outpatient (CLI) | payer MEDICARE, BC ==
[~2018-05-28] MED LIST changes: +POTA25TA28 PO
== END ==
LOC: SPU 08:52
PROVIDERS: ATTEND Internal Medicine Nephrology
DX: N18.3 Chronic kidney disease, stage 3 (moderate) (principal); I12.9 Hypertensive chronic kidney disease with stage 1 through stage 4 chronic kidney disease, or unspecified chronic kidney disease; I48.91 Unspecified atrial fibrillation; C34.90 Malignant neoplasm of unspecified part of unspecified bronchus or lung; R53.83 Other fatigue
CPT/HCPCS: 82570; 84156

== ENCOUNTER → 2018-06-04 | Outpatient (CLI) | payer MEDICARE, BC | LOC: SPU 09:23 | PROVIDERS: ATTEND Internal Medicine Nephrology | DX: R80.9 Proteinuria, unspecified (principal); C85.90 Non-Hodgkin lymphoma, unspecified, unspecified site | CPT/HCPCS: 83883; 84156; 86334; 86335 ==

== ENCOUNTER → 2018-06-25 | Outpatient (CLI) | payer MEDICARE, BC ==
[2018-06-25 09:35] VITALS: BP 126/84
== END ==
LOC: SPU 07:27
PROVIDERS: ATTEND Internal Medicine
DX: Z12.5 Encounter for screening for malignant neoplasm of prostate (principal); C34.92 Malignant neoplasm of unspecified part of left bronchus or lung; E87.1 Hypo-osmolality and hyponatremia
CPT/HCPCS: 36415; 84153

== ENCOUNTER 2018-07-02 12:00 | Outpatient (RCR) | payer MEDICARE, BC ==
[2018-04-07 12:33] VITALS: BP 140/91
[2018-04-07 12:43] LABS: PLATELET COUNT, AUTOMATED 134 K/uL (150-450)
[2018-04-14 11:16] LABS: PLATELET COUNT, AUTOMATED 129 K/uL (150-450)
[2018-04-14 15:02] VITALS: BP 149/82
[2018-04-17 16:29] VITALS: BP 112/67
--- NOTE | 2018-04-17 21:32 | ONCOLOGY FOLLOW UP NOTE ---
EVENT DATE: April 17, 2018 REASON FOR FOLLOWUP 1. 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 2. Diffuse large B cell lymphoma, status post R-CHOP/R-CVP chemotherapy, six cycles complete with evidence of residual disease on follow-up CT PET scan post completion of chemo. INTERIM HISTORY Geovany returns to clinic for a follow-up visit today. He is accompanied by his . Since our last visit, he reports that he had been started on amiodarone, but immediately after taking the first pill, he felt short of breath, and his oxygen levels fell. He has also had some ongoing issues with tachycardia, noting that with sometimes minimal activity, his heart rate will increase. He feels tired. He has had ongoing arthralgias. He is wearing oxygen again today. He reports no chest pain currently. He denies fever and productive cough. He reports no significant abdominal pain, no recent changes in bowel or bladder habits. REVIEW OF SYSTEMS Otherwise negative, and all systems were reviewed. ONCOLOGY HISTORY 1. 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 April 15, 2017, CT chest: No significant change from September 2016; previous left upper lobectomy without locally recurrent or measurable metastatic disease; small partially loculated left pleural effusion, moderate-sized hiatal hernia, moderate coronary artery and aortic valve calcification. * Stage IIIA (pT2a N2 M0) adenocarcinoma of the left upper lobe, status post left upper lobectomy with mediastinal sampling. A MET splice site variant is present (exon 14) * Medical Oncologist: Dr. Kelly. * Radiation Oncologist: Dr. Shaikh. * Cardiothoracic Surgeon: Dr. Zavala. * Publication Designer: Dr. Carballo. - April 03, 2015 CT Chest: Left upper lobe mass abutting left superior mediastinum and upper left hilum with mildly prominent left hilar lymph nodes, borderline prominent mediastinal lymph nodes. - April 20, 2015: Bronchoscopy. Pathology: Subcarinal lymph node negative, hilar lymph node negative, left upper lobe brushing consistent with adenocarcinoma, left upper lobe needle aspirate consistent with adenocarcinoma. - April 25, 2015 CT-PET: Spiculated mass of the medial left upper lobe measuring 3 x 4.6 cm, SUV = 21.4. Left suprahilar lymph node with an SUV of 9.6 , but no hypermetabolic mediastinal lymphadenopathy and no evidence of metastatic disease. - May 11, 2015: Left upper lobectomy with mediastinal sampling complicated by pneumothorax. 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 Perineural invasion was present, however. One peribronchial lymph node was positive and one AP window lymph node was positive (2 of 20 lymph nodes total). Surgical stage: pT2a pN0 cM0. Molecular profiling: ALK, EGFR, BRAF, and HER2/dayne are negative. The sample was positive for a KRAS mutation as well as a MET splice site variant (exon 14). - July 18, 2015: Initiation of adjuvant carboplatin/paclitaxel with plan for two cycles, followed by adjuvant radiation therapy. All treatment was complete in September 2015. - January 02, 2016 CT-PET: Interval left lobectomy, moderate left pleural effusion ; no evidence of residual or metastatic glucose-active disease; minimal ascites. - April 13, 2016 CT Chest: Postop changes to the left lung, moderate left pleural effusion; no evidence of recurrent disease. - October 15, 2016 CT Chest: Stable postoperative changes of left upper lobectomy. No evidence of recurrent lung carcinoma or metastatic disease. There is a large gastric hiatal hernia. - September 10, 2017 CT PET Scan: Interval development of multifocal areas of hypermetabolic metastatic disease; multiple hypermetabolic subcutaneous nodules within chest; interval development of hypermetabolic left neck base lymph node, right cardiophrenic angle lymph nodes; ill-defined curvilinear soft tissue anterior to left heart with new hypermetabolic activity; new osseous metastasis within proximal left humerus and multiple ribs; sclerosis within right cricoid cartilage with low level metabolic uptake; post surgical changes from left upper lobectomy. 2. Diffuse large B cell lymphoma. - Diagnosis made by way of biopsy of subcutaneous nodule that had presented on follow-up imaging for surveillance of his lung cancer. - Status post bone marrow biopsy that shows no involvement of diffuse large B cell lymphoma. - September 2015: Initiation of chemotherapy with R-CVP for cycle one. Cycle two, R-CHOP, has now been administered. Cycle five of chemotherapy has been completed. - December 2015: Completion of his sixth cycle of chemotherapy. All cycles except cycle two were R-CVP. PAST MEDICAL HISTORY 1. Hyperlipidemia. 2. Hypertension. 3. History of paroxysmal atrial fibrillation. 4. Gastroesophageal reflux disease with hiatal hernia. 5. History of reflux esophagitis. 6. History of renal insufficiency. 7. BPH. 8. Stage 3 chronic kidney disease. 9. History of nocturia. CURRENT MEDICATIONS 1. Sodium chloride tablets. 2. Potassium. 3. Lasix. 4. Diltiazem. 5. Apixaban. 6. Pravastatin. 7. Claritin D p.r.n. 8. Metoprolol. 9. Doxazosin. 10. Hydrochlorothiazide (per his printed medication list today). ALLERGIES IV CONTRAST DYE, which reportedly causes rash. VITAL SIGNS Temperature is 97.3, blood pressure 112/67, heart rate is 80, respirations 16, oxygen saturation is 90% on 2L nasal cannula. PHYSICAL EXAMINATION GENERAL: Patient is alert and oriented times three, in no apparent distress, sitting in the exam room chair. He is thin. He is interactive and pleasant today. HEENT: Anicteric sclerae. He is sandy oxygen by nasal cannula. NEUROLOGIC: Grossly nonfocal, although his gait is somewhat slow and shuffling. EXTREMITIES: Exam reveals significant edema of the bilateral lower extremities , but no erythema or particular tenderness to palpation. SKIN: No concerning rash or lesions. LABORATORY STUDIES Reviewed per the [facility] record. IMAGING None today. ASSESSMENT AND PLAN 1. Diffuse large B cell lymphoma. We spent time today reviewing his prior treatment course with R-CHOP for one cycle and subsequent R-CVP cycles to complete a total of six cycles. We discussed his prior CT PET scan findings, and that his case was reviewed at our multidisciplinary conference in [place] this last week. There was agreement that it is impossible to determine whether or not the hypermetabolic findings on his CT PET scan are due to lymphoma or to recurrent lung cancer. Given the fact that all of these areas had responded to his lymphoma therapy, but eventually started to reemerge argues in favor of lymphoma. He does have a hypermetabolic node in the chest, however, that could potentially represent recurrent lung cancer. We discussed options for future treatment in the context of potential need for additional tissue diagnosis. He is on anticoagulation that would need to be held, but I would again query the utility of bronchoscopy and biopsy of this presumed hypermetabolic lymph node in the chest. Another option would be to biopsy the rib, but this area did definitively improve with lymphoma therapy. As discussed , I will discuss his situation further with Pulmonary. He has seen Dr. Carballo in the past, so I will contact him. I will be back in touch with Geovany as soon as a decision is made about next steps. If there is no evidence of lung cancer recurrence, I do think he would potentially tolerate bendamustine and rituximab , and we did discuss these agents today. He has already received Rituxan as part of his prior therapy. Bendamustine could prove to be better tolerated that his prior chemotherapy. Geovany is open minded to this. He did mention today that he is open to considering more therapy, but he could potentially be close to saying no more treatment. A lot of this will depend on his overall condition over the coming weeks and months. Geovany also stated today that some days he wishes that he'd go to sleep and not wake up. He does not seem to have SI or an active plan. Counseling has been discussed with Geovany. 2. Stage III lung adenocarcinoma. As above. I spent a total of 30 minutes of time face to face with the patient and his today. Twenty-five minutes of this was spent in direct counseling and coordination of care. TORI
[2018-04-21 11:02] VITALS: BP 114/80
[2018-04-21 11:08] LABS: PLATELET COUNT, AUTOMATED 146 K/uL (150-450)
[2018-04-30 08:48] VITALS: BP 135/82
[2018-04-30] MEDS: LIDOCAINE/SOD BICARB 8.4% SYR ID PRN (09:13)
[2018-04-30] MEDS: NS(*) 0.9% 500 ML BAG 500 ML IV PRN (09:14)
[2018-04-30 09:15] LABS: PLATELET COUNT, AUTOMATED 142 K/uL (150-450)
[2018-04-30] MEDS: diphenhydrAMINE 50 MG/ML VIAL IVP PRN (09:24)
[2018-04-30] MEDS: ACETAMINOPHEN 325 MG TAB PO PRN (10:45)
[2018-04-30] MEDS: DEXAMETHASONE SOD PHOS 10MG/ML IVP PRN (10:47)
[2018-04-30] MEDS: PALONOSETRON 0.25 MG/5 ML VIAL IVP PRN (10:48)
--- NOTE | 2018-04-30 14:02 | RADIOLOGY IMAGING REPORT ---
FACILITY: [facility] PATIENT NAME: Yung Jha : 1935 MR: [id number] V: [id number] EXAM DATE: ORDERING PHYSICIAN: DURGA TELLEZ TECHNOLOGIST: Location: [facility] Patient: Yung Jha : 1935 Visit/Account:[id number] Date of Sevice: 04/30/2018 CHEST/AB/PELV W/WO CONTRAST HISTORY: B-cell lymphoma ADDITIONAL HISTORY: None. TECHNIQUE: Pre and post administration of IV contrast axial images acquired through the chest abdome n and pelvis during the portal venous phase. Coronal and sagittal reformatting was also performed. D ose Lowering Technique One of the following dose optimization techniques was utilized in the performance of this exam: Autom ated exposure control; adjustment of the mA and/or kV according to the patient's size; or use of an i terative reconstruction technique. Specific details can be referenced in the facility's radiology C T exam operational policy. CONTRAST: 75 mL Isovue-370 COMPARISON: CT chest separate 2017 FINDINGS: CHEST: Lungs/Pleura: Moderate left pleural effusion appears relatively unchanged... Small right pleural ef fusion is slightly increased Postsurgical changes about the left hilum with adjacent soft tissue density material appears similar to the prior study. Patchy groundglass opacities in the right lung are improved Mediastinum/lymph nodes: There are calcified pretracheal and right hilar lymph nodes present Heart/vessels: At least moderate calcifications are seen in the thoracic aorta and branch vessels in cluding the coronary arteries Bones/soft tissues: No aggressive appearing bone lesions are seen ABDOMEN AND PELVIS: Hepatobiliary: Liver appears mildly heterogeneous although no focal liver lesions are seen Spleen: Calcified granulomas Pancreas: Negative. Adrenals: Negative. Kidneys ureters and bladder : Negative. Genitalia: Prostate gland appears heterogeneous is enlarged and impinges upon the floor the bladder GI: There Is a large hiatal hernia Vessels/spaces/nodes: There are extensive vascular calcifications throughout the chest abdomen and p sridhar. Bones/soft tissues: No aggressive appearing bone lesions are seen Additional findings: None pertinent. IMPRESSION: Moderate left pleural effusion and postoperative changes the left lung appear relatively unchanged Small right pleural effusion is slightly increased Calcified pretracheal and right hilar lymph nodes are again noted in addition to calcified granulomas in the spleen Moderate to severe calcifications throughout the chest abdomen and pelvis Large hiatal hernia Prostate gland is heterogeneous and enlarged impinging upon the floor the bladder. Report Dictated By: Tamara Flores MD at 04/30/2018 1:34 PM Report E-Signed By: Tamara Flores MD at 04/30/2018 1:57 PM [id number]:[email or web address]
[2018-04-30] MEDS: NS 0.9% IVPB PRN (15:22)
[2018-04-30] MEDS: BENDAMUSTINE HCL IVPB PRN (15:22)
[2018-04-30 15:35] VITALS: BP 116/73
[2018-04-30] MEDS: HEPARIN FLSH (PORT) 500 UN/5ML IVP PRN (15:37)
--- NOTE | 2018-04-30 16:16 | Pharmacy Note ---
Pharmacy Note Note: Clinical Pharmacist Note: Chemotherapy Education Visit Date: 04/30/18 Chemotherapy Regimen: Rituximab + Bendamustine The regimen includes rituximab on day 1, bendamustine days 1 and 2 given every 28 days The schedule of treatment administration was explained in detail to the patient in regards to lab visits, timing and sequence of premedications and chemotherapy , followed by any supportive medications to be given. Discussed the purpose of the port and why we administer chemotherapy through a port. Port placed prior to chemo ed appointment. Patient's diagnosis, treatment plan, and intent of treatment along with goals are outlined on the signed consent form, that was reviewed and signed at the end of this appointment. The goal is control of disease with treatment. The potential for drug/drug interaction and drug/food interactions were explained to the patient. Patient was instructed to report any new medications to the office. A medication reconciliation was reviewed by the pharmacist today. We reviewed and discussed toxicities of supportive care medications and how to appropriately use supportive medications including the schedule of anti- emetics. These medications include the following: Take home medications: none prescribed, patient has anti-emetics at home already, will call us if having any difficulty, will also check in on day 2 Pre-medications: palonosetron, dexamethasone, acetaminophen and diphenhydramine Supportive Medications: none at this time, patient refused pegfilgrastim, will watch counts closely We have also discussed the potential for long and short term side effects of chemotherapy including, but not limited to the side effects outlined below: -Low WBCs or neutropenia: Patient may experience bone marrow toxicity that would increase their risk for infection. Patient is aware to look for signs and symptoms of infection (e.g. fever of higher than 100.4F, chills, sore throat , etc.) and knows what number to call and when to contact the clinic. Advised patient of things they can do such as wash hands with soap and water often, avoid people who are sick, and avoid crowds during times of low blood counts ( typically 7-10 days post chemotherapy). Discussed the need for pegfilgrastim with dose dense AC to reduce the risk of neutropenia. - Low RBCs or anemia: Anemia is when you don't have enough red blood cells to carry oxygen through your body, which causes fatigue, weakness, lightheadedness , pale skin, SOB, or headaches. Discussed the importance of getting enough restful sleep at night and eating a diet rich in iron. Lab values will be closely monitored to check your RBCs. Advised patient to contact the clinic if they have a fast heart rate, dizziness, or lightheadedness. -Low platelet counts or thrombocytopenia: Patient may experience low platelets which can lead to increased risk of bleeding, easy bruising, black or bloody stools, or small red or purple spots on the skin. Platelets help blood to clot and if your platelets are low enough, bleeding may not stop after a few minutes. Excessive bleeding or bruising, red spots on your skin or new onset headaches require a phone call to the clinic. - Fatigue (feeling tired): Some patients may experience fatigue, or feel tired , weak, low energy, drained or exhausted. You will experience fatigue after chemotherapy, but the amounts for each person and chemotherapy will differ. Advised patient to stay active as much as they can with light exercise, take short naps if needed, get a restful night of sleep, and eat a well-balanced diet. Call the clinic if you are unable to get out of bed or do typical daily activities, have shortness of breath, or have trouble walking small distances. -Nausea or vomiting: Most patients may experience some level of nausea ( feeling queasy or sick to your stomach) or vomiting. Advised patient to take their anti-nausea medications as prescribed, drink plenty of fluids, eat several small meals throughout the day, eat bland easy to digest foods, and speak to our line maintainer if they have questions. Call the clinic if the nausea or vomiting is not eased by your medications and lasts 12 hours or longer, or if unable to eat or drink, or keep medicines down. - Appetite changes (eating less or more): You may experience a decrease or increase in your appetite that might last a day, weeks or months. Advised patient to set a schedule for eating and drink high protein drinks to maintain calories. Ask your doctor or nurse for a line maintainer consult to help manage your appetite changes or if you have concerns about your appetite changes. Contact the clinic if you notice a change in weight and if you are unable to take in more than a few bites of food or sips of liquid at mealtimes. Favorite foods may also taste different or may not be pleasing. -Mouth sores and oral care (mucositis or stomatitis): Patient was informed that they may experience taste changes, dry mouth, and potential mouth sores due to the chemotherapy. The best way to prevent and treat mouth sores is to do routine mouth care each day. If mouth sores occur, use mouth rinses with baking soada, alst and warm water after meals and before bed (dissolve 2 TBSP of baking soda and 1/2 tsp of salt in 8 oz of warm water--swish and spit). Avoid mouthwashes with alcohol and spicy food if mouth sores exist. If dry mouth occurs, sucking on ice chips or sugar free hard candy can help. -Hepatotoxicity: There is a risk of toxicity to your liver. Your lab work will be watched closely to determine if this is occurring and any required dose adjustments will be made at that time. -Secondary Malignancies: There is a risk of secondary malignancies such as acute myelogenous leukemia (AML) and myelodysplastic syndromes (MDS) in patients that are treated with anthracyclines and typically occurs within 1-3 years of treatment. -Skin Problems: Some patients may experience a variety of symptoms including: rash, dry/cracked skin, red/inflammed skin, brittle/cracked/yellow nails, red/ blistering skin near the areas of radiation, sunburn easily, and itching. Advised patient that they can moisturize their skin daily, use sunscreen, use mild soaps when washing the skin and to avoid products with perfumes, dyes, or alcohol. Regarding fingernails specifically, patient is advised to keep their nails short and trimmed. -Edema: You may experience lower extremity swelling with this medication, typically in both extremities. Report any symptoms of redness, pain, or unilateral swelling. You may also accumulate fluid in your lungs resulting in shortness of breath and a decrease in exercise tolerance. -Extravasation: The patient is receiving an irritant with vesicant-like properties as part of their chemotherapy regimen. While the risk of extravasation with a port is very low, there is still a risk. Discussed what a vesicant is and that extravasation of a vesicant can lead to severe local tissue injury and necrosis requiring surgical intervention and possible skin grafting. Patient was educated to report any pain or burning at the port site ORI. -Infusion Reactions: The patient may experience an infusion reaction while either rituximab or bendamustine is infusing. Reactions usually occur within 30 to 120 minutes and may include hypotension, angioedema, bronchospasm, hypoxia , urticaria, and, in more severe cases, pulmonary infiltrates, acute respiratory distress syndrome, WI, ventricular fibrillation, cardiogenic shock, and/or anaphylactoid events. -Other Toxicities: Electrolyte changes, dehydration, weight loss, cough, fever : Patient will be monitored closely for toxicities listed. Lab work will be reviewed weekly and the patient will be notified with these changes and if there are changes, may need additional follow up and testing. Patient already has the Standard Chemotherapy Education Binder with appropriate phone numbers and we reviewed symptoms that would prompt a call to the clinic. Upcoming appointments were discussed and patient knows to follow up at the front elevator operator to get print outs of their schedule and the processes to change/ cancel an appointment. Consent was reviewed with the patient and signed in my presence. The treating physician will review and sign the consent. Allergies were reviewed: IV and oral contrast At the end of this discussion, the patient verbalized understanding of the provided education and information and all of his questions were answered to his satisfaction. Patient knows how to reach me if further questions or concerns come up. Time spent with the patient: 60 minutes, with all 60 minutes being spent counseling on the detailed information above. Doris Brito, PharmD, BCOP DORIS BRITO Apr 30, 2018 16:15
[2018-05-01 12:05] VITALS: BP 125/74
[2018-05-01] MEDS: LIDOCAINE/SOD BICARB 8.4% SYR ID PRN (12:11)
[2018-05-01] MEDS: NS(*) 0.9% 500 ML BAG 500 ML IV PRN (12:11)
[2018-05-01] MEDS: HEPARIN FLSH (PORT) 500 UN/5ML IVP PRN ×2 (12:13→13:08)
[2018-05-01] MEDS: DEXAMETHASONE SOD PHOS 10MG/ML IVP PRN (12:24)
[2018-05-01] MEDS: NS 0.9% IVPB PRN (12:47)
[2018-05-01] MEDS: BENDAMUSTINE HCL IVPB PRN (12:47)
[2018-05-01 13:05] VITALS: BP 101/61
[2018-05-07 11:22] VITALS: BP 125/81
[2018-05-07 11:43] LABS: PLATELET COUNT, AUTOMATED 142 K/uL (150-450)
[2018-05-14 14:18] VITALS: BP 114/72
[2018-05-14 14:21] LABS: PLATELET COUNT, AUTOMATED 127 K/uL (150-450)
[2018-05-21 14:06] VITALS: BP 122/81
[2018-05-21 14:33] LABS: PLATELET COUNT, AUTOMATED 139 K/uL (150-450)
--- NOTE | 2018-05-21 22:33 | ONCOLOGY FOLLOW UP NOTE ---
EVENT DATE: May 21, 2018 REASON FOR FOLLOWUP 1. 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 2. Diffuse large B cell lymphoma. a. Status post R-CHOP/R-CVP chemotherapy, six cycles complete with evidence of residual disease on followup CT PET scan post completion of chemo. b. Status post initiation of bendamustine and rituximab. INTERIM HISTORY Geovany returns to clinic for a followup visit today. He is accompanied by his . He reports that in general, his most recent chemotherapy experience has been much better than his prior. He does report some ongoing fatigue and generally feeling unwell, however. He is frustrated with his cognitive status, although he continues to read books regularly, and his has not noticed particular concerns in this regard. He denies fever. He reports no new pain. He has had no palpitations and no new shortness of breath. He reports lower extremity swelling, but no redness or pain. Nausea has been minimal. For the most part, he is happy about how things are going with this chemotherapy. REVIEW OF SYSTEMS Otherwise negative, and all systems were reviewed. ONCOLOGY HISTORY 1. 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 a. April 15, 2017, CT chest: No significant change from September 2016. Previous left upper lobectomy without locally recurrent or measurable metastatic disease. Small, partially loculated left pleural effusion. Moderate-sized hiatal hernia. Moderate coronary artery and aortic valve calcification. b. Stage IIIA (pT2a N2 M0) adenocarcinoma of the left upper lobe, status post left upper lobectomy with mediastinal sampling. 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 * Medical Oncologist: Dr. Kelly. * Radiation Oncologist: Dr. Shaikh. * Cardiothoracic Surgeon: Dr. Zavala. * Magnetic Prospecting Operator: Dr. Carballo. c. April 03, 2015 CT chest: Left upper lobe mass abutting left superior mediastinum and upper left hilum with mildly prominent left hilar lymph nodes and borderline prominent mediastinal lymph nodes. d. April 20, 2015: Bronchoscopy. Pathology: Subcarinal lymph node negative, hilar lymph node negative. Left upper lobe brushing consistent with adenocarcinoma. Left upper lobe needle aspirate consistent with adenocarcinoma. e. April 25, 2015, CT PET: Spiculated mass of the medial left upper lobe measuring 3 x 4.6 cm, SUV = 21.4. Left suprahilar lymph node with an SUV of 9.6, but no hypermetabolic mediastinal lymphadenopathy, and no evidence of metastatic disease. f. May 11, 2015: Left upper lobectomy with mediastinal sampling, complicated by pneumothorax. 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 Perineural invasion was present, however. One peribronchial lymph node was positive, and one AP window lymph node was positive (2 of 20 lymph nodes total). Surgical stage: [id number]. Molecular profiling: ALK, EGFR, BRAF, and HER-2/dayne are negative. The sample was positive for a KRAS mutation as well as a MET splice site variant (exon 14). g. July 18, 2015: Initiation of adjuvant carboplatin/paclitaxel with plan for two cycles, followed by adjuvant radiation therapy. All treatment was complete in September 2015. h. January 02, 2016, CT PET: Interval left lobectomy. Moderate left pleural effusion. No evidence of residual or metastatic glucose-active disease. Minimal ascites. i. April 13, 2016, CT chest: Postop changes to the left lung. Moderate left pleural effusion. No evidence of recurrent disease. j. October 15, 2016, CT chest: Stable postoperative changes of left upper lobectomy. No evidence of recurrent lung carcinoma or metastatic disease. There is a large gastric hiatal hernia. k. September 10, 2017, CT PET scan: Interval development of multifocal areas of hypermetabolic metastatic disease. Multiple hypermetabolic subcutaneous nodules within chest. Interval development of hypermetabolic left neck base lymph node. Right cardiophrenic angle lymph nodes. Ill-defined curvilinear soft tissue anterior to left heart with new hypermetabolic activity. New osseous metastasis within proximal left humerus and multiple ribs. Sclerosis within right cricoid cartilage with low-level metabolic uptake. Postsurgical changes from left upper lobectomy. 2. Diffuse large B cell lymphoma. a. Diagnosis made by way of biopsy of subcutaneous nodule that had presented on followup imaging for surveillance of his lung cancer. b. Status post bone marrow biopsy that shows no involvement of diffuse large B cell lymphoma. c. September 2015: Initiation of chemotherapy with R-CVP for cycle one. Cycle two R-CHOP has now been administered. Cycle five of chemotherapy has been completed. d. December 2015: Completion of his sixth cycle of chemotherapy. All cycles except cycle two were R-CVP. e. April 2018: Initiation of bendamustine and rituximab chemotherapy. PAST MEDICAL HISTORY 1. Hyperlipidemia. 2. Hypertension. 3. History of paroxysmal atrial fibrillation. 4. Gastroesophageal reflux disease with hiatal hernia. 5. History of reflux esophagitis. 6. History of renal insufficiency. 7. BPH. 8. Stage 3 chronic kidney disease. 9. History of nocturia. CURRENT MEDICATIONS 1. Sodium chloride tablets. 2. Potassium. 3. Lasix. 4. Diltiazem. 5. Apixaban. 6. Pravastatin. 7. Claritin D p.r.n. 8. Metoprolol. 9. Doxazosin. 10. Hydrochlorothiazide (per his printed medication list today). ALLERGIES IV CONTRAST DYE which reportedly causes rash. VITAL SIGNS Temperature is 97.8, blood pressure 122/81, heart rate is 70, respirations 16, oxygen saturation is 89% on room air. Weight is 172 pounds. PHYSICAL EXAMINATION GENERAL: Patient is alert and oriented times three, in no apparent distress, sitting in the exam room chair. His spirits are a little higher than usual today. HEENT: Anicteric sclerae. HEART: Irregularly irregular rhythm. LUNGS: Clear to auscultation bilaterally. NEUROLOGIC: Grossly nonfocal, although his gait is somewhat slow and antalgic. EXTREMITIES: Edema of the bilateral lower extremities without tenderness or erythema. LABORATORY STUDIES Reviewed per the [facility] record. IMAGING Please see Oncology History. ASSESSMENT AND PLAN 1. Diffuse large B cell lymphoma. I had a good visit with Geovany today. He has had a generally positive experience with initiation of bendamustine and rituximab. Toxicity is less than his prior regimen as anticipated. His quality of life has improved somewhat, but is not particularly good. I do think that it is going to be somewhat chronic in nature, unfortunately. We spent time discussing symptom management. He has had some swelling in his legs that has been responsive to Lasix. He has no concerning cardiopulmonary symptoms today. He has no new pain, and this is fairly encouraging. We spent time discussing our strategy moving forward. He does think that he would be able to tolerate bendamustine and rituximab every three weeks as opposed to every four weeks. He will return for cycle two next week on , and cycles will be given every three weeks from that point forward as long as he is tolerating treatment and as long as his counts will allow. Geovany had several additional questions for me today, and I believe I answered all his questions to his satisfaction. I will plan to see him during my next trip to [facility] here in [place]. 2. Stage III lung adenocarcinoma. We will reassess the status of this on his followup imaging as well. At this point, we are working with the diagnosis of relapsed lymphoma as opposed to recurrent lung cancer, although biopsy proof of this was not possible most recently from the standpoint of EBUS biopsy of the intrathoracic findings. I spent a total of 30 minutes with Geovany and his today, and 25 minutes of this was spent in direct counseling and coordination of care. TORI
[2018-05-28 08:48] VITALS: BP 114/73
[2018-05-28] MEDS: LIDOCAINE/SOD BICARB 8.4% SYR ID PRN (09:16)
[2018-05-28] MEDS: NS(*) 0.9% 500 ML BAG 500 ML IV PRN ×2 (09:16→10:52)
[2018-05-28 09:20] LABS: PLATELET COUNT, AUTOMATED 129 K/uL (150-450)
[2018-05-28] MEDS: ACETAMINOPHEN 325 MG TAB PO PRN (10:38)
[2018-05-28] MEDS: DEXAMETHASONE SOD PHOS 10MG/ML IVP PRN (10:39)
[2018-05-28] MEDS: PALONOSETRON 0.25 MG/5 ML VIAL IVP PRN (10:39)
[2018-05-28] MEDS: diphenhydrAMINE 50 MG/ML VIAL IVP PRN (10:48)
--- NOTE | 2018-05-28 12:33 | Oncology Progress Note ---
History of Present Illness Evaluation Evaluation Date: May 28, 2018 Evaluation Time: 09:30 Primary Care Provider Primary Care Provider: Kamran Hudson MD Accompanied by Accompanied by: Self, Son dropped him off today Last seen by : Leticia 05/21/18 Chief Complaint Chief Complaint Management chemotherapy treatment of Diffuse large B cell lymphoma Oncology History Oncology History 1. 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 April 15, 2017, CT chest: No significant change from September 2016; previous left upper lobectomy without locally recurrent or measurable metastatic disease; small partially loculated left pleural effusion, moderate-sized hiatal hernia, moderate coronary artery and aortic valve calcification. * Stage IIIA (pT2a N2 M0) adenocarcinoma of the left upper lobe, status post left upper lobectomy with mediastinal sampling. A MET splice site variant is present (exon 14) * Medical Oncologist: Dr. Kelly. * Radiation Oncologist: Dr. Shaikh. * Cardiothoracic Surgeon: Dr. Zavala. * Acute Specialist: Dr. Carballo. - April 03, 2015 CT Chest: Left upper lobe mass abutting left superior mediastinum and upper left hilum with mildly prominent left hilar lymph nodes, borderline prominent mediastinal lymph nodes. - April 20, 2015: Bronchoscopy. Pathology: Subcarinal lymph node negative, hilar lymph node negative, left upper lobe brushing consistent with adenocarcinoma, left upper lobe needle aspirate consistent with adenocarcinoma. - April 25, 2015 CT-PET: Spiculated mass of the medial left upper lobe measuring 3 x 4.6 cm, SUV = 21.4. Left suprahilar lymph node with an SUV of 9.6, but no hypermetabolic mediastinal lymphadenopathy and no evidence of metastatic disease. - May 11, 2015: Left upper lobectomy with mediastinal sampling complicated by pneumothorax. 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 Perineural invasion was present, however. One peribronchial lymph node was positive and one AP window lymph node was positive (2 of 20 lymph nodes total). Surgical stage: pT2a pN0 cM0. Molecular profiling: ALK, EGFR, BRAF, and HER2/dayne are negative. The sample was positive for a KRAS mutation as well as a MET splice site variant (exon 14). - July 18, 2015: Initiation of adjuvant carboplatin/paclitaxel with plan for two cycles, followed by adjuvant radiation therapy. All treatment was complete in September 2015. - January 02, 2016 CT-PET: Interval left lobectomy, moderate left pleural effusion; no evidence of residual or metastatic glucose-active disease; minimal ascites. - April 13, 2016 CT Chest: Postop changes to the left lung, moderate left pleu ral effusion; no evidence of recurrent disease. - October 15, 2016 CT Chest: Stable postoperative changes of left upper lobectomy. No evidence of recurrent lung carcinoma or metastatic disease. Th ere is a large gastric hiatal hernia. - September 10, 2017 CT PET Scan: Interval development of multifocal areas of hypermetabolic metastatic disease; multiple hypermetabolic subcutaneous nodules within chest; interval development of hypermetabolic left neck base lymph node, right cardiophrenic angle lymph nodes; ill-defined curvilinear soft tissue anterior to left heart with new hypermetabolic activity; new osseous metastasis within proximal left humerus and multiple ribs; sclerosis within right cricoid cartilage with low level metabolic uptake; post surgical changes from left upper lobectomy. 2. Diffuse large B cell lymphoma. - Diagnosis made by way of biopsy of subcutaneous nodule that had presented on follow-up imaging for surveillance of his lung cancer. - Status post bone marrow biopsy that shows no involvement of diffuse large B cell lymphoma. - September 2015: Initiation of chemotherapy with R-CVP for cycle one. Cycle two, R-CHOP, has now been administered. Cycle five of chemotherapy has been completed. - December 2015: Completion of his sixth cycle of chemotherapy. All cycles except cycle two were R-CVP. - 01/2018 developed hyponatremia. Normalized to date 03/10/18 Na+of 141. on 1G Sodium Tabs. & fluid restriction. - April 2018: Initiation of bendamustine and rituximab chemotherapy. Treatment Treatment Date: 04/30/18 Chemotherapy Regimen: Rituximab + Bendamustine. for Diffuse large B cell lymphoma. Forward as long as he is tolerating treatment and as long as his counts will allow. The regimen includes rituximab on day 1, bendamustine days 1 and 2 given every 28 days -05/28/2018 C2/D1 Rituximab + Bendamustine HPI HPI Mr. 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 Currently receiving maintenance -C2/D1 Rituximab + Bendamustine. Status post left upper lobectomy with mediastinal sampling, and sequential adjuvant chemotherapy and radiation; likely to be in remission for the lung cancer. Status post R-CHOP/R-CVP chemotherapy, six cycles completed 12/2015 with evidence of residual disease on followup CT PET scan post completion of chemo. Patient is seen and examined at the [facility] for his chemo treatment today. Besides some moderate fatigue; hypokalemia, skin rash, and bilateral lower extremities edema +3 he has no other issues or complains. He reports and looks his best for the last 2-3 months, as he was in out of the hospital and rehab. Mohini is AAOX4, in no acute distress, denies any cardiac type chest pain, chronic spontaneous cough, no SOb, no dizziness, no change in vision, no hemoptysis, no dark or bloody stool, no hematuria, denies any changes in bowel or bladder pattern, weight and appetite within baseline. Significant PMHx of Hyperlipidemia. Hypert ension.History of paroxysmal atrial fibrillation.Gastroesophageal reflux disease with hiatal hernia. History of reflux esophagitis. History of renal insufficiency. BPH.Stage 3 chronic kidney disease.History of nocturia. Living Conditions Diagnostic Studies Result Diagram: 05/28/18 0853 05/28/18 0853 [facility] Patient History: CLL (chronic lymphoid leukemia) BROTHER OR SISTER (CLL) FH: HTN (hypertension) MOTHER, , Age:88 FH: back pain BROTHER OR SISTER FH: bladder cancer FATHER, , Age:97 (95) Social/Occupational History Social History: Social History This is a 83 Yr old White male, he is M and has [] Children Hx Smoking: Yes Smoking Status: Former Smoker Exposure to Second Hand Smoke?: No Allergies & Medications Allergies: Coded Allergies: Iodinated Contrast- Oral and IV Dye (Verified Allergy, Mild, RASH, 03/10/18) VERIFIED 03/10/18 Home Meds Active Scripts Furosemide (LASIX) 20 Mg Tablet, 2 TAB PO QAM, #60 TAB 5 Refills Prov:MARIO SORTO MD 04/21/18 Tamsulosin Hcl (TAMSULOSIN HCL) 0.4 Mg Cap.er.24h, 0.4 MG PO QHS, #30 CAP 2 Refills Prov:MARIO SORTO MD 03/25/18 Metoprolol Succinate (METOPROLOL SUCCINATE) 50 Mg Tab.er.24h, 1 TAB PO QDAY, #30 TAB 6 Refills Prov:MARIO SORTO MD 03/17/18 Reported Medications Diltiazem Hcl (CARTIA XT) 180 Mg Cap.er.24h, 180 MG PO BID 04/15/18 Sennosides (SENNA LAXATIVE) 8.6 Mg Tablet, 8.6 MG PO PRN for CONSTIPATION 03/13/18 Docusate Sodium (DOCUSATE SODIUM) 100 Mg Capsule, 100 MG PO PRN for CONSTIPATION, CAPSULE 03/13/18 Apixaban (ELIQUIS) 5 Mg Tablet, 1 TAB PO BID 10/09/17 Pravastatin Sodium (Pravachol) 10 Mg Tablet, 1 TAB PO QDAY, 0 Refills 05/21/11 Review of Systems Constitution: Positive for Appetite/Weight Change; Denies Fever/Chills/Sweating, Denies Recent Infection, Denies Other HEENT: No EARS: Tinnitus, No NOSE: Nasal Discharge, No THROAT: Sore Throat, No EYES: Dipolpia, No EARS: Hearing Problems, No NOSE: Epistaxis, No THROAT: Mouth Ulcers, No EYES: Vision Change, No OTHER Respiratory: Cough; No Expectoration, No Hemoptysis, No Shortness of Breath, No OTHER Cardiovascular: Edema, OTHER Gastrointestinal: No Nausea, No Vomitting, No Diarrehea, No Constipation, No Heart Burn, No Swallowing Difficulties, No Abdominal Pain, No Other Gentiourinary: No Hematuria, No Dysuria, No Nocturia, No Other Musculoskeletal: Muscle Pain, Joint Pain, Bone Pain Hematological: Weakness, Fatigue Skin: Skin Rash Psychiatric: Anxiety, Depression Vital Signs Vital Signs Temperature: 96.9 Pulse: 89 BP Systolic: 114 BP Diastolic: 73 Respiratory Rate: 16 O2 SAT: 91 O2 Delivery: Height (feet) Height (inches) 68.00 Weight lb: 171 Weight oz: Weight Kg (Bryant): Pain: 0 ECOG-1 Physical Exam General: Looks Stable, Well Developed, Well Nourished, Other (in No acute distress) HEENT: HEAD:Atraumatic; No EYES: Conjuctivitis, No EYES: Icterus, No MOUTH: Mucocitis, No MOUTH: Oral Thrush, No SINUS: Tenderness to Palpation, No Other Neck: Supple Lungs: Clear to Auscultation, Percussion Bilaterally Heart: Regular Rate and Rhythm; No Gallops, No Murmurs, No Clicks, No Rubs; Other Abdomen: Soft and Nontender; No Hepatosplenomegaly, No Masses, No Other Extremities: No Cyanosis, No Clubbing, No Edema, No Other Lymphatics: Other (+3 bilateral lower extremitimies ankle edema) Psychiatric: Mood appears normal, Affect appears normal Skin: Skin Rashes, Moderate Errythema Breast: No Masses Assessment and Plan Assessment and Plan Mr. 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 Currently receiving maintenance -C2/D1 Rituximab + Bendamustine. Status post left upper lobectomy with mediastinal sampling, and sequential adjuvant chemotherapy and radiation; likely to be in remission for the lung cancer. Status post R-CHOP/R-CVP chemotherapy, six cycles completed 12/2015 with evidence of residual disease on followup CT PET scan post completion of chemo. Unfortunately, after his sixth cycle of chemotherapy he was hospitalized for hyponatremia. Patient is seen and examined at the infusion center for his chemo treatment today. Besides some moderate fatigue; hypokalemia, skin rash, and wojciech ateral lower extremities edema +3 he has no other issues or complains. He reports and looks his best for the last 2-3 months, as he was in out of the hospital and rehab. Omhini is AAOX4, in no acute distress, denies any cardiac type chest pain, chronic spontaneous cough, no SOB. he continues to keep active and on the 50% of the time. DIAGNOSTIC DATA cbc, cmp within acceptable parameters except K+ 3.3 1. Diffuse large B cell lymphoma. Currently receiving maintenance - C2/D1 Rituximab + Bendamustine. Status post R-CHOP/R-CVP chemotherapy, six cycles completed 12/2015 with evidence of residual disease on followup CT PET scan post completion of chemo 2. Stage IIIA lung adenocarcinoma. Status post left upper lobectomy with medi astinal sampling, and sequential adjuvant chemotherapy and radiation; likely to be in remission for the lung cancer.Encouraged to continue to use Home incentive spirometer, q hour while awake. 3. Hypokalemia. K+ is 3.3 today, in the setting of disease process, antineoplastic therapy, and furosemide treatment, we will replete with 20meq Iv x1 r=today and send home with Rx of potassium chloride 20meq Po daily x 30 days. 4. Hyponatremia. multifactorial and chemo induced, resolved. Na today is 139, he is n longer on sodium supplement tabs. 5. Skin rash. on the upper chest, scattered, no drainage,non bullous, patient reports minimum itchiness. Encouraged to keep skin clean, and hydrated with moisturizers water based. we will Rx david cream/triamcinolone 0.1% compound, patient to apply up to TID PRN. 6. Bilateral lower extremities edema +3. more prominent on the ankles. patient on Lasix , and K+supplement. Encouraged to continue with Physical therapy exercise and ambulation.reports no weight gain. CHRONIC well managed and under controlled by PCP and Cardiology 1. Hyperlipidemia. 2. Hypertension. 3. History of paroxysmal atrial fibrillation. 4. Gastroesophageal reflux disease with hiatal hernia. 5. History of reflux esophagitis. 6. History of renal insufficiency. 7. BPH. 8. Stage 3 chronic kidney disease. 9. History of nocturia. PLAN - Proceed with -C2/D1 Rituximab + Bendamustine as planned - Replete K+20meq Iv x1 r=today and send home with Rx of potassium chloride 20meq Po daily x 30 days -Continue to follow up with PCP, Cardiology and rehabilitation -CBC/diff, CMP, Mag with next lab drawn -Patient instructed to may resume is Mag oxide OTC - Follow up with MD/[facility]ANS per protocol - Patient instructed to continue to use Home incentive spirometer, 12 sessions q hour while awake. -RTC PRN, contact Cancer Center with any issues or concerns. Education, patient instructed to go to ER immediately and or call Clinic if any Shortness of Breath, Temp >/=100.4, fevers, chills, cardiac type chest pain, bleeding, excessive bruising, headaches, blurry vision, dizziness, abdominal pain, difficulty swallowing, and pain unrelieved by medication. TIME SPENT: 30 minutes 25> minutes includes but not limited to discussion, counselling and co-ordination~ of care. Discussion with other health care providers, record review, review of lab work, diagnostic tests. Plan discussed extensively with patient. All the questions answered today. Thank you for the opportunity to be involved in the care of Mr. Yudelka Barragan. Billing level return visit: 4 NORA JASON, ONC May 28, 2018 12:33
[2018-05-28 16:37] VITALS: BP 110/70
[2018-05-28] MEDS: HEPARIN FLSH (PORT) 500 UN/5ML IVP PRN (16:37)
[2018-05-29 11:44] VITALS: BP_SYST 110; BP_SYST 118; BP_DIAS 70; BP_DIAS 80
[2018-05-29] MEDS: DEXAMETHASONE SOD PHOS 10MG/ML IVP PRN (12:16)
[2018-05-29] MEDS: NS(*) 0.9% 500 ML BAG 500 ML IV PRN (12:17)
[2018-05-29] MEDS: HEPARIN FLSH (PORT) 500 UN/5ML IVP PRN (13:31)
[2018-06-04 09:32] VITALS: BP 131/93
[2018-06-04 09:42] LABS: PLATELET COUNT, AUTOMATED 143 K/uL (150-450)
[2018-06-11 09:49] VITALS: BP 115/81
[2018-06-11 09:51] LABS: PLATELET COUNT, AUTOMATED 105 K/uL (150-450)
[2018-06-18 08:33] VITALS: BP 102/73
[2018-06-18] MEDS: NS(*) 0.9% 500 ML BAG 500 ML IV PRN (08:55)
[2018-06-18] MEDS: LIDOCAINE/SOD BICARB 8.4% SYR ID PRN (08:55)
[2018-06-18] MEDS: ACETAMINOPHEN 325 MG TAB PO PRN (09:21)
[2018-06-18] MEDS: PALONOSETRON 0.25 MG/5 ML VIAL IVP PRN (09:21)
[2018-06-18] MEDS: DEXAMETHASONE SOD PHOS 10MG/ML IVP PRN (09:22)
[2018-06-18] MEDS: HEPARIN FLSH (PORT) 500 UN/5ML IVP PRN (13:01)
[2018-06-18 13:03] VITALS: BP 103/64
[2018-06-19] MEDS: LIDOCAINE/SOD BICARB 8.4% SYR ID PRN (11:55)
[2018-06-19] MEDS: NS(*) 0.9% 500 ML BAG 500 ML IV PRN (11:56)
[2018-06-19] MEDS: HEPARIN FLSH (PORT) 500 UN/5ML IVP PRN (11:56)
[2018-06-19] MEDS: DEXAMETHASONE SOD PHOS 10MG/ML IVP PRN (12:07)
[2018-06-19 13:26] VITALS: BP 117/76
[2018-06-25 10:01] LABS: PLATELET COUNT, AUTOMATED 107 K/uL (150-450)
[~2018-07-02] VITALS: Ht 172.7 cm; Wt 74.6 kg
[~2018-07-02 12:00] MED LIST changes: +ALTEPLASE RECOMB 2 MG VIAL IVP PRN; +BENDAMUSTINE HCL IVPB ONE; +DEXTROSE 5%(*) 100 ML BAG 100 ML IVPB PRN; +IOPAMIDOL 76% 75 ML INFUS BTL 75 ML ONE; +KCL (*) 20 MEQ/100 ML PREMIX 100 ML IVPB ONE; +NS 0.9% IVPB ONE; +NS(*) 0.9% 100 ML BAG 100 ML IVPB PRN; +WATER FOR INJ,STERILE 20 ML IVP PRN; +diphenhydrAMINE 25 MG CAP PO PRN; +riTUXimab 500 MG/50 ML SDV 500 MG, riTUXimab 100 MG/10 ML SDV 200 MG in NS(*) 0.9% 1000... IV ONE; +riTUXimab 500 MG/50 ML SDV 500 MG, riTUXimab 100 MG/10 ML SDV 200 MG in NS(*) 0.9% 500 ... IV ONE; +riTUXimab 500 MG/50 ML SDV 500 MG, riTUXimab 100 MG/10 ML SDV 200 MG in NS(*) 0.9% 500 ... IV PRN
[2018-07-02 12:35] LABS: PLATELET COUNT, AUTOMATED 112 K/uL (150-450)
[2018-07-02 12:36] VITALS: BP 117/79
--- NOTE | 2018-07-02 19:12 | ONCOLOGY FOLLOW UP NOTE ---
EVENT DATE: July 02, 2018 REASON FOR FOLLOWUP 1. 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 2. Diffuse large B cell lymphoma. a. Status post R-CHOP/R-CVP chemotherapy, six cycles complete with evidence of residual disease on followup CT/PET scan post completion of chemo. b. Status post 3 cycles of bendamustine and rituximab. INTERIM HISTORY Geovany returns to clinic for a followup visit today. He is accompanied by his . Geovany is not happy today. He reports that the last two weeks have been miserable, basically the worst that he has ever felt in his life. He attributes this either to the chemotherapy or to his view that the treatment is likely not working. He reports no fever. He reports no significant nausea. He does continue to report rather substantial fatigue and weakness to the point where he is at times doubtful that he can get out of bed. This has improved over the past 24 hours, however. He has completed three cycles of bendamustine and rituximab. He has also undergone a CT/PET scan, and he and his are here to review the results. REVIEW OF SYSTEMS Otherwise negative, and all systems were reviewed. ONCOLOGY HISTORY 1. 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 a. April 15, 2017, CT chest: No significant change from September 2016. Previous left upper lobectomy without locally recurrent or measurable metastatic disease. Small, partially loculated left pleural effusion. Moderate-sized hiatal hernia. Moderate coronary artery and aortic valve calcification. b. Stage IIIA (pT2a N2 M0) adenocarcinoma of the left upper lobe, status post left upper lobectomy with mediastinal sampling. 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 * Medical Oncologist: Dr. Kelly. * Radiation Oncologist: Dr. Shaikh. * Cardiothoracic Surgeon: Dr. Zavala. * Rubber Cutter: Dr. Carballo. c. April 03, 2015 CT chest: Left upper lobe mass abutting left superior mediastinum and upper left hilum with mildly prominent left hilar lymph nodes and borderline prominent mediastinal lymph nodes. d. April 20, 2015: Bronchoscopy. Pathology: Subcarinal lymph node negative, hilar lymph node negative. Left upper lobe brushing consistent with adenocarcinoma. Left upper lobe needle aspirate consistent with adenocarcinoma. e. April 25, 2015, CT PET: Spiculated mass of the medial left upper lobe measuring 3 x 4.6 cm, SUV = 21.4. Left suprahilar lymph node with an SUV of 9.6, but no hypermetabolic mediastinal lymphadenopathy, and no evidence of metastatic disease. f. May 11, 2015: Left upper lobectomy with mediastinal sampling, complicated by pneumothorax. 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 Perineural invasion was present, however. One peribronchial lymph node was positive, and one AP window lymph node was positive (2 of 20 lymph nodes total). Surgical stage: [id number]. Molecular profiling: ALK, EGFR, BRAF, and HER-2/dayne are negative. The sample was positive for a KRAS mutation as well as a MET splice site variant (exon 14). g. July 18, 2015: Initiation of adjuvant carboplatin/paclitaxel with plan for two cycles, followed by adjuvant radiation therapy. All treatment was complete in September 2015. h. January 02, 2016, CT PET: Interval left lobectomy. Moderate left pleural effusion. No evidence of residual or metastatic glucose-active disease. Minimal ascites. i. April 13, 2016, CT chest: Postop changes to the left lung. Moderate left pleural effusion. No evidence of recurrent disease. j. October 15, 2016, CT chest: Stable postoperative changes of left upper lobectomy. No evidence of recurrent lung carcinoma or metastatic disease. There is a large gastric hiatal hernia. k. September 10, 2017, CT PET scan: Interval development of multifocal areas of hypermetabolic metastatic disease. Multiple hypermetabolic subcutaneous nodules within chest. Interval development of hypermetabolic left neck base lymph node. Right cardiophrenic angle lymph nodes. Ill-defined curvilinear soft tissue anterior to left heart with new hypermetabolic activity. New osseous metastasis within proximal left humerus and multiple ribs. Sclerosis within right cricoid cartilage with low-level metabolic uptake. Postsurgical changes from left upper lobectomy. 2. Diffuse large B cell lymphoma. a. Diagnosis made by way of biopsy of subcutaneous nodule that had presented on followup imaging for surveillance of his lung cancer. b. Status post bone marrow biopsy that shows no involvement of diffuse large B cell lymphoma. c. September 2015: Initiation of chemotherapy with R-CVP for cycle one. Cycle two R-CHOP has now been administered. Cycle five of chemotherapy has been completed. d. December 2015: Completion of his sixth cycle of chemotherapy. All cycles except cycle two were R-CVP. e. April 2018: Initiation of bendamustine and rituximab chemotherapy. f. June 30, 2018, CT/PET scan: Interval resolution of uptake in the left humerus as well as subcutaneous nodules and left axillary lymph node. There is slightly increased uptake in the left hilar region without a corresponding change in CT. There is pleural uptake anteriorly in the left chest near the fourth, fifth, and seventh ribs with slightly increased FDG avidity. There are no new sites of disease. There are postoperative changes noted from left upper lobectomy with a [id number] loculated left-sided pleural effusion, unchanged. PAST MEDICAL HISTORY 1. Hyperlipidemia. 2. Hypertension. 3. History of paroxysmal atrial fibrillation. 4. Gastroesophageal reflux disease with hiatal hernia. 5. History of reflux esophagitis. 6. History of renal insufficiency. 7. BPH. 8. Stage 3 chronic kidney disease. 9. History of nocturia. MEDICATIONS 1. Flomax. 2. Lasix. 3. Metoprolol. 4. Diltiazem. 5. Senna. 6. Docusate. 7. Eliquis. 8. Pravastatin. ALLERGIES IV CONTRAST DYE which reportedly causes rash. VITAL SIGNS Temperature is 97.6, blood pressure 117/79, heart rate is 71, respirations 16, oxygen saturation is 95% on room air. PHYSICAL EXAMINATION GENERAL: Patient is alert and oriented times three, in no apparent distress. He is not in a good mood today. HEENT: Anicteric sclerae. NEUROLOGIC: Grossly nonfocal. SKIN: No concerning rash or lesion. EXTREMITIES: No clubbing or cyanosis, but he does have bilateral lower extremity edema. LABORATORY STUDIES Reviewed per the [facility] record. IMAGING Please see Oncology History. ASSESSMENT AND PLAN 1. Diffuse large B cell lymphoma. I visited with Geovany and his today. We spent time discussing his experience to date with bendamustine and rituximab. His first two cycles were reasonable, but his most recent cycle was a disappointment in terms of quality of life. We discussed that his very significant weakness and fatigue, presumably due to chemotherapy over the past few weeks, has gotten better over the past day. We spent time discussing his CT/PET scan. The left humerus lesion as well as left axillary lymphadenopathy and subcutaneous nodules have all improved. We are seeing more hypermetabolic activity in the left hilum as well as some areas of the anterior pleura on the left. There is concern for some progression in the left-sided rib as well. As discussed with Geovany, we are dealing with one of several scenarios given his history both of diffuse large B-cell lymphoma and non-small cell lung cancer. The first scenario would be response to bendamustine and rituximab of his diffuse large B-cell lymphoma with the possibility of underlying/recurrent lung cancer to account for persistent/worsening areas on his PET scan. The second scenario would be a mixed response to recurrent/relapsed diffuse large B-cell lymphoma without recurrence of his lung cancer. I have recommended that his case be brought before the Thoracic Tumor Board tomorrow morning. The left- sided rib lesion does potentially appear to be amenable to biopsy. We discussed the merits of biopsy, and Geovany is open minded to this. We discussed a potential need for a change in therapy should the rib reveal evidence of persistent diffuse large B-cell lymphoma despite recent bendamustine and rituximab. We also discussed the possibility of further therapy should the biopsy be consistent with recurrent lung cancer. His prior surgical specimen did show evidence of a MET exon 14 splice variant. We discussed other treatments such as checkpoint inhibitor therapy, as chemotherapy has been hard on him. Geovany and his had several additional questions for me today, and I believe I answered all their questions to their satisfaction. I will be back in touch with him before the end of the week to discuss additional recommendations. 2. Stage III lung adenocarcinoma. As above. I spent a total of 30 minutes of time face to face with the patient and his today, and 25 minutes of this were spent in direct counseling and coordination of care. TORI
== END 2018-07-03 ==
LOC: SPU 12:00
PROVIDERS: ATTEND Internal Medicine Medical Oncology
DX: Z51.11 Encounter for antineoplastic chemotherapy (principal); C83.30 Diffuse large B-cell lymphoma, unspecified site; C34.92 Malignant neoplasm of unspecified part of left bronchus or lung; I12.9 Hypertensive chronic kidney disease with stage 1 through stage 4 chronic kidney disease, or unspecified chronic kidney disease; E78.00 Pure hypercholesterolemia, unspecified; R53.83 Other fatigue; I48.91 Unspecified atrial fibrillation; E87.1 Hypo-osmolality and hyponatremia; N18.3 Chronic kidney disease, stage 3 (moderate); E78.5 Hyperlipidemia, unspecified; J90 Pleural effusion, not elsewhere classified; K44.9 Diaphragmatic hernia without obstruction or gangrene; N40.1 Benign prostatic hyperplasia with lower urinary tract symptoms
CPT/HCPCS: 36415; 71270; 74178; 83615; 83735; 84100; 84153; 84550; 85025; 85027; 96361; 96366; 96367; 96375; 96409; 96411; 96413; 96415; 96417; A9270; G0463; J1100; J1200; J1642; J2469; J3480; J7030; J7040; J7050; J9034; J9310; Q0163; Q9967; 82040; 82247; 82310; 82374; 82435; 82565; 82570; 82947; 83883; 84075; 84132; 84155; 84156; 84295; 84450; 84460; 84520; 86334; 86335; 99212

== ENCOUNTER 2018-10-01 10:29 | Outpatient (RCR) | payer MEDICARE, BC ==
[2018-07-07 10:16] VITALS: BP 130/80
[2018-07-07 10:28] LABS: PLATELET COUNT, AUTOMATED 105 K/uL (150-450)
[2018-07-10 11:03] VITALS: BP 122/74
[2018-07-14 11:09] VITALS: BP 123/69
[2018-07-14 11:18] LABS: PLATELET COUNT, AUTOMATED 114 K/uL (150-450)
[2018-07-21 11:28] VITALS: BP_SYST 111; BP_SYST 117; BP_DIAS 63; BP_DIAS 76
[2018-07-21 11:30] LABS: PLATELET COUNT, AUTOMATED 133 K/uL (150-450)
--- NOTE | 2018-07-28 09:34 | NUR ---
SW received signed paperwork back for patient's [employer] application. SW faxed completed application to [employer] together.
[2018-07-30 11:25] VITALS: BP 120/72
[2018-07-30 11:42] LABS: PLATELET COUNT, AUTOMATED 153 K/uL (150-450)
--- NOTE | 2018-07-31 23:24 | ONCOLOGY FOLLOW UP NOTE ---
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 This is likely felt to be in remission. 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 He underwent treatment with R-CHOP/R-CVP for six cycles with evidence of residual disease on followup after completion of chemotherapy. He then completed three cycles of bendamustine and Rituxan. He presents with his today and describes feeling "as bad as I have ever felt." His weight is stable, although he has less of an appetite. He notes cough and describes this as "fits," occasionally productive of clear phlegm. He has ongoing neuropathy and continued lower extremity edema. He has occasional night sweats and no energy. He does not believe that the lymphoma is "gone." ONCOLOGY HISTORY 1. 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 a. April 15, 2017, CT chest: No significant change from September 2016. Previous left upper lobectomy without locally recurrent or measurable metastatic disease. Small, partially loculated left pleural effusion. Moderate-sized hiatal hernia. Moderate coronary artery and aortic valve calcification. b. Stage IIIA (pT2a N2 M0) adenocarcinoma of the left upper lobe, status post left upper lobectomy with mediastinal sampling. 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 * Medical Oncologist: Dr. Kelly. * Radiation Oncologist: Dr. Shaikh. * Cardiothoracic Surgeon: Dr. Zavala. * Work Force Advisor: Dr. Carballo. c. April 03, 2015 CT chest: Left upper lobe mass abutting left superior mediastinum and upper left hilum with mildly prominent left hilar lymph nodes and borderline prominent mediastinal lymph nodes. d. April 20, 2015: Bronchoscopy. Pathology: Subcarinal lymph node negative, hilar lymph node negative. Left upper lobe brushing consistent with adenocarcinoma. Left upper lobe needle aspirate consistent with adenocarcinoma. e. April 25, 2015, CT PET: Spiculated mass of the medial left upper lobe measuring 3 x 4.6 cm, SUV = 21.4. Left suprahilar lymph node with an SUV of 9.6, but no hypermetabolic mediastinal lymphadenopathy, and no evidence of metastatic disease. f. May 11, 2015: Left upper lobectomy with mediastinal sampling, complicated by pneumothorax. 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 Perineural invasion was present, however. One peribronchial lymph node was positive, and one AP window lymph node was positive (2 of 20 lymph nodes total). Surgical stage: [id number]. Molecular profiling: ALK, EGFR, BRAF, and HER-2/dayne are negative. The sample was positive for a KRAS mutation as well as a MET splice site variant (exon 14). g. July 18, 2015: Initiation of adjuvant carboplatin/paclitaxel with plan for two cycles, followed by adjuvant radiation therapy. All treatment was complete in September 2015. h. January 02, 2016, CT PET: Interval left lobectomy. Moderate left pleural effusion. No evidence of residual or metastatic glucose-active disease. Minimal ascites. i. April 13, 2016, CT chest: Postop changes to the left lung. Moderate left pleural effusion. No evidence of recurrent disease. j. October 15, 2016, CT chest: Stable postoperative changes of left upper lobectomy. No evidence of recurrent lung carcinoma or metastatic disease. There is a large gastric hiatal hernia. k. September 10, 2017, CT PET scan: Interval development of multifocal areas of hypermetabolic metastatic disease. Multiple hypermetabolic subcutaneous nodules within chest. Interval development of hypermetabolic left neck base lymph node. Right cardiophrenic angle lymph nodes. Ill-defined curvilinear soft tissue anterior to left heart with new hypermetabolic activity. New osseous metastasis within proximal left humerus and multiple ribs. Sclerosis within right cricoid cartilage with low-level metabolic uptake. Postsurgical changes from left upper lobectomy. 2. Diffuse large B cell lymphoma. a. Diagnosis made by way of biopsy of subcutaneous nodule that had presented on followup imaging for surveillance of his lung cancer. b. Status post bone marrow biopsy that shows no involvement of diffuse large B cell lymphoma. c. September 2015: Initiation of chemotherapy with R-CVP for cycle one. Cycle two R-CHOP has now been administered. Cycle five of chemotherapy has been completed. d. December 2015: Completion of his sixth cycle of chemotherapy. All cycles except cycle two were R-CVP. e. April 2018: Initiation of bendamustine and rituximab chemotherapy. f. June 30, 2018, CT/PET scan: Interval resolution of uptake in the left humerus as well as subcutaneous nodules and left axillary lymph node. There is slightly increased uptake in the left hilar region without a corresponding change in CT. There is pleural uptake anteriorly in the left chest near the fourth, fifth, and seventh ribs with slightly increased FDG avidity. There are no new sites of disease. There are postoperative changes noted from left upper lobectomy with a [id number] loculated left-sided pleural effusion, unchanged. PAST MEDICAL HISTORY 1. Hyperlipidemia. 2. Hypertension. 3. History of paroxysmal atrial fibrillation. 4. Gastroesophageal reflux disease with hiatal hernia. 5. History of reflux esophagitis. 6. History of renal insufficiency. 7. BPH. 8. Stage 3 chronic kidney disease. 9. History of nocturia. FAMILY HISTORY Brother with CLL. Father with bladder cancer. SOCIAL HISTORY Patient is . He is retired from [employer] at . They have three grown children. He quit cigarettes many years ago. He previously had one to two drinks per day. MEDICATIONS 1. Flomax. 2. Lasix. 3. Metoprolol. 4. Diltiazem. 5. Senna. 6. Docusate. 7. Eliquis. 8. Pravastatin. ALLERGIES IV CONTRAST DYE which reportedly causes rash. LAB: CBC today reveals a WBC of 5.5, hgb 12.7, hct 37.8 and platelets 153,000. CMP is WNL except for a mildly decreased Na++ 135 and albumin 3.2. REVIEW OF SYSTEMS A 12-point review of systems is performed and is negative except as stated above. PHYSICAL EXAMINATION VITAL SIGNS: Weight 75 kg (stable over the past month). BP 120/72, P 84, R 16, temp 97.1, O2 sat 90%. GENERAL: Patient is a well-developed, thin male in no acute distress. HEAD: Normocephalic, atraumatic. EYES: Sclerae anicteric. MOUTH: Moist mucous membranes without lesions. NECK: No adenopathy. LUNGS: Clear bilaterally. CARDIOVASCULAR: Heart rate regular, 84 per minute, without murmur, S3, or S4. Occasional skipped beat. EXTREMITIES: Pretibial edema 1 to 2+ bilaterally. NEUROLOGIC: Nonfocal. IMPRESSION AND PLAN The patient is an 83-year-old male with both adenocarcinoma of the left lung and diffuse large B-cell lymphoma. He has had significant toxicity with chemotherapy. He has felt poorly since completion of his last cycle of bendamustine and Rituxan. He is here today to discuss options for care. Dr. Kelly and I spent a total of 50 minutes with the patient today, greater than 70% in [id number] counseling. Dr. Kelly discussed that he does have a MET exon 14 splice variant on his initial surgical specimen. He then discussed the use of crizotinib, although Mr. Jha is unsure about this medication, having read about the possible side effects. We also reviewed that this would likely not be effective for his diffuse large B-cell lymphoma. [id number] testing was done, but this did not show any actionable results. I also spent time discussing end of life care. As he feels so poorly, he is concerned about his quality of life if he were to start on crizotinib and wonders whether it would be effective. I offered to have hospice come for an informational visit only. However, he defers and would prefer to stop at the hospice office at some point. I have encouraged him to do this as well as consider his option of treatment. He does understand that this would likely not affect his lymphoma. Patient will be seen in followup in approximately two weeks to review his hospice visit as well as discuss possible treatment with crizotinib. TORI
--- NOTE | 2018-08-04 10:30 | NUR ---
[facility] rec'd a call stating that the patient was approved for xalkori, however they needed an updated script. [facility] was about to fax the updated script when the patient called in and spoke with the TRAFFIC LINE PAINTER and indicated he did not want to proceed with starting the Xalkori. [facility] may contact the patient later this week to find out if this is still his plan.
--- NOTE | 2018-08-07 10:33 | NUR ---
[facility] rec's a message from [facility] indicating the patient and had stopped in for an informational visit. Hospice requested a follow up note. [facility]ENT faxed note today.
[2018-08-14 12:48] VITALS: BP 134/82
--- NOTE | 2018-08-15 12:44 | ONCOLOGY FOLLOW UP NOTE ---
EVENT DATE: August 14, 2018 CHIEF COMPLAINT Followup for lung cancer and lymphoma. HISTORY OF PRESENT ILLNESS Patient is an 83-year-old male who was seen today in followup. He has been treated for both adenocarcinoma of the left lung, status post resection followed by adjuvant chemo and radiation, currently felt to be in remission. He then developed diffuse large B-cell lymphoma. He completed chemotherapy with evidence of residual disease. His last treatment with bendamustine and Rituxan was in May 2018. Since that time he has felt progressively worse. He does not have much of an appetite, although weight is stable. His biggest issues today include productive cough of clear phlegm. He states this happens more after eating, especially after dinner, and it is very exhausting to him. He is not sleeping well but not secondary to cough. He has noticed new "lumps" on his back, arm and legs. He met with [facility] and is considering admission but still struggles with this. As above, his biggest issues are of cough and poor sleep. ONCOLOGY HISTORY 1. 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 a. April 15, 2017, CT chest: No significant change from September 2016. Previous left upper lobectomy without locally recurrent or measurable metastatic disease. Small, partially loculated left pleural effusion. Moderate-sized hiatal hernia. Moderate coronary artery and aortic valve calcification. b. Stage IIIA (pT2a N2 M0) adenocarcinoma of the left upper lobe, status post left upper lobectomy with mediastinal sampling. 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 * Medical Oncologist: Dr. Kelly. * Radiation Oncologist: Dr. Shaikh. * Cardiothoracic Surgeon: Dr. Zavala. * Project Design Engineer: Dr. Carballo. c. April 03, 2015 CT chest: Left upper lobe mass abutting left superior mediastinum and upper left hilum with mildly prominent left hilar lymph nodes and borderline prominent mediastinal lymph nodes. d. April 20, 2015: Bronchoscopy. Pathology: Subcarinal lymph node negative, hilar lymph node negative. Left upper lobe brushing consistent with adenocarcinoma. Left upper lobe needle aspirate consistent with adenocarcinoma. e. April 25, 2015, CT PET: Spiculated mass of the medial left upper lobe measuring 3 x 4.6 cm, SUV = 21.4. Left suprahilar lymph node with an SUV of 9.6, but no hypermetabolic mediastinal lymphadenopathy, and no evidence of metastatic disease. f. May 11, 2015: Left upper lobectomy with mediastinal sampling, complicated by pneumothorax. 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 Perineural invasion was present, however. One peribronchial lymph node was positive, and one AP window lymph node was positive (2 of 20 lymph nodes total). Surgical stage: [id number]. Molecular profiling: ALK, EGFR, BRAF, and HER-2/dayne are negative. The sample was positive for a KRAS mutation as well as a MET splice site variant (exon 14). g. July 18, 2015: Initiation of adjuvant carboplatin/paclitaxel with plan for two cycles, followed by adjuvant radiation therapy. All treatment was complete in September 2015. h. January 02, 2016, CT PET: Interval left lobectomy. Moderate left pleural effusion. No evidence of residual or metastatic glucose-active disease. Minimal ascites. i. April 13, 2016, CT chest: Postop changes to the left lung. Moderate left pleural effusion. No evidence of recurrent disease. j. October 15, 2016, CT chest: Stable postoperative changes of left upper lobectomy. No evidence of recurrent lung carcinoma or metastatic disease. There is a large gastric hiatal hernia. k. September 10, 2017, CT PET scan: Interval development of multifocal areas of hypermetabolic metastatic disease. Multiple hypermetabolic subcutaneous nodules within chest. Interval development of hypermetabolic left neck base lymph node. Right cardiophrenic angle lymph nodes. Ill-defined curvilinear soft tissue anterior to left heart with new hypermetabolic activity. New osseous metastasis within proximal left humerus and multiple ribs. Sclerosis within right cricoid cartilage with low-level metabolic uptake. Postsurgical changes from left upper lobectomy. 2. Diffuse large B cell lymphoma. a. Diagnosis made by way of biopsy of subcutaneous nodule that had presented on followup imaging for surveillance of his lung cancer. b. Status post bone marrow biopsy that shows no involvement of diffuse large B cell lymphoma. c. September 2015: Initiation of chemotherapy with R-CVP for cycle one. Cycle two R-CHOP has now been administered. Cycle five of chemotherapy has been completed. d. December 2015: Completion of his sixth cycle of chemotherapy. All cycles except cycle two were R-CVP. e. April 2018: Initiation of bendamustine and rituximab chemotherapy. f. June 30, 2018, CT/PET scan: Interval resolution of uptake in the left humerus as well as subcutaneous nodules and left axillary lymph node. There is slightly increased uptake in the left hilar region without a corresponding change in CT. There is pleural uptake anteriorly in the left chest near the fourth, fifth, and seventh ribs with slightly increased FDG avidity. There are no new sites of disease. There are postoperative changes noted from left upper lobectomy with a [id number] loculated left-sided pleural effusion, unchanged. PAST MEDICAL HISTORY 1. Hyperlipidemia. 2. Hypertension. 3. History of paroxysmal atrial fibrillation. 4. Gastroesophageal reflux disease with hiatal hernia. 5. History of reflux esophagitis. 6. History of renal insufficiency. 7. BPH. 8. Stage 3 chronic kidney disease. 9. History of nocturia. FAMILY HISTORY Brother with CLL. Father with bladder cancer. SOCIAL HISTORY Patient is . He is retired from [employer] at . They have three grown children. He quit cigarettes many years ago. He previously had one to two drinks per day. MEDICATIONS 1. Flomax. 2. Lasix. 3. Metoprolol. 4. Diltiazem. 5. Senna. 6. Docusate. 7. Eliquis. 8. Pravastatin. ALLERGIES IV CONTRAST DYE which reportedly causes rash. REVIEW OF SYSTEMS A 12-point review of systems is performed and is negative except as stated above. PHYSICAL EXAMINATION VITAL SIGNS: Weight 75 kg. BP 134/82, P 88, R 16, temp 96.4, O2 sat 94%. GENERAL: Patient is a well-developed but fatigued appearing male in no acute distress. HEAD: Normocephalic, atraumatic. EYES: Sclerae anicteric. MOUTH: Moist mucous membranes without lesions. NECK: Supple. No palpable adenopathy. LUNGS: Clear bilaterally. CARDIOVASCULAR: Heart rate irregularly regular, 88 per minute without murmur, S3, or S4. EXTREMITIES: No edema. NEUROLOGIC: Nonfocal. SKIN: Patient now has multiple firm subcutaneous ill-formed nodules; one on the back of his left arm, mid back, upper thighs and inner thighs. These are not painful but, again, very firm and ill-defined masses. LAB Refused labs today. IMPRESSION AND PLAN The patient is an 83-year-old male with both adenocarcinoma of the left lung and diffuse large B-cell lymphoma. He has had significant toxicity with chemotherapy. He has felt poorly since completion of his last cycle of bendamustine and Rituxan. 1. Cough. He has ongoing cough productive of somewhat of a clear/white phlegm. He states this happens more after eating. It is exhausting to him and he has been overwhelmed by this. He does not cough at night but more during the day and evening. We spent some time discussing cough suppression with hydrocodone and elixir and after much discussion he agrees to a trial of this. I also mentioned the possibility of constipation but he feels he is managing this well with routine Dulcolax. He deferred treatment with MiraLax. 2. Insomnia. Not sleeping well. He does not believe it is from coughing as this settles down in the evening. Again, after much discussion, he agrees to a trial of Melatonin. 3. Atrial fibrillation. Heart rate is irregularly irregular today. He states that it is "always like this". He continues followup for this. 4. Disposition. The patient has met with [facility]. He is unsure about when to "sign up". We spent a total of 50 minutes today reviewing the indications. I have encouraged him to consider this. He would like to talk with them again to see if he is able to come back to see us in our office once on hospice care. 5. Per patient request, he will be seen again in two weeks. CBC and CMP will be done at that time. . MTDD
[2018-08-27 10:43] LABS: PLATELET COUNT, AUTOMATED 133 K/uL (150-450)
--- NOTE | 2018-08-28 14:06 | ONCOLOGY FOLLOW UP NOTE ---
EVENT DATE: August 27, 2018 CHIEF COMPLAINT Followup for lung cancer and lymphoma. HISTORY OF PRESENT ILLNESS Patient is.an 83-year-old male who is seen today in two week followup. He was treated for both adenocarcinoma of the lung, felt to be in remission, as well as diffuse large B-cell lymphoma. He had a very difficult time with chemotherapy and last received treatment with bendamustine and Rituxan in May 2018. Since that time he has felt progressively worse and "no better". He does not have much of an appetite, although weight remains stable. He has complained of intermittent productive cough of clear phlegm, especially after eating. When seen last time, he agreed to hydrocodone elixir and today admits that this has been helpful. He has had no recent issues with constipation. He has noted an increase in his subcu nodules. ONCOLOGY HISTORY 1. 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 a. April 15, 2017, CT chest: No significant change from September 2016. Previous left upper lobectomy without locally recurrent or measurable metastatic disease. Small, partially loculated left pleural effusion. Moderate-sized hiatal hernia. Moderate coronary artery and aortic valve calcification. b. Stage IIIA (pT2a N2 M0) adenocarcinoma of the left upper lobe, status post left upper lobectomy with mediastinal sampling. 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 * Medical Oncologist: Dr. Kelly. * Radiation Oncologist: Dr. Shaikh. * Cardiothoracic Surgeon: Dr. Zavala. * Sheet Catcher: Dr. Carballo. c. April 03, 2015 CT chest: Left upper lobe mass abutting left superior mediastinum and upper left hilum with mildly prominent left hilar lymph nodes and borderline prominent mediastinal lymph nodes. d. April 20, 2015: Bronchoscopy. Pathology: Subcarinal lymph node negative, hilar lymph node negative. Left upper lobe brushing consistent with adenocarcinoma. Left upper lobe needle aspirate consistent with adenocarcinoma. e. April 25, 2015, CT PET: Spiculated mass of the medial left upper lobe measuring 3 x 4.6 cm, SUV = 21.4. Left suprahilar lymph node with an SUV of 9.6, but no hypermetabolic mediastinal lymphadenopathy, and no evidence of metastatic disease. f. May 11, 2015: Left upper lobectomy with mediastinal sampling, complicated by pneumothorax. 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 Perineural invasion was present, however. One peribronchial lymph node was positive, and one AP window lymph node was positive (2 of 20 lymph nodes total). Surgical stage: [id number]. Molecular profiling: ALK, EGFR, BRAF, and HER-2/dayne are negative. The sample was positive for a KRAS mutation as well as a MET splice site variant (exon 14). g. July 18, 2015: Initiation of adjuvant carboplatin/paclitaxel with plan for two cycles, followed by adjuvant radiation therapy. All treatment was complete in September 2015. h. January 02, 2016, CT PET: Interval left lobectomy. Moderate left pleural effusion. No evidence of residual or metastatic glucose-active disease. Minimal ascites. i. April 13, 2016, CT chest: Postop changes to the left lung. Moderate left pleural effusion. No evidence of recurrent disease. j. October 15, 2016, CT chest: Stable postoperative changes of left upper lobectomy. No evidence of recurrent lung carcinoma or metastatic disease. There is a large gastric hiatal hernia. k. September 10, 2017, CT PET scan: Interval development of multifocal areas of hypermetabolic metastatic disease. Multiple hypermetabolic subcutaneous nodules within chest. Interval development of hypermetabolic left neck base lymph node. Right cardiophrenic angle lymph nodes. Ill-defined curvilinear soft tissue anterior to left heart with new hypermetabolic activity. New osseous metastasis within proximal left humerus and multiple ribs. Sclerosis within right cricoid cartilage with low-level metabolic uptake. Postsurgical changes from left upper lobectomy. 2. Diffuse large B cell lymphoma. a. Diagnosis made by way of biopsy of subcutaneous nodule that had presented on followup imaging for surveillance of his lung cancer. b. Status post bone marrow biopsy that shows no involvement of diffuse large B cell lymphoma. c. September 2015: Initiation of chemotherapy with R-CVP for cycle one. Cycle two R-CHOP has now been administered. Cycle five of chemotherapy has been completed. d. December 2015: Completion of his sixth cycle of chemotherapy. All cycles except cycle two were R-CVP. e. April 2018: Initiation of bendamustine and rituximab chemotherapy. f. June 30, 2018, CT/PET scan: Interval resolution of uptake in the left humerus as well as subcutaneous nodules and left axillary lymph node. There is slightly increased uptake in the left hilar region without a corresponding change in CT. There is pleural uptake anteriorly in the left chest near the fourth, fifth, and seventh ribs with slightly increased FDG avidity. There are no new sites of disease. There are postoperative changes noted from left upper lobectomy with a [id number] loculated left-sided pleural effusion, unchanged. PAST MEDICAL HISTORY 1. Hyperlipidemia. 2. Hypertension. 3. History of paroxysmal atrial fibrillation. 4. Gastroesophageal reflux disease with hiatal hernia. 5. History of reflux esophagitis. 6. History of renal insufficiency. 7. BPH. 8. Stage 3 chronic kidney disease. 9. History of nocturia. FAMILY HISTORY Brother with CLL. Father with bladder cancer. SOCIAL HISTORY Patient is . He is retired from [employer] at . They have three grown children. He quit cigarettes many years ago. He previously had one to two drinks per day. MEDICATIONS 1. Flomax. 2. Lasix. 3. Metoprolol. 4. Diltiazem. 5. Senna. 6. Docusate. 7. Eliquis. 8. Pravastatin. ALLERGIES IV CONTRAST DYE, which reportedly causes rash. REVIEW OF SYSTEMS A 12-point review of systems is performed and is negative except as stated above. PHYSICAL EXAMINATION VITAL SIGNS: Weight 75.9 kg. BP 133/79, P 88, R 16, temp 97.9, O2 sat 90%. GENERAL: Patient is a well-developed, well-nourished male in no acute distress. HEAD: Normocephalic, atraumatic. EYES: Sclerae anicteric. MOUTH: Moist mucous membranes without lesions. NECK: Supple. No palpable adenopathy. LUNGS: Clear bilaterally. CARDIOVASCULAR: Heart rate irregularly irregular, 88 per minute. EXTREMITIES: 1+ chronic pedal edema. NEUROLOGIC: Nonfocal. SKIN: An increase in firm subcutaneous ill-formed nodules are noted on his trunk back of his arms, upper thighs and inner thighs. Masses are ill-defined. Some are slightly discolored and darker. LAB CBC today reveals a WBC of 4.3, ANC 2.9, hemoglobin 12.0, hematocrit 35.9, platelets 133,000. CMP is within normal limits except for a slightly low albumin of 3.4. IMPRESSION AND PLAN The patient is an 83-year-old male who has been treated for both an adenocarcinoma of the left lung and diffuse large B-cell lymphoma. He has had significant toxicity with chemotherapy and has felt poorly since completion of his last cycle of bendamustine and Rituxan in May 2018. 1. Lymphoma. The number of ill-defined, firm, subcutaneous nodules on his back, chest and upper arms and legs have increased. They are not painful but he has noted overall progression. However, he remains clear in his desire not to receive any treatment for lymphoma. 2. Cough. He presented two weeks ago with productive cough with clear/white phlegm. This occurred more after eating. I prescribed hydrocodone elixir and he states that this helped. This is refilled for him today. 3. GI. No recent issues with constipation. He will use MiraLax if this were to occur. 4. Insomnia. Previously not sleeping well. He has tried melatonin, which has been somewhat helpful. 5. Atrial fibrillation. Heart rate is irregularly irregular. He continues Eliquis, metoprolol and diltiazem. 6. Disposition. The patient has met with [facility]. He remains unclear of when to be admitted but feels he does not need the care offered at this time. He would like to be seen again in followup. This will be scheduled in two weeks with repeat labs at that time. . MTDD
[2018-09-10 10:49] VITALS: BP 96/55
[2018-09-10 10:50] LABS: PLATELET COUNT, AUTOMATED 142 K/uL (150-450)
--- NOTE | 2018-09-11 20:51 | ONCOLOGY FOLLOW UP NOTE ---
EVENT DATE: September 10, 2018 CHIEF COMPLAINT Followup for lung cancer and lymphoma. HISTORY OF PRESENT ILLNESS Patient is an 83-year-old male who was seen today in followup. He was treated for both adenocarcinoma of the lung, felt to be in remission, as well as diffuse large B-cell lymphoma. He last received treatment with bendamustine and Rituxan in May 2018. Since that time, he has decided against further treatment. Unfortunately, he continues to have more subcutaneous nodules. He describes a cough which is more or less the same. This generally occurs after meals, so he has been taking low-dose hydrocodone elixir now before both lunch and dinner. He feels this has helped him significantly. His chronic lower extremity edema has decreased, and he suspects his urine output has also decreased. He realizes he has higher oxygen requirements now, but otherwise denies any significant changes. ONCOLOGY HISTORY 1. 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 a. April 15, 2017, CT chest: No significant change from September 2016. Previous left upper lobectomy without locally recurrent or measurable metastatic disease. Small, partially loculated left pleural effusion. Moderate-sized hiatal hernia. Moderate coronary artery and aortic valve calcification. b. Stage IIIA (pT2a N2 M0) adenocarcinoma of the left upper lobe, status post left upper lobectomy with mediastinal sampling. 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 * Medical Oncologist: Dr. Kelly. * Radiation Oncologist: Dr. Shaikh. * Cardiothoracic Surgeon: Dr. Zavala. * Smoke Inspector: Dr. Carballo. c. April 03, 2015, CT chest: Left upper lobe mass abutting left superior mediastinum and upper left hilum with mildly prominent left hilar lymph nodes and borderline prominent mediastinal lymph nodes. d. April 20, 2015, bronchoscopy. Pathology: Subcarinal lymph node negative, hilar lymph node negative. Left upper lobe brushing consistent with adenocarcinoma. Left upper lobe needle aspirate consistent with adenocarcinoma. e. April 25, 2015, CT PET: Spiculated mass of the medial left upper lobe measuring 3 x 4.6 cm, SUV = 21.4. Left suprahilar lymph node with an SUV of 9.6, but no hypermetabolic mediastinal lymphadenopathy, and no evidence of metastatic disease. f. May 11, 2015: Left upper lobectomy with mediastinal sampling, complicated by pneumothorax. 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 Perineural invasion was present, however. One peribronchial lymph node was positive, and one AP window lymph node was positive (two of 20 lymph nodes total). Surgical stage: pT2a pN0 cM0. Molecular profiling: ALK, EGFR, BRAF, and HER-2/dayne are negative. The sample was positive for a KRAS mutation as well as a MET splice site variant (exon 14). g. July 18, 2015: Initiation of adjuvant carboplatin/paclitaxel with plan for two cycles, followed by adjuvant radiation therapy. All treatment was complete in September 2015. h. January 02, 2016, CT PET: Interval left lobectomy. Moderate left pleural effusion. No evidence of residual or metastatic glucose-active disease. Minimal ascites. i. April 13, 2016, CT chest: Postop changes to the left lung. Moderate left pleural effusion. No evidence of recurrent disease. j. October 15, 2016, CT chest: Stable postoperative changes of left upper lobectomy. No evidence of recurrent lung carcinoma or metastatic disease. There is a large gastric hiatal hernia. k. September 10, 2017, CT PET scan: Interval development of multifocal areas of hypermetabolic metastatic disease. Multiple hypermetabolic subcutaneous nodules within chest. Interval development of hypermetabolic left neck base lymph node. Right cardiophrenic angle lymph nodes. Ill-defined curvilinear soft tissue anterior to left heart with new hypermetabolic activity. New osseous metastases within proximal left humerus and multiple ribs. Sclerosis within right cricoid cartilage with low-level metabolic uptake. Postsurgical changes from left upper lobectomy. 2. Diffuse large B-cell lymphoma. a. Diagnosis made by way of biopsy of subcutaneous nodule that had presented on followup imaging for surveillance of his lung cancer. b. Status post bone marrow biopsy that shows no involvement of diffuse large B- cell lymphoma. c. September 2015: Initiation of chemotherapy with R-CVP for cycle one. Cycle two R-CHOP has now been administered. Cycle five of chemotherapy has been completed. d. December 2015: Completion of his sixth cycle of chemotherapy. All cycles except cycle two were R-CVP. e. April 2018: Initiation of bendamustine and rituximab chemotherapy. f. June 30, 2018, CT PET scan: Interval resolution of uptake in the left humerus as well as subcutaneous nodules and left axillary lymph node. There is slightly increased uptake in the left hilar region without a corresponding change in CT. There is pleural uptake anteriorly in the left chest near the fourth, fifth, and seventh ribs with slightly increased FDG avidity. There are no new sites of disease. There are postoperative changes noted from left upper lobectomy with a [id number] loculated left-sided pleural effusion, unchanged. PAST MEDICAL HISTORY 1. Hyperlipidemia. 2. Hypertension. 3. History of paroxysmal atrial fibrillation. 4. Gastroesophageal reflux disease with hiatal hernia. 5. History of reflux esophagitis. 6. History of renal insufficiency. 7. BPH. 8. Stage 3 chronic kidney disease. 9. History of nocturia. FAMILY HISTORY Brother with CLL. Father with bladder cancer. SOCIAL HISTORY Patient is . He is retired from [employer] at . They have three grown children. He quit cigarettes many years ago. He previously had one to two drinks per day. MEDICATIONS 1. Flomax. 2. Lasix. 3. Metoprolol. 4. Diltiazem. 5. Senna. 6. Docusate. 7. Eliquis. 8. Pravastatin. 9. Hydrocodone elixir 5/325 mg 10-15 mL q.6 hours p.r.n. cough. ALLERGIES IV CONTRAST DYE, which reportedly causes rash. REVIEW OF SYSTEMS A 12-point review of systems is performed and is negative except as stated above. PHYSICAL EXAMINATION VITAL SIGNS: Weight 76.4 kg. BP 95/55, P 88, R 16, temp 97.2, O2 sat 77% on room air, improved after putting on his oxygen. GENERAL: Patient is a well-developed, but fatigued-appearing male in no acute distress. HEAD: Normocephalic, atraumatic. EYES: Sclerae anicteric. MOUTH: Moist mucous membranes. NECK: Supple. No palpable adenopathy. LUNGS: Slightly diminished, but clear. CARDIOVASCULAR: Heart rate irregularly irregular, 88 per minute, without murmur. EXTREMITIES: Trace to 1+ pretibial edema bilaterally. NEUROLOGIC: Nonfocal. SKIN: Continued ill-formed, firm subcutaneous nodules on his trunk, back of his arms, upper thighs, and inner thighs. The largest is on the back of his left upper arm. LABORATORY CBC today reveals WBC of 4.3, hemoglobin 11.4, hematocrit 34.0, platelets 142,000. CMP is within normal limits except for an albumin of 3.3. IMPRESSION AND PLAN The patient is an 83-year-old male who has been treated for both an adenocarcinoma of the left lung and diffuse large B-cell lymphoma. He has had significant toxicity with chemotherapy and has felt poorly since completion of his last cycle of bendamustine and Rituxan in May 2018. 1. Lymphoma. The ill-defined, firm subcutaneous nodules appear to be spreading somewhat. The largest is on the back of his left upper arm. These are not painful, but he notes that they are increasing in size. He remains clear in his desire not to receive any treatment for lymphoma. 2. Cough. Under much better control with hydrocodone elixir. He uses this before lunch and dinner. We discussed that he could use it more often if needed. 3. Insomnia. Now using melatonin which has been helpful. He will continue. 4. Atrial fibrillation. Heart rate is irregularly irregular. He continues Eliquis, metoprolol, and diltiazem. He is asymptomatic. 5. Dr. Kelly also met with patient and his today. Geovany reaffirmed his choice not to receive any further chemotherapy for likely lymphoma progression. We reviewed that we were here to assist him in any way possible. He has met with hospice, but does not feel he is "ready." We will continue to follow him here for symptom management. He and his agree with this plan. 6. Follow up in three weeks for continued care. CBC and CMP will be drawn at that time. [facility]
[~2018-10-01 10:29] MED LIST changes: -ALTEPLASE RECOMB 2 MG VIAL IVP PRN; -BENDAMUSTINE HCL IVPB ONE; -DEXTROSE 5%(*) 100 ML BAG 100 ML IVPB PRN; -HYDR-4309 PO; +HYDR-653 PO; -IOPAMIDOL 76% 75 ML INFUS BTL 75 ML ONE; -KCL (*) 20 MEQ/100 ML PREMIX 100 ML IVPB ONE; -NS 0.9% IVPB ONE; -NS(*) 0.9% 100 ML BAG 100 ML IVPB PRN; -WATER FOR INJ,STERILE 20 ML IVP PRN; -diphenhydrAMINE 25 MG CAP PO PRN; -riTUXimab 500 MG/50 ML SDV 500 MG, riTUXimab 100 MG/10 ML SDV 200 MG in NS(*) 0.9% 1000... IV ONE; -riTUXimab 500 MG/50 ML SDV 500 MG, riTUXimab 100 MG/10 ML SDV 200 MG in NS(*) 0.9% 500 ... IV ONE; -riTUXimab 500 MG/50 ML SDV 500 MG, riTUXimab 100 MG/10 ML SDV 200 MG in NS(*) 0.9% 500 ... IV PRN
[2018-10-01 10:51] VITALS: BP 94/59
[2018-10-01 10:59] LABS: PLATELET COUNT, AUTOMATED 150 K/uL (150-450)
--- NOTE | 2018-10-01 15:11 | ONCOLOGY FOLLOW UP NOTE ---
EVENT DATE: October 01, 2018 CHIEF COMPLAINT Followup for lung cancer and lymphoma. HISTORY OF PRESENT ILLNESS Patient is an 83-year-old male who was seen today in followup. He has received treatment for both adenocarcinoma of the lung, felt to be in remission, as well as diffuse large B-cell lymphoma. He last received treatment with bendamustine and Rituxan in May 2018. Since then, he has decided against further treatment, although continues to feel he is slowly and surely worsening. He has chronic fatigue. He uses oxygen which has helped with his shortness of breath. Hydrocodone elixir has been very helpful for both cough and pain. He does note increasing subcutaneous nodules and today presents with an especially large one on his left breast. He denies any other specific complaints. ONCOLOGY HISTORY 1. 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 a. April 15, 2017, CT chest: No significant change from September 2016. Previous left upper lobectomy without locally recurrent or measurable metastatic disease. Small, partially loculated left pleural effusion. Moderate-sized hiatal hernia. Moderate coronary artery and aortic valve calcification. b. Stage IIIA (pT2a N2 M0) adenocarcinoma of the left upper lobe, status post left upper lobectomy with mediastinal sampling. 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 * Medical Oncologist: Dr. Kelly. * Radiation Oncologist: Dr. Shaikh. * Cardiothoracic Surgeon: Dr. Zavala. * Hr Intern: Dr. Carballo. c. April 03, 2015, CT chest: Left upper lobe mass abutting left superior mediastinum and upper left hilum with mildly prominent left hilar lymph nodes and borderline prominent mediastinal lymph nodes. d. April 20, 2015, bronchoscopy. Pathology: Subcarinal lymph node negative, hilar lymph node negative. Left upper lobe brushing consistent with adenocarcinoma. Left upper lobe needle aspirate consistent with adenocarcinoma. e. April 25, 2015, CT PET: Spiculated mass of the medial left upper lobe measuring 3 x 4.6 cm, SUV = 21.4. Left suprahilar lymph node with an SUV of 9.6, but no hypermetabolic mediastinal lymphadenopathy, and no evidence of metastatic disease. f. May 11, 2015: Left upper lobectomy with mediastinal sampling, complicated by pneumothorax. 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 Perineural invasion was present, however. One peribronchial lymph node was positive, and one AP window lymph node was positive (two of 20 lymph nodes total). Surgical stage: pT2a pN0 cM0. Molecular profiling: ALK, EGFR, BRAF, and HER-2/dayne are negative. The sample was positive for a KRAS mutation as well as a MET splice site variant (exon 14). g. July 18, 2015: Initiation of adjuvant carboplatin/paclitaxel with plan for two cycles, followed by adjuvant radiation therapy. All treatment was complete in September 2015. h. January 02, 2016, CT PET: Interval left lobectomy. Moderate left pleural effusion. No evidence of residual or metastatic glucose-active disease. Minimal ascites. i. April 13, 2016, CT chest: Postop changes to the left lung. Moderate left pleural effusion. No evidence of recurrent disease. j. October 15, 2016, CT chest: Stable postoperative changes of left upper lobectomy. No evidence of recurrent lung carcinoma or metastatic disease. There is a large gastric hiatal hernia. k. September 10, 2017, CT PET scan: Interval development of multifocal areas of hypermetabolic metastatic disease. Multiple hypermetabolic subcutaneous nodules within chest. Interval development of hypermetabolic left neck base lymph node. Right cardiophrenic angle lymph nodes. Ill-defined curvilinear soft tissue anterior to left heart with new hypermetabolic activity. New osseous metastases within proximal left humerus and multiple ribs. Sclerosis within right cricoid cartilage with low-level metabolic uptake. Postsurgical changes from left upper lobectomy. 2. Diffuse large B-cell lymphoma. a. Diagnosis made by way of biopsy of subcutaneous nodule that had presented on followup imaging for surveillance of his lung cancer. b. Status post bone marrow biopsy that shows no involvement of diffuse large B- cell lymphoma. c. September 2015: Initiation of chemotherapy with R-CVP for cycle one. Cycle two R-CHOP has now been administered. Cycle five of chemotherapy has been completed. d. December 2015: Completion of his sixth cycle of chemotherapy. All cycles except cycle two were R-CVP. e. April 2018: Initiation of bendamustine and rituximab chemotherapy. f. June 30, 2018, CT PET scan: Interval resolution of uptake in the left humerus as well as subcutaneous nodules and left axillary lymph node. There is slightly increased uptake in the left hilar region without a corresponding change in CT. There is pleural uptake anteriorly in the left chest near the fourth, fifth, and seventh ribs with slightly increased FDG avidity. There are no new sites of disease. There are postoperative changes noted from left upper lobectomy with a [id number] loculated left-sided pleural effusion, unchanged. PAST MEDICAL HISTORY 1. Hyperlipidemia. 2. Hypertension. 3. History of paroxysmal atrial fibrillation. 4. Gastroesophageal reflux disease with hiatal hernia. 5. History of reflux esophagitis. 6. History of renal insufficiency. 7. BPH. 8. Stage 3 chronic kidney disease. 9. History of nocturia. FAMILY HISTORY Brother with CLL. Father with bladder cancer. SOCIAL HISTORY Patient is . He is retired from [employer] at . They have three grown children. He quit cigarettes many years ago. He previously had one to two drinks per day. MEDICATIONS 1. Flomax. 2. Lasix. 3. Metoprolol. 4. Diltiazem. 5. Senna. 6. Docusate. 7. Eliquis. 8. Pravastatin. 9. Hydrocodone elixir 5/325 mg 10-15 mL q.6 hours p.r.n. cough. ALLERGIES IV CONTRAST DYE, which reportedly causes rash. REVIEW OF SYSTEMS A 12-point review of systems is performed and is negative except as stated above. PHYSICAL EXAMINATION VITAL SIGNS: Weight 76.1 kg. BP 94/59, P 76, R 16, temp 97, O2 sat 89% on 0.5L per nasal cannula. GENERAL: Patient is a well-developed, but fatigued-appearing male in no acute distress. HEAD: Normocephalic, atraumatic. EYES: Sclerae anicteric. MOUTH: Moist mucous membranes. NECK: Supple. No palpable adenopathy. LUNGS: Slightly diminished bilaterally, but clear. CARDIOVASCULAR: Heart rate irregularly irregular, 76 per minute. EXTREMITIES: 1+ pretibial edema bilaterally. NEUROLOGIC: Nonfocal. SKIN: Increasing ill-formed, firm subcutaneous nodules on his trunk, back of his arms, upper thighs, and inner thighs. Recent presented with a large left breast mass, very firm and ill-defined, which has appeared in the last two weeks. LABORATORY CBC today reveals WBC of 3.7, hemoglobin 10.6, hematocrit 32.2, platelets 150,000. CMP is completely within normal limits. IMPRESSION AND PLAN The patient is an 83-year-old male who has been treated for both an adenocarcinoma of the left lung and diffuse large B-cell lymphoma. He has had significant toxicity with chemotherapy and has felt poorly since completion of his last cycle of bendamustine and Rituxan in May 2018. 1. Lymphoma. Increasing ill-defined, firm subcutaneous nodules. He states that they "come and go." He now presents with a large left breast mass which has occurred over the past two weeks. These are not painful or fluctuant, very firm and ill-defined. 2. Cough. Under better control with hydrocodone elixir. He especially finds this helpful before lunch and dinner. He notes that he may be starting to take more as he has overall discomfort. I have refilled hydrocodone elixir 7.5/325 mg/15 mL, 600 mL for him today. 3. Atrial fibrillation. Continue Eliquis, metoprolol, and diltiazem. Heart rate remains irregularly irregular. 4. Shortness of breath. Oxygen requirements have increased somewhat. He also notes more fatigue when taking a shower and often has to rest with oxygen on before he can continue. He is very conscious of using oxygen as needed. 5. End of life care. Patient remains confused about when to start with hospice. He feels he is very slowly worsening, but without specific changes at this time. He understands that he can mobilize hospice care when he feels he is ready for this, but at this time believes he is "not ready." 6. Follow up with Dr. Kelly on 10/29/18 for continued care. CBC and CMP will be drawn at that time. He will notify us if he feels he needs to be seen before then. [facility]
== END 2018-10-05 ==
LOC: SPU 10:29
PROVIDERS: ATTEND Internal Medicine Medical Oncology
DX: C34.92 Malignant neoplasm of unspecified part of left bronchus or lung (principal); I10 Essential (primary) hypertension; E78.00 Pure hypercholesterolemia, unspecified; R53.83 Other fatigue; R05 Cough; I48.91 Unspecified atrial fibrillation; G47.00 Insomnia, unspecified; Z99.81 Dependence on supplemental oxygen; Z92.21 Personal history of antineoplastic chemotherapy; N63.20 Unspecified lump in the left breast, unspecified quadrant; Z87.891 Personal history of nicotine dependence
CPT/HCPCS: 36415; 83615; 85025; G0463; 82040; 82247; 82310; 82374; 82435; 82565; 82947; 84075; 84132; 84155; 84295; 84450; 84460; 84520; 99212

== ENCOUNTER 2018-11-05 11:14 | Outpatient (RCR) | payer MEDICARE, BC ==
[2018-10-29 13:13] VITALS: BP 88/54
[2018-10-29 13:31] LABS: PLATELET COUNT, AUTOMATED 93 K/uL (150-450)
[2018-10-29] MEDS: LIDOCAINE/SOD BICARB 8.4% SYR ID PRN (14:20)
[2018-10-29] MEDS: HEPARIN FLSH (PORT) 500 UN/5ML IVP PRN (14:20)
--- NOTE | 2018-10-29 17:35 | ONCOLOGY FOLLOW UP NOTE ---
EVENT DATE: October 29, 2018 REASON FOR FOLLOWUP 1. 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 2. Diffuse large B-cell lymphoma. a. Status post R-CHOP/R-CVP chemotherapy, six cycles complete with evidence of residual disease on followup CT PET scan post completion of chemo. b. Status post 3 cycles of bendamustine and rituximab. INTERIM HISTORY Geovany returns to clinic for a followup visit today. He is in clinic with his today, and it is her birthday. Geovany reports that he has been feeling rather miserable since our last visit. He remains tired and at times short of breath. He requires oxygen. His biggest complaint, however, has been a rather rapid progression of multiple subcutaneous nodules, some of which now are quite large. He reports no fevers, chills, or sweats. He does have ongoing fatigue. The nodules themselves have not been particularly painful. His appetite is modest, but his weight has been stable. He has had ongoing leg swelling. He has stopped taking his Lasix, and he is concerned about his sodium. He also has questions about potassium supplementation. REVIEW OF SYSTEMS Otherwise negative, and all systems were reviewed. ONCOLOGY HISTORY 1. 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 a. April 15, 2017, CT chest: No significant change from September 2016. Previous left upper lobectomy without locally recurrent or measurable metastatic disease. Small, partially loculated left pleural effusion. Moderate-sized hiatal hernia. Moderate coronary artery and aortic valve calcification. b. Stage IIIA (pT2a N2 M0) adenocarcinoma of the left upper lobe, status post left upper lobectomy with mediastinal sampling. 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 * Medical Oncologist: Dr. Kelly. * Radiation Oncologist: Dr. Shaikh. * Cardiothoracic Surgeon: Dr. Zavala. * [employer] Production [employer] Operator: Dr. Carballo. c. April 03, 2015 CT chest: Left upper lobe mass abutting left superior mediastinum and upper left hilum with mildly prominent left hilar lymph nodes and borderline prominent mediastinal lymph nodes. d. April 20, 2015: Bronchoscopy. Pathology: Subcarinal lymph node negative, hilar lymph node negative. Left upper lobe brushing consistent with adenocarcinoma. Left upper lobe needle aspirate consistent with adenocarcinoma. e. April 25, 2015, CT PET: Spiculated mass of the medial left upper lobe measuring 3 x 4.6 cm, SUV = 21.4. Left suprahilar lymph node with an SUV of 9.6, but no hypermetabolic mediastinal lymphadenopathy, and no evidence of metastatic disease. f. May 11, 2015: Left upper lobectomy with mediastinal sampling, complicated by pneumothorax. 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 Perineural invasion was present, however. One peribronchial lymph node was positive, and one AP window lymph node was positive (2 of 20 lymph nodes total). Surgical stage: [id number]. Molecular profiling: ALK, EGFR, BRAF, and HER-2/dayne are negative. The sample was positive for a KRAS mutation as well as a MET splice site variant (exon 14). g. July 18, 2015: Initiation of adjuvant carboplatin/paclitaxel with plan for two cycles, followed by adjuvant radiation therapy. All treatment was complete in September 2015. h. January 02, 2016, CT PET: Interval left lobectomy. Moderate left pleural effusion. No evidence of residual or metastatic glucose-active disease. Minimal ascites. i. April 13, 2016, CT chest: Postop changes to the left lung. Moderate left pleural effusion. No evidence of recurrent disease. j. October 15, 2016, CT chest: Stable postoperative changes of left upper lobectomy. No evidence of recurrent lung carcinoma or metastatic disease. There is a large gastric hiatal hernia. k. September 10, 2017, CT PET scan: Interval development of multifocal areas of hypermetabolic metastatic disease. Multiple hypermetabolic subcutaneous nodules within chest. Interval development of hypermetabolic left neck base lymph node. Right cardiophrenic angle lymph nodes. Ill-defined curvilinear soft tissue anterior to left heart with new hypermetabolic activity. New osseous metastasis within proximal left humerus and multiple ribs. Sclerosis within right cricoid cartilage with low-level metabolic uptake. Postsurgical changes from left upper lobectomy. 2. Diffuse large B-cell lymphoma. a. Diagnosis made by way of biopsy of subcutaneous nodule that had presented on followup imaging for surveillance of his lung cancer. b. Status post bone marrow biopsy that shows no involvement of diffuse large B- cell lymphoma. c. September 2015: Initiation of chemotherapy with R-CVP for cycle one. Cycle two R-CHOP has now been administered. Cycle five of chemotherapy has been completed. d. December 2015: Completion of his sixth cycle of chemotherapy. All cycles except cycle two were R-CVP. e. April 2018: Initiation of bendamustine and rituximab chemotherapy. f. June 30, 2018, CT/PET scan: Interval resolution of uptake in the left humerus as well as subcutaneous nodules and left axillary lymph node. There is slightly increased uptake in the left hilar region without a corresponding change in CT. There is pleural uptake anteriorly in the left chest near the fourth, fifth, and seventh ribs with slightly increased FDG avidity. There are no new sites of disease. There are postoperative changes noted from left upper lobectomy with a [id number] loculated left-sided pleural effusion, unchanged. PAST MEDICAL HISTORY 1. Hyperlipidemia. 2. Hypertension. 3. History of paroxysmal atrial fibrillation. 4. Gastroesophageal reflux disease with hiatal hernia. 5. History of reflux esophagitis. 6. History of renal insufficiency. 7. BPH. 8. Stage 3 chronic kidney disease. 9. History of nocturia. ALLERGIES IV CONTRAST DYE which reportedly causes rash. MEDICATIONS 1. Tamsulosin. 2. Potassium. 3. Lasix (now discontinued). 4. Metoprolol. 5. Diltiazem. 6. Senna. 7. Docusate. 8. Apixaban. VITAL SIGNS Temperature is 97.3, blood pressure 88/54, heart rate is 79, respirations 18, oxygen saturation is 90% on 1L nasal cannula. PHYSICAL EXAMINATION GENERAL: Patient is alert and oriented times three, in no apparent distress, sitting in exam room chair. He is interactive and pleasant. He appears chronically ill, thin, but not cachectic. HEENT: Anicteric sclerae and no significant oropharyngeal lesions. He is wearing oxygen by nasal cannula. SKIN: Multiple subcutaneous nodules. Some are quite large, in particular an area within the left pectoral area, but covering his chest, abdomen, and diffusely over his back. Several areas are ecchymotic over the lower abdomen. Skin exam otherwise appears somewhat jaundiced. EXTREMITIES: Significant edema of the bilateral lower extremities, but no erythema or particular tenderness to palpation. LABORATORY STUDIES Currently pending. IMAGING None today. ASSESSMENT AND PLAN 1. Relapsed diffuse large B-cell lymphoma. I had a good visit with Geovany and his today. We were accompanied by Henna Guevara, Nurse Practitioner, for the entirety of today's visit. Geovany is struggling. He appears to be jaundiced, but his labs are currently pending, and he has a rather substantial and rapid progression of subcutaneous nodularity. As discussed, a prior biopsy of one of these nodules had revealed his first diagnosis of diffuse large B-cell lymphoma, and presumably this is the same process. Also, I would anticipate that if we were to perform imaging today, we would see rather diffuse findings internally as well. We will await his laboratory studies. He does have questions about potassium supplementation and about his sodium, and we will need to follow up on these. Geovany is curious about which process in particular in his body is eventually going to take his life. We spent time discussing this today as well as his wishes for symptom management alone via best supportive care or potentially to intervene once again. He does not want to receive chemotherapy, and I think at this point cytotoxic chemotherapy is not a good idea. I would consider anti-CD20 monoclonal antibody therapy once again. He has received rituximab in the past, but with most recent lack of response. We then discussed the merits of trying Gazyva. We discussed mechanism of action and potential risks. I do think this would at this point really be his only reasonable option based on his presentation and performance status. Geovany would like to explore this from what I can tell today. I do think he will take a few days at home to consider his options, however. We will work on preauthorization, and if this is possible, he will return for treatment education with Henna Guevara as soon as possible. 2. Stage III lung adenocarcinoma. At this point, we cannot rule out a lung cancer recurrence. Re-imaging could arguably help, but Geovany is not enthusiastic about going for a repeat CT scan or PET scan. At this point, we will assume that the vast majority of his symptoms per subcutaneous nodularity is from his lymphoma and treat accordingly. I spent a total of 30 minutes of time face to face with the patient and his today, and 25 minutes of this were spent in direct counseling and coordination of care. He will follow up here in one week. TORI
--- NOTE | 2018-11-04 11:25 | Oncology Note ---
Call received from pt. He feels that he is declining rapidly. We are still trying to get compassionate use for Sindy but this has not been accomplished as of today. Geovany has re-established contact with hospice. He is very weak, needing to wear O2 continuously. Hgb last week 8.2. He agrees to be seen on 11/05 for re-eval. CBC will be drawn as he may need transfusion. We discussed that this was indicative of significant progression of disease; he states understanding. OXANA NOONAN-C Nov 04, 2018 11:25
[2018-11-05] VITALS (16 sets, daily range): BP systolic 70–118; BP diastolic 40–65
--- NOTE | 2018-11-05 08:22 | NUR ---
rec'd information that patient's drug replacement through [employer] for Gazyva was approved. has requested the drug be shipped on 11/06 to be delivered on 11/07, however, there is a possibility that the pharmacy shipping the drug may not be able to ship it out by then. pharmacy rep indicated SW should call back around 10:00 on 11/06 to check on the status of the request. [place] [id number], the pharmacy phone number is [phone].
[~2018-11-05 11:14] MED LIST changes: +ALTEPLASE RECOMB 2 MG VIAL IVP PRN; +DEXTROSE 5%(*) 100 ML BAG 100 ML IVPB PRN; +NS(*) 0.9% 100 ML BAG 100 ML IVPB PRN; +NS(*) 0.9% 500 ML BAG 500 ML IV PRN; +WATER FOR INJ,STERILE 20 ML IVP PRN
[2018-11-05 11:35] LABS: PLATELET COUNT, AUTOMATED 86 K/uL (150-450)
[2018-11-05] MEDS: LIDOCAINE/SOD BICARB 8.4% SYR ID PRN (13:10)
[2018-11-05] MEDS ORDERED: ALLO-119 PO (15:14)
[2018-11-05] MEDS: HEPARIN FLSH (PORT) 500 UN/5ML IVP PRN (19:37)
--- NOTE | 2018-11-07 10:09 | NUR ---
SW rec'd confirmation that the patient's Gazyva was being shipped and will arrive today, on 11/07/18.
--- NOTE | 2018-11-07 18:19 | ONCOLOGY FOLLOW UP NOTE ---
EVENT DATE: November 05, 2018 CHIEF COMPLAINT Followup for lymphoma. DICTATION ENDS HERE. MTDD
--- NOTE | 2018-11-07 21:01 | ONCOLOGY FOLLOW UP NOTE ---
EVENT DATE: November 05, 2018 CHIEF COMPLAINT Followup for lymphoma and lung cancer. HISTORY OF PRESENT ILLNESS Patient is an 83-year-old male who was seen today in followup. When seen by Dr. Kelly on 10/29/18, his subcutaneous nodules had increased in size and number. They were not painful, but several were ecchymotic. No open lesions noted. Dr. Kelly discussed treatment with Gazyva. We are obtaining this through Patient Assistance, and patient presents with his to discuss the possibility of beginning this treatment next week. However, today, he states that he is much weaker. He feels "terrible all the time." He is overwhelmed by how poorly he feels. He states that his legs "gave out" due to weakness. He remains unsure of whether or not to proceed with treatment. He is also noting more shortness of breath. ONCOLOGY HISTORY 1. 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 a. April 15, 2017, CT chest: No significant change from September 2016. Previous left upper lobectomy without locally recurrent or measurable metastatic disease. Small, partially loculated left pleural effusion. Moderate-sized hiatal hernia. Moderate coronary artery and aortic valve calcification. b. Stage IIIA (pT2a N2 M0) adenocarcinoma of the left upper lobe, status post left upper lobectomy with mediastinal sampling. 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 * Medical Oncologist: Dr. Kelly. * Radiation Oncologist: Dr. Shaikh. * Cardiothoracic Surgeon: Dr. Zavala. * Dance Artist: Dr. Carballo. c. April 03, 2015, CT chest: Left upper lobe mass abutting left superior mediastinum and upper left hilum with mildly prominent left hilar lymph nodes and borderline prominent mediastinal lymph nodes. d. April 20, 2015, bronchoscopy. Pathology: Subcarinal lymph node negative, hilar lymph node negative. Left upper lobe brushing consistent with adenocarcinoma. Left upper lobe needle aspirate consistent with adenocarcinoma. e. April 25, 2015, CT PET: Spiculated mass of the medial left upper lobe measuring 3 x 4.6 cm, SUV = 21.4. Left suprahilar lymph node with an SUV of 9.6, but no hypermetabolic mediastinal lymphadenopathy, and no evidence of metastatic disease. f. May 11, 2015: Left upper lobectomy with mediastinal sampling, complicated by pneumothorax. 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 Perineural invasion was present, however. One peribronchial lymph node was positive, and one AP window lymph node was positive (two of 20 lymph nodes total). Surgical stage: pT2a pN0 cM0. Molecular profiling: ALK, EGFR, BRAF, and HER-2/dayne are negative. The sample was positive for a KRAS mutation as well as a MET splice site variant (exon 14). g. July 18, 2015: Initiation of adjuvant carboplatin/paclitaxel with plan for two cycles, followed by adjuvant radiation therapy. All treatment was complete in September 2015. h. January 02, 2016, CT PET: Interval left lobectomy. Moderate left pleural effusion. No evidence of residual or metastatic glucose-active disease. Minimal ascites. i. April 13, 2016, CT chest: Postop changes to the left lung. Moderate left pleural effusion. No evidence of recurrent disease. j. October 15, 2016, CT chest: Stable postoperative changes of left upper lobectomy. No evidence of recurrent lung carcinoma or metastatic disease. There is a large gastric hiatal hernia. k. September 10, 2017, CT PET scan: Interval development of multifocal areas of hypermetabolic metastatic disease. Multiple hypermetabolic subcutaneous nodules within chest. Interval development of hypermetabolic left neck base lymph node. Right cardiophrenic angle lymph nodes. Ill-defined curvilinear soft tissue anterior to left heart with new hypermetabolic activity. New osseous metastases within proximal left humerus and multiple ribs. Sclerosis within right cricoid cartilage with low-level metabolic uptake. Postsurgical changes from left upper lobectomy. 2. Diffuse large B-cell lymphoma. a. Diagnosis made by way of biopsy of subcutaneous nodule that had presented on followup imaging for surveillance of his lung cancer. b. Status post bone marrow biopsy that shows no involvement of diffuse large B- cell lymphoma. c. September 2015: Initiation of chemotherapy with R-CVP for cycle one. Cycle two R-CHOP has now been administered. Cycle five of chemotherapy has been completed. d. December 2015: Completion of his sixth cycle of chemotherapy. All cycles except cycle two were R-CVP. e. April 2018: Initiation of bendamustine and rituximab chemotherapy. f. June 30, 2018, CT PET scan: Interval resolution of uptake in the left humerus as well as subcutaneous nodules and left axillary lymph node. There is slightly increased uptake in the left hilar region without a corresponding change in CT. There is pleural uptake anteriorly in the left chest near the fourth, fifth, and seventh ribs with slightly increased FDG avidity. There are no new sites of disease. There are postoperative changes noted from left upper lobectomy with a [id number] loculated left-sided pleural effusion, unchanged. PAST MEDICAL HISTORY 1. Hyperlipidemia. 2. Hypertension. 3. History of paroxysmal atrial fibrillation. 4. Gastroesophageal reflux disease with hiatal hernia. 5. History of reflux esophagitis. 6. History of renal insufficiency. 7. BPH. 8. Stage 3 chronic kidney disease. 9. History of nocturia. FAMILY HISTORY Brother with CLL. Father with bladder cancer. SOCIAL HISTORY Patient is . He is retired from [email or web address] at . They have three grown children. He quit cigarettes many years ago. He previously had one to two drinks per day. MEDICATIONS 1. Flomax. 2. Lasix. 3. Metoprolol. 4. Diltiazem. 5. Senna. 6. Docusate. 7. Eliquis. 8. Pravastatin. 9. Hydrocodone elixir 5/325 mg 10-15 mL q.6 hours p.r.n. cough. ALLERGIES IV CONTRAST DYE, which reportedly causes rash. REVIEW OF SYSTEMS A 12-point review of systems is performed and is negative except as stated above. PHYSICAL EXAMINATION VITAL SIGNS: Weight not taken. BP 109/67, P 85, R 16, temp 97.4, O2 sat 81% on 2L nasal cannula. HEAD: Normocephalic, atraumatic. EYES: Sclerae slightly icteric. MOUTH: Moist mucous membranes. LUNGS: Diminished bilaterally. CARDIOVASCULAR: Heart rate irregularly irregular, 85 per minute, without murmur, S3, or S4. EXTREMITIES: Pretibial edema 2+ both lower extremities. SKIN: Multiple subcutaneous nodules which have increased in number and size. Some are ecchymotic over the lower abdomen. These nodules are over his entire trunk, arms, and upper legs. LABORATORY CBC today reveals WBC of 4.0, hemoglobin 7.4, hematocrit 23.2, platelets 86,000. CMP is within normal limits except for a creatinine of 1.5 and bilirubin 2.6. Albumin is 3.2. Uric acid 7.8. IMPRESSION The patient is an 83-year-old male who has been treated for both an adenocarcinoma of the left lung and diffuse large B-cell lymphoma. He has had significant toxicity with chemotherapy and has felt poorly since completion of his last cycle of bendamustine and Rituxan in May 2018. PLAN 1. Lymphoma. As above, Dr. Kelly is recommending a trial of Gazyva. Geovany and his understand that there obviously are no guarantees to this. We briefly discussed some of the possible side effects, but he is not sure that he would like to pursue this. He has been in contact with hospice over the past few months, but is unable to make the decision at this time. 2. Anemia. Hemoglobin has decreased from 8.4 to 7.6. He is short of breath and very weak. He received two units of packed cells today. 3. Tumor lysis syndrome. Patient's uric acid is normal today, but as he may start treatment with Gazyva, allopurinol 300 mg daily is prescribed. 4. A total of 80 minutes was spent with patient and his today, greater than 75% of the time discussing possible treatment with Gazyva and end of life care. He remains unsure about whether or not to pursue treatment. We discussed that he could begin treatment on 11/10/18, as medication would then be available. He will notify us if he feels that this will be helpful. MTDD
--- NOTE | 2018-11-11 08:40 | NUR ---
VINCENT contacted the sending pharmacy and learned that the pt's drug was not shipped last because of the weather, however they forgot to reach out to reschedule a shipment, so VINCENT requested that the drug be shipped today and be received by [facility] tomorrow 11/12/18.
--- NOTE | 2018-11-11 16:46 | ONCOLOGY FOLLOW UP NOTE ---
EVENT DATE: November 11, 2018 TELEPHONE NOTE I spoke with Mr. Jha's , Yuly, today. We have received the Gazyva under compassionate use. However, Yuly tells me that he has been very weak. He is in bed "all the time." He has finally decided not to pursue this treatment. Yuly has called hospice, and they will admit the patient to their services tomorrow. Yuly and Geovany have been very grateful for the care he received. She understands that we are available if we can help her in any way. TORI
--- NOTE | 2018-11-12 08:16 | NUR ---
Interestingly, the Gazyva was received on 11/11/18 at [facility]. However, VINCENT rec'd information that the patient was planning to move forward with Hospice care. VINCENT contacted the pharmacy that sent the drug to ask about what to do with the drug now that the patient was not going to be using it and their instructions were "use it as necessary or dispose of it" - VINCENT clarified that if used it would have to be provided at no charge. VINCENT sent this information to the [facility] pharmacy.
== END 2018-11-13 14:26 | disposition home or self-care (01) ==
LOC: SPU 11:14
PROVIDERS: ATTEND Internal Medicine Medical Oncology
DX: C34.92 Malignant neoplasm of unspecified part of left bronchus or lung (principal); E78.00 Pure hypercholesterolemia, unspecified; R53.83 Other fatigue; R05 Cough; I48.91 Unspecified atrial fibrillation; G47.00 Insomnia, unspecified; Z99.81 Dependence on supplemental oxygen; Z92.21 Personal history of antineoplastic chemotherapy; R22.9 Localized swelling, mass and lump, unspecified; Z87.891 Personal history of nicotine dependence; R06.02 Shortness of breath; N18.3 Chronic kidney disease, stage 3 (moderate); C83.30 Diffuse large B-cell lymphoma, unspecified site; I12.9 Hypertensive chronic kidney disease with stage 1 through stage 4 chronic kidney disease, or unspecified chronic kidney disease
CPT/HCPCS: 36415; 84100; 85025; 86850; 86900; 86901; 86920; 96523; G0463; J1642; J7040; P9016; 36430; 82040; 82247; 82310; 82374; 82435; 82565; 82947; 84075; 84132; 84155; 84295; 84450; 84460; 84520; 99212

== ENCOUNTER → 2018-11-06 | Outpatient (REF) | payer MEDICARE, BC ==
[~2018-11-06] MED LIST changes: +ALLO-119 PO; -ALTEPLASE RECOMB 2 MG VIAL IVP PRN; -DEXTROSE 5%(*) 100 ML BAG 100 ML IVPB PRN; -NS(*) 0.9% 100 ML BAG 100 ML IVPB PRN; -NS(*) 0.9% 500 ML BAG 500 ML IV PRN; -WATER FOR INJ,STERILE 20 ML IVP PRN
== END ==
LOC: ZZSENDIN 08:52
PROVIDERS: ATTEND Nurse Practitioner
DX: C34.92 Malignant neoplasm of unspecified part of left bronchus or lung (principal)
CPT/HCPCS: 84550

== ENCOUNTER → 2018-11-13 | Outpatient (CLI) | payer MEDICARE, BC | LOC: AMB 05:35 | PROVIDERS: ATTEND Nurse Practitioner | DX: I46.9 Cardiac arrest, cause unspecified (principal) | CPT/HCPCS: A0429 ==